=== PATIENT | male | born 1985 | race Caucasian/White ===

== ENCOUNTER → 2022-12-11 08:03 | Outpatient (BNVA) | payer OTHER, SELFPAY | PROVIDERS: PCP Nurse Practitioner Primary Care; Visit Provider Nurse Practitioner Family | DX: Z13.89 Encounter for screening for other disorder (principal) ==

== ENCOUNTER → 2023-01-08 09:21 | Outpatient (BNVA) | payer OTHER, SELFPAY | PROVIDERS: PCP Nurse Practitioner Primary Care; Visit Provider Nurse Practitioner Family | DX: Z13.89 Encounter for screening for other disorder (principal) ==

== ENCOUNTER → 2023-01-15 12:58 | Outpatient (BNVA) | payer OTHER, SELFPAY | PROVIDERS: PCP Nurse Practitioner Primary Care; Visit Provider Psychiatry & Neurology Neurology | DX: Z13.89 Encounter for screening for other disorder (principal) ==

== ENCOUNTER → 2023-02-20 07:23 | Outpatient (BNVA) | payer OTHER, SELFPAY | PROVIDERS: PCP Nurse Practitioner Primary Care; Visit Provider Psychiatry & Neurology Neurology | DX: G47.31 Primary central sleep apnea (principal); G47.9 Sleep disorder, unspecified ==

== ENCOUNTER → 2023-04-02 15:25 | Outpatient (BNVA) | payer OTHER, SELFPAY | PROVIDERS: PCP Nurse Practitioner Primary Care; Visit Provider Psychiatry & Neurology Neurology | DX: G47.31 Primary central sleep apnea (principal); G47.9 Sleep disorder, unspecified; G47.11 Idiopathic hypersomnia with long sleep time; F10.11 Alcohol abuse, in remission; G47.411 Narcolepsy with cataplexy; G47.33 Obstructive sleep apnea (adult) (pediatric); Z99.89 Dependence on other enabling machines and devices ==

== ENCOUNTER → 2023-04-20 14:01 | Outpatient (BNVA) | payer OTHER, SELFPAY | PROVIDERS: PCP Nurse Practitioner Primary Care; Visit Provider Psychiatry & Neurology Neurology ==

== ENCOUNTER 2023-05-07 11:24 | Outpatient (AMB) | payer OTHER, SELFPAY ==
--- NOTE | 2023-05-07 11:26 | MHC.OFFVIS ---
Intake Intake Visit Reasons: 6 wk f/u for Narcolepsy-confirmed Intake Note: F/U Narcolepsy Rn Patient Care Required: No Allergies pitolisant [From [employer]] Allergy (Intermediate, Verified 05/07/23 11:26) Rash and facial swelling HPI HPI Comments History of Present Illness Details 38 y/o male patient calls for follow up of sleep apnea and hypersomnia. He was started on Xywav 3 gm 2 doses per night 10 days ago. He noticed improvement in his sleep and Excessive daytime sleepiness. He thinks this is his optimal dose . Venancio Horn - pillowcase cutter He is currently at the [facility] living environment with house admin- Venancio Horn Previous history-Pt reported he was diagnosed with narcolepsy with cataplexy. Reviewed PSG/MSLT (05/2015): showed short sleep latency but no abnormal REM latency. Pt also had a series of genetic tests for narcolepsy/MS via company called [employer]: HLA -DQB1 marker was not on this test. 1. cataplexy usually triggered by physical pain , frustration or when he is happy ( rare) Pt's describes these cataplexy symptoms as body weakness and dropping items when he is frustrated. 2.He reports disrupted sleep, hypersomnia and frequent sleep attack, 2-3 times a day around 10 am, 12 pm and 4 pm.He has reasonable accommodation at work and is able to take 2 breaks 3.Pt reports that he can fall asleep but wakes 2 times a night and has vivid dreams . .He reports sleep paralysis and hypnogogic hallucinations Pt previously was on Xyrem 9 mg qHS for idiopathic hypersomnia. Pt reported hx of alcohol dependence along with Xyrem which resulted in ICU stay 09/05/22-09/10/22. Per [facility] discharge, pt has been drinking heavily for several months and Xyrem discontinued due to potential abuse. He was discharged and returned 09/11/22-09/13- for AMS. Pt reported he used to drink 6-8 drinks/week. He is now working with an outpatient recovery program. [facility] - he has weekly visits with assistant golf coach and Q 2weeks random urine screen Last drink Sep 05 2022 Loyd Farah is his senior resident care director Per previous sleep medicine note, there were reports by his that he was taking xyrem during the day and using more than prescribed. Pt states that that is false statement by his who is going through a divorce. Pt tried [facility] to replace Xyrem but had allergy reaction with facial swelling and rashes. Pt was on armodafilnil 250 mg daily with adderall 30 mg ER daily to treat hypersomnia. Adderall 30 mg ER was discontinued by his previous doctor due to hx of excessive ETOH use. ? He is currently on armodafinil 250 mg q daily. adderal 10 mg ESS today. Pt asking to resume Xyrem or Xywav He drink 2 pots of coffee to stay awake.? He reports 2-3 sleep attacks /day - 20-30 minutes around 11am and 1-2 pm , 5pm Pt also has hx of mild degree of sleep apnea. PSG 06/25/18-AHI 5 with oxyen mikhail 87%, REM AHI 17. He has a new CPAP and he is doing better. [facility] Medical History Cataplexy Neuroblastoma Status post placement of bone anchored hearing aid (BAHA) Tibia/fibula fracture Surgical History History of thoracic surgery Family History Mother Alcoholism Cancer Father Diabetes Agent orange exposure Family/Other Ovarian cancer Family/Other Prostate cancer Social History Alcohol intake: former Patient Tobacco Use Status: Former Tobacco user Use of substances other than those prescribed or required for medical reasons: No Physical Exam Const General: cooperative Orientation/consciousness: patient oriented x3 Neuro General: patient oriented x3 Assessment & Plan Assessment & Plan (1) Sleep disorder: Code(s): G47.9 - Sleep disorder, unspecified (2) Idiopathic hypersomnia: Code(s): G47.11 - Idiopathic hypersomnia with long sleep time (3) History of ETOH abuse: Code(s): F10.11 - Alcohol abuse, in remission (4) Cataplexy: Code(s): G47.411 - Narcolepsy with cataplexy (5) CONG on CPAP: Code(s): G47.33 - Obstructive sleep apnea (adult) (pediatric); Z99.89 - Dependence on other enabling machines and devices (6) Central sleep apnea: Code(s): G47.31 - Primary central sleep apnea Plan Continue xywav 3g 2 doses a night under supervision His house admin Venancio Marley [phone] will medicine in safe and dispense to him everyday He is on sunosi 150mg qam and it has helped. . Discussed side effects again home sleep study to assess sleep apnea- insurance denied Continue to use current CPAP nightly- will send a prescription for replacement unit. Is able to sleep better now . He uses WHOOP band which is helping with insomnia. Continue regular physical exercise. Encouraged patient to read Say Good Night to Insomnia and practice the 6 weeks sleep hygiene program. Continue to take armodafinil 250 mg daily. D/C baclofen and gabapentin Discussed about potential for abuse with stimulant medications. The patient is aware. 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 Telehealth Telehealth Location of provider rendering services: practice address Location of patient: address on file Patient Identification confirmed using: Name, : Yes Telehealth method: voice only Patient verbally consented to treatment: Yes Patient informed of any privacy concerns related to visit: Yes Minutes spent on Phone/Video with Pt.: 16 Coding Level of Care Code Tele Est Pt Level 3 (30186) Diagnoses Sleep disorder G47.9 Idiopathic hypersomnia G47.11 History of ETOH abuse F10.11 Cataplexy G47.411 CONG on CPAP G47.33; Z99.89 Central sleep apnea G47.31
== END 2023-05-13 08:34 | disposition home or self-care (01) ==
PROVIDERS: PCP Nurse Practitioner Primary Care; Visit Provider Psychiatry & Neurology Neurology
DX: G47.9 Sleep disorder, unspecified (principal); G47.11 Idiopathic hypersomnia with long sleep time; F10.11 Alcohol abuse, in remission; G47.411 Narcolepsy with cataplexy; G47.33 Obstructive sleep apnea (adult) (pediatric); Z99.89 Dependence on other enabling machines and devices; G47.31 Primary central sleep apnea
CPT/HCPCS: 99442

== ENCOUNTER → 2023-05-07 11:24 | Outpatient (BNVA) | payer OTHER, SELFPAY | PROVIDERS: PCP Nurse Practitioner Primary Care; Visit Provider Psychiatry & Neurology Neurology ==

== ENCOUNTER 2023-06-04 14:26 | Outpatient (AMB) | payer OTHER, SELFPAY ==
--- NOTE | 2023-06-04 14:26 | MHC.OFFVIS ---
Intake Intake Visit Reasons: Per MD-confirmed Intake Note: P:atient presents for follow up Allergies pitolisant [From [facility]] Allergy (Intermediate, Verified 06/04/23 14:26) Rash and facial swelling Medication List - Last Reconciled 06/04/23 by Chantell Rodarte MD armodafinil 250 mg PO QAM emtricitabine-tenofovir alafen 200-25 mg (Descovy) tabs PO levocetirizine (Xyzal) 5 mg PO DAILY naltrexone microspheres ER (Vivitrol) mg IM ondansetron 8 mg PO Q12H rimegepant (Nurtec ODT) 75 mg PO Q OTHER DAY solriamfetol 1 tab qam HPI HPI Comments History of Present Illness Details 38 y/o male patient calls for follow up of sleep apnea and hypersomnia. He was started on Xywav 3 gm 2 doses per night 45 days ago. He noticed improvement in his sleep and Excessive daytime sleepiness. He has a mild cataplexy 1 episode - usually drops his keys when he is searching for his keys He has 1 sleep attack a day Venancio Horn - special education case manager He is currently at the [facility] living environment with oil house attendant- Venancio Horn Previous history-Pt reported he was diagnosed with narcolepsy with cataplexy. Reviewed PSG/MSLT (05/2015): showed short sleep latency but no abnormal REM latency. Pt also had a series of genetic tests for narcolepsy/MS via company called [employer]: HLA -DQB1 marker was not on this test. 1. cataplexy usually triggered by physical pain , frustration or when he is happy ( rare) Pt's describes these cataplexy symptoms as body weakness and dropping items when he is frustrated. 2.He reports disrupted sleep, hypersomnia and frequent sleep attack, 2-3 times a day around 10 am, 12 pm and 4 pm.He has reasonable accommodation at work and is able to take 2 breaks 3.Pt reports that he can fall asleep but wakes 2 times a night and has vivid dreams . .He reports sleep paralysis and hypnogogic hallucinations Pt previously was on Xyrem 9 mg qHS for idiopathic hypersomnia. Pt reported hx of alcohol dependence along with Xyrem which resulted in ICU stay 09/05/22-09/10/22. Per [facility] discharge, pt has been drinking heavily for several months and Xyrem discontinued due to potential abuse. He was discharged and returned 09/11/22-09/13- for AMS. Pt reported he used to drink 6-8 drinks/week. He is now working with an outpatient recovery program. [facility] - he has weekly visits with pipe recovery specialist and Q 2weeks random urine screen Last drink Sep 05 2022 Loyd Farah is his technical healthcare consultant Per previous sleep medicine note, there were reports by his that he was taking xyrem during the day and using more than prescribed. Pt states that that is false statement by his who is going through a divorce. Pt tried [facility] to replace Xyrem but had allergy reaction with facial swelling and rashes. Pt was on armodafilnil 250 mg daily with adderall 30 mg ER daily to treat hypersomnia. Adderall 30 mg ER was discontinued by his previous doctor due to hx of excessive ETOH use. ? He is currently on armodafinil 250 mg q daily. sunosi 150mg qam ESS today. He drink 2 pots of coffee to stay awake.? He reports 2- sleep attacks /day - 20-30 minutes around 11am and 1-2 pm , 5pm Pt also has hx of mild degree of sleep apnea. PSG 06/25/18-AHI 5 with oxyen mikhail 87%, REM AHI 17. He has a new CPAP and he is doing better. [facility] Medical History Cataplexy Neuroblastoma Status post placement of bone anchored hearing aid (BAHA) Tibia/fibula fracture Surgical History History of thoracic surgery Family History Mother Alcoholism Cancer Father Diabetes Agent orange exposure Family/Other Ovarian cancer Family/Other Prostate cancer Social History Alcohol intake: former Patient Tobacco Use Status: Former Tobacco user Questionnaire [place] Sleepiness Scale Questions Sitting and reading: high chance of dozing Watching TV: moderate chance of dozing Sitting inactive in a theater, movie etc.: moderate chance of dozing As a passenger in a car for an hour without break: high chance of dozing Lying down in the afternoon when circumstances permit: high chance of dozing Sitting and talking to someone: would never doze Sitting quietly after lunch without alcohol: moderate chance of dozing In a car, while stopped for a few minutes in the traffic: would never doze ESS < 10: normal, ESS > 12: pathologic: 15 Physical Exam Const General: cooperative Orientation/consciousness: patient oriented x3 Neuro General: patient oriented x3 Assessment & Plan Assessment & Plan (1) Sleep disorder: Code(s): G47.9 - Sleep disorder, unspecified (2) Idiopathic hypersomnia: Code(s): G47.11 - Idiopathic hypersomnia with long sleep time (3) History of ETOH abuse: Code(s): F10.11 - Alcohol abuse, in remission (4) Cataplexy: Code(s): G47.411 - Narcolepsy with cataplexy (5) CONG on CPAP: Code(s): G47.33 - Obstructive sleep apnea (adult) (pediatric); Z99.89 - Dependence on other enabling machines and devices (6) Central sleep apnea: Code(s): G47.31 - Primary central sleep apnea Plan Increase xywav 3.75g 2 doses a night under supervision His oil house attendant Venancio Marley [phone] will medicine in safe and dispense to him everyday He is on sunosi 150mg qam and it has helped. . Discussed side effects again home sleep study to assess sleep apnea- insurance denied Continue to use current CPAP nightly- will send a prescription for replacement unit. Is able to sleep better now . He uses WHOOP band which is helping with insomnia. Continue regular physical exercise. Encouraged patient to read Say Good Night to Insomnia and practice the 6 weeks sleep hygiene program. Continue to take armodafinil 250 mg daily. D/C baclofen and gabapentin Discussed about potential for abuse with stimulant medications. The patient is aware. 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 Medications: New sodium,calcium,mag,pot oxybate 0.5 gram/mL (Xywav) administer the first dose at bedtime and the second dose 2.5-4 hours later 3 grams PO BID Telehealth Telehealth Location of provider rendering services: practice address Location of patient: address on file Patient Identification confirmed using: Name, : Yes Telehealth method: voice only Patient verbally consented to treatment: Yes Patient verbally consented to billing insurance company: Yes Patient informed of any privacy concerns related to visit: Yes Coding Level of Care Code Tele Est Pt Level 4 (61468) Diagnoses Sleep disorder G47.9 Idiopathic hypersomnia G47.11 History of ETOH abuse F10.11 Cataplexy G47.411 CONG on CPAP G47.33; Z99.89 Central sleep apnea G47.31 Time Spent (min) 23
== END 2023-06-04 16:10 | disposition home or self-care (01) ==
LOC: HO.HSMS 14:26
PROVIDERS: PCP Nurse Practitioner Primary Care; Visit Provider Psychiatry & Neurology Neurology
DX: G47.9 Sleep disorder, unspecified (principal); G47.11 Idiopathic hypersomnia with long sleep time; F10.11 Alcohol abuse, in remission; G47.411 Narcolepsy with cataplexy; G47.33 Obstructive sleep apnea (adult) (pediatric); Z99.89 Dependence on other enabling machines and devices; G47.31 Primary central sleep apnea
CPT/HCPCS: 99442

== ENCOUNTER → 2023-06-04 14:26 | Outpatient (BNVA) | payer OTHER, SELFPAY | PROVIDERS: PCP Nurse Practitioner Primary Care; Visit Provider Psychiatry & Neurology Neurology ==

== ENCOUNTER 2023-07-14 10:27 | Outpatient (AMB) | payer OTHER, SELFPAY ==
--- NOTE | 2023-07-14 10:36 | MHC.OFFVIS ---
Intake Vital Signs 07/14/23 10:38 Height 6 ft Weight 187 lb 6 oz BMI 25.4 BP 132/70 Blood Pressure Location Rt brachial Position Sitting Pulse 101 H Pulse Source Pulse Oximeter Pulse Oximetry (%) 100 Oxygen Delivery Method Room Air Intake Visit Reasons: Monthly follow-up Intake Note: Pt is doing well. Allergies pitolisant [From [facility]] Allergy (Intermediate, Verified 07/14/23 10:41) Rash and facial swelling HPI HPI Comments History of Present Illness Details 38 y/o male patient calls for follow up of sleep apnea and hypersomnia. He is on Xywav 3.75 gm 2 doses per night is doing good.He noticed improvement in his sleep and Excessive daytime sleepiness. He denies cataplexy , he has occasional brief sleep paralysis. CPAP compliance 04/02/23-06/30/23 100% 5-15 cm AHI 7.3 He is currently in a short term rental at [place] and is moving to an apartment in [place] in 2 weeks- [facility] does 2 home visits a week. Previous history-Pt reported he was diagnosed with narcolepsy with cataplexy. Reviewed PSG/MSLT (05/2015): showed short sleep latency but no abnormal REM latency. Pt also had a series of genetic tests for narcolepsy/MS via company called [employer]: HLA -DQB1 marker was not on this test. 1. cataplexy usually triggered by physical pain , frustration or when he is happy ( rare) Pt's describes these cataplexy symptoms as body weakness and dropping items when he is frustrated. 2.He reports disrupted sleep, hypersomnia and frequent sleep attack, 2-3 times a day around 10 am, 12 pm and 4 pm.He has reasonable accommodation at work and is able to take 2 breaks 3.Pt reports that he can fall asleep but wakes 2 times a night and has vivid dreams . .He reports sleep paralysis and hypnogogic hallucinations Pt previously was on Xyrem 9 mg qHS for idiopathic hypersomnia. Pt reported hx of alcohol dependence along with Xyrem which resulted in ICU stay 09/05/22-09/10/22. Per [facility] discharge, pt has been drinking heavily for several months and Xyrem discontinued due to potential abuse. He was discharged and returned 09/11/22-11/19-22 for AMS. Pt reported he used to drink 6-8 drinks/week. He is now working with an outpatient recovery program. [facility] - he has weekly visits with trolley coach driver and Q 2weeks random urine screen Last drink Sep 05 2022 Loyd Farah is his director of health care marketing Per previous sleep medicine note, there were reports by his that he was taking xyrem during the day and using more than prescribed. Pt states that that is false statement by his who is going through a divorce. Pt tried [facility] to replace Xyrem but had allergy reaction with facial swelling and rashes. Pt was on armodafilnil 250 mg daily with adderall 30 mg ER daily to treat hypersomnia. Adderall 30 mg ER was discontinued by his previous doctor due to hx of excessive ETOH use. ? He is currently on armodafinil 250 mg q daily. sunosi 150mg qam ESS today. He drink 2 pots of coffee to stay awake.? He reports 2- sleep attacks /day - 20-30 minutes around 11am and 1-2 pm , 5pm Pt also has hx of mild degree of sleep apnea. PSG 06/25/18-AHI 5 with oxyen mikhail 87%, REM AHI 17. He has a new CPAP and he is doing better. [facility] Medical History Cataplexy Status post placement of bone anchored hearing aid (BAHA) Neuroblastoma Tibia/fibula fracture Surgical History History of thoracic surgery Family History Mother Alcoholism Cancer Father Diabetes Agent orange exposure Family/Other Ovarian cancer Family/Other Prostate cancer Social History Alcohol intake: former Patient Tobacco Use Status: Former Tobacco user Physical Exam Vital Signs: Last Vital Signs Pulse 101 H 07/14/23 10:38 BP 132/70 07/14/23 10:38 Pulse Ox 100 07/14/23 10:38 Oxygen Delivery Method Room Air 07/14/23 10:38 BMI result Body Mass Index 25.4 Const General: cooperative Orientation/consciousness: patient oriented x3 Neuro General: patient oriented x3 Assessment & Plan Assessment & Plan (1) Sleep disorder: Code(s): G47.9 - Sleep disorder, unspecified (2) Idiopathic hypersomnia: Code(s): G47.11 - Idiopathic hypersomnia with long sleep time (3) History of ETOH abuse: Code(s): F10.11 - Alcohol abuse, in remission (4) Cataplexy: Code(s): G47.411 - Narcolepsy with cataplexy (5) CONG on CPAP: Code(s): G47.33 - Obstructive sleep apnea (adult) (pediatric); Z99.89 - Dependence on other enabling machines and devices (6) Central sleep apnea: Code(s): G47.31 - Primary central sleep apnea Plan Continue xywav 3.75g 2 doses a night ( 9/30 -10pm and 12.30-1 am ) He is on sunosi 150mg qam and it has helped. . Discussed side effects again Continue to take armodafinil 250 mg daily. D/C baclofen and gabapentin Discussed about potential for abuse with stimulant medications. The patient is aware. 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 Coding Level of Care Code Est Pt Level 4 (48227) Diagnoses Sleep disorder G47.9 Idiopathic hypersomnia G47.11 History of ETOH abuse F10.11 Cataplexy G47.411 CONG on CPAP G47.33; Z99.89 Central sleep apnea G47.31
[2023-07-14 10:38] VITALS: BP 132/70; PULSE 101; O2SAT 100; BMI 25.4
== END 2023-07-14 10:57 | disposition home or self-care (01) ==
PROVIDERS: PCP Nurse Practitioner Primary Care; Visit Provider Psychiatry & Neurology Neurology
DX: G47.9 Sleep disorder, unspecified (principal); G47.11 Idiopathic hypersomnia with long sleep time; F10.11 Alcohol abuse, in remission; G47.411 Narcolepsy with cataplexy; G47.33 Obstructive sleep apnea (adult) (pediatric); Z99.89 Dependence on other enabling machines and devices; G47.31 Primary central sleep apnea
CPT/HCPCS: 99214

== ENCOUNTER → 2023-07-14 10:27 | Outpatient (BNVA) | payer OTHER, SELFPAY | PROVIDERS: PCP Nurse Practitioner Primary Care; Visit Provider Psychiatry & Neurology Neurology ==

== ENCOUNTER 2023-08-24 09:36 | Outpatient (AMB) | payer OTHER, SELFPAY ==
--- NOTE | 2023-08-24 09:37 | MHC.OFFVIS ---
Intake Intake Visit Reasons: 1 mnth f/u Video [id number] Intake Note: Pt on telehealth visit for 1 month follow up for Cataplexy. Allergies pitolisant [From [facility]] Allergy (Intermediate, Verified 08/24/23 09:43) Rash and facial swelling HPI HPI Comments History of Present Illness Details 38 y/o male patient calls for follow up of sleep apnea and hypersomnia. He is on Xywav 3.75 gm 2 doses per night is doing good.He noticed improvement in his sleep and Excessive daytime sleepiness. He denies cataplexy , he has occasional brief sleep paralysis.He has mild hallucinations He is in [place] in a rental apartment , still 2 visits per week with random testing from [facility]. He has 2 recovery caches and a respite care provider. [employer] is also helping and he is on naltrexone now.He goes to AA meeting once a day. He is now working with an outpatient recovery program. [facility] - he has weekly visits with employment coach and Q 2weeks random urine screen Last drink Sep 05 2022 Taylor Walters is his respite care provider Previous history-Pt reported he was diagnosed with narcolepsy with cataplexy. Reviewed PSG/MSLT (05/2015): showed short sleep latency but no abnormal REM latency. Pt also had a series of genetic tests for narcolepsy/MS via company called [employer]: HLA -DQB1 marker was not on this test. Pt previously was on Xyrem 9 mg qHS for idiopathic hypersomnia. Pt reported hx of alcohol dependence along with Xyrem which resulted in ICU stay 09/05/22-09/10/22. Per [facility] discharge, pt has been drinking heavily for several months and Xyrem discontinued due to potential abuse. He was discharged and returned 09/11/22- for AMS. Per previous sleep medicine note, there were reports by his that he was taking xyrem during the day and using more than prescribed. Pt states that that is false statement by his who is going through a divorce. Pt tried [facility] to replace Xyrem but had allergy reaction with facial swelling and rashes. Pt was on armodafilnil 250 mg daily with adderall 30 mg ER daily to treat hypersomnia. Adderall 30 mg ER was discontinued by his previous doctor due to hx of excessive ETOH use. ? He is currently on armodafinil 250 mg q daily. sunosi 150mg qam ESS 09/18 today. Pt also has hx of mild degree of sleep apnea. PSG 06/25/18-AHI 5 with oxyen mikhail 87%, REM AHI 17. He has a new CPAP and he is doing better. [facility] Medical History Cataplexy Status post placement of bone anchored hearing aid (BAHA) Neuroblastoma Tibia/fibula fracture Surgical History History of thoracic surgery Family History Mother Alcoholism Cancer Father Diabetes Agent orange exposure Family/Other Ovarian cancer Family/Other Prostate cancer Social History Alcohol intake: former Patient Tobacco Use Status: Former Tobacco user Physical Exam Const Other: Normal mood Speech normal General: cooperative Orientation/consciousness: patient oriented x3 Neuro General: patient oriented x3 Assessment & Plan Assessment & Plan (1) Idiopathic hypersomnia: Code(s): G47.11 - Idiopathic hypersomnia with long sleep time (2) History of ETOH abuse: Code(s): F10.11 - Alcohol abuse, in remission (3) Cataplexy: Code(s): G47.411 - Narcolepsy with cataplexy (4) CONG on CPAP: Code(s): G47.33 - Obstructive sleep apnea (adult) (pediatric); Z99.89 - Dependence on other enabling machines and devices (5) Central sleep apnea: Code(s): G47.31 - Primary central sleep apnea Plan Continue xywav 3.75g 2 doses a night ( 9/30 -10pm and 12.30-1 am ) He is on sunosi 150mg qam and it has helped. . Discussed side effects again Continue to take armodafinil 250 mg daily. D/C baclofen and gabapentin Discussed about potential for abuse with stimulant medications. The patient is aware. 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 This was a counseling predominated session Telehealth Telehealth Location of provider rendering services: practice address Location of patient: address on file Patient Identification confirmed using: Name, : Yes Patient verbally consented to treatment: Yes Patient verbally consented to billing insurance company: Yes Patient informed of any privacy concerns related to visit: Yes Minutes spent on Phone/Video with Pt.: 23 Coding Level of Care Code Tele Est Pt Level 4 (15719) Diagnoses Idiopathic hypersomnia G47.11 History of ETOH abuse F10.11 Cataplexy G47.411 CONG on CPAP G47.33; Z99.89 Central sleep apnea G47.31 Time Spent (min) 23 Comment reviewing medications, side effects, his recovery program etc
== END 2023-08-24 11:50 | disposition home or self-care (01) ==
LOC: HO.HSMS 09:37
PROVIDERS: PCP Nurse Practitioner Primary Care; Visit Provider Psychiatry & Neurology Neurology
DX: G47.11 Idiopathic hypersomnia with long sleep time (principal); F10.11 Alcohol abuse, in remission; G47.411 Narcolepsy with cataplexy; G47.33 Obstructive sleep apnea (adult) (pediatric); Z99.89 Dependence on other enabling machines and devices; G47.31 Primary central sleep apnea
CPT/HCPCS: 99214

== ENCOUNTER → 2023-08-24 09:36 | Outpatient (BNVA) | payer OTHER, SELFPAY | PROVIDERS: PCP Nurse Practitioner Primary Care; Visit Provider Psychiatry & Neurology Neurology ==

== ENCOUNTER 2023-11-23 14:51 | Outpatient (AMB) | payer OTHER, SELFPAY ==
--- NOTE | 2023-11-23 14:46 | MHC.OFFVIS ---
Intake Intake Visit Reasons: Follow up-LVM Allergies pitolisant [From [employer]] Allergy (Intermediate, Verified 08/24/23 09:43) Rash and facial swelling HPI HPI Comments History of Present Illness Details 38 y/o male patient calls for follow up of sleep apnea and hypersomnia. He tested positive for COVID 6 days ago and was unable to come to appointment. He is on Xywav 3.75 gm 2 doses per night is doing good.He noticed improvement in his sleep and Excessive daytime sleepiness. He denies cataplexy , he has occasional brief sleep paralysis.He has mild hallucinations He is in [place] in a rental apartment. He graduated from [employer] recovery program. He has 1 refinery operator light ends recovery and sees DRILL PRESS TENDER via [employer] and gets tested twice a week. He goes to AA meeting once a day. 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 Reviewed PSG/MSLT (05/2015): showed short sleep latency but no abnormal REM latency. Pt also had a series of genetic tests for narcolepsy/MS via company called [employer]: HLA -DQB1 marker was not on this test. Pt previously was on Xyrem 9 mg qHS for idiopathic hypersomnia. Pt reported hx of alcohol dependence along with Xyrem which resulted in ICU stay 09/05/22-09/10/22. Per [facility] discharge, pt has been drinking heavily for several months and Xyrem discontinued due to potential abuse. He was discharged and returned 09/11/22-09/13- for AMS. Per previous sleep medicine note, there were reports by his that he was taking xyrem during the day and using more than prescribed. Pt states that that is false statement by his who is going through a divorce. Pt tried [facility]akix to replace Xyrem but had allergy reaction with facial swelling and rashes. Pt was on armodafilnil 250 mg daily with adderall 30 mg ER daily to treat hypersomnia. Adderall 30 mg ER was discontinued by his previous doctor due to hx of excessive ETOH use. ? He is currently on armodafinil 250 mg q daily. sunosi 150mg qam ESS 09/18 today. Pt also has hx of mild degree of sleep apnea. PSG 06/25/18-AHI 5 with oxyen mikhail 87%, REM AHI 17. He has a new CPAP and he is doing better. [facility] Medical History Cataplexy Status post placement of bone anchored hearing aid (BAHA) Neuroblastoma Tibia/fibula fracture Surgical History History of thoracic surgery Family History Mother Alcoholism Cancer Father Diabetes Agent orange exposure Family/Other Ovarian cancer Family/Other Prostate cancer Social History Alcohol intake: former Patient Tobacco Use Status: Former Tobacco user Assessment & Plan Assessment & Plan (1) Idiopathic hypersomnia: Code(s): G47.11 - Idiopathic hypersomnia with long sleep time (2) History of ETOH abuse: Code(s): F10.11 - Alcohol abuse, in remission (3) Cataplexy: Code(s): G47.411 - Narcolepsy with cataplexy (4) CONG on CPAP: Code(s): G47.33 - Obstructive sleep apnea (adult) (pediatric); Z99.89 - Dependence on other enabling machines and devices (5) Central sleep apnea: Code(s): G47.31 - Primary central sleep apnea Plan Continue xywav 3.75g 2 doses a night ( 9/30 -10pm and 12.30-1 am ) He is on sunosi 150mg qam and it has helped. . Discussed side effects again Continue to take armodafinil 250 mg daily. Discussed about potential for abuse with stimulant medications. The patient is aware. 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 This was a counseling predominated session Telehealth Telehealth Location of provider rendering services: practice address Location of patient: address on file Patient Identification confirmed using: Name, : Yes Telehealth method: voice only Patient verbally consented to treatment: Yes Patient verbally consented to billing insurance company: Yes Patient informed of any privacy concerns related to visit: Yes Minutes spent on Phone/Video with Pt.: 16 Coding Level of Care Code Tele Est Pt Level 4 (96167) Diagnoses Idiopathic hypersomnia G47.11 History of ETOH abuse F10.11 Cataplexy G47.411 CONG on CPAP G47.33; Z99.89 Central sleep apnea G47.31
== END 2023-11-23 15:09 | disposition home or self-care (01) ==
LOC: HO.HSMS 14:51
PROVIDERS: PCP Nurse Practitioner Primary Care; Visit Provider Psychiatry & Neurology Neurology
DX: G47.11 Idiopathic hypersomnia with long sleep time (principal); G47.411 Narcolepsy with cataplexy; G47.33 Obstructive sleep apnea (adult) (pediatric); Z99.89 Dependence on other enabling machines and devices; F10.11 Alcohol abuse, in remission; G47.31 Primary central sleep apnea
CPT/HCPCS: 99442

== ENCOUNTER → 2023-11-23 14:51 | Outpatient (BNVA) | payer OTHER, SELFPAY | PROVIDERS: PCP Nurse Practitioner Primary Care; Visit Provider Psychiatry & Neurology Neurology ==

== ENCOUNTER 2024-02-18 07:30 | Outpatient (AMB) | payer OTHER, SELFPAY ==
--- NOTE | 2024-02-18 07:31 | MHC.OFFVIS ---
Vital Signs 02/18/24 07:33 Height 6 ft Weight 185 lb BMI 25.1 BP 126/68 Blood Pressure Location Rt brachial Position Sitting Respiration 16 Pulse 69 Pulse Source Pulse Oximeter Pulse Oximetry (%) 98 Oxygen Delivery Method Room Air Intake Visit Reasons: Follow up-CONF Intake Note: Pt presents for a 3 month follow up for cataplexy. Drainage Design Coordinator Required: No Allergies pitolisant [From [employer]] Allergy (Intermediate, Verified 02/18/24 07:32) Rash and facial swelling HPI Comments Details: 38 y/o male patient comes for follow up. He has been having GI symptoms since his COVID 3 months ago and 1 month ago he started having GI bleed- bright red stools, nausea, abdominal cramps. He stopped Xywav after talking to a pharmacist at [facility]. He is currently on baclofen 20mg qhs qhich is mildly his symptoms but he will be a good candidate for Lumryz. He has cataplexy- renata hand weakness, EDS and difficulty sleeping at night. He is in [place] in a rental apartment. He graduated from [employer] recovery program. 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 Reviewed PSG/MSLT (05/2015): showed short sleep latency but no abnormal REM latency. Pt also had a series of genetic tests for narcolepsy/MS via company called [employer]: HLA -DQB1 marker was not on this test. Pt previously was on Xyrem 9 mg qHS for idiopathic hypersomnia. Pt reported hx of alcohol dependence along with Xyrem which resulted in ICU stay 09/05/22-09/10/22. Per [facility] discharge, pt has been drinking heavily for several months and Xyrem discontinued due to potential abuse. He was discharged and returned 09/11/22-09/13- for AMS. Per previous sleep medicine note, there were reports by his that he was taking xyrem during the day and using more than prescribed. Pt states that that is false statement by his who is going through a divorce. Pt tried Wakix to replace Xyrem but had allergy reaction with facial swelling and rashes. Pt was on armodafilnil 250 mg daily with adderall 30 mg ER daily to treat hypersomnia. Adderall 30 mg ER was discontinued by his previous doctor due to hx of excessive ETOH use. ? He is currently on armodafinil 250 mg q daily. sunosi 150mg qam ESS 09/18 today. Pt also has hx of mild degree of sleep apnea. PSG 06/25/18-AHI 5 with oxyen mikhail 87%, REM AHI 17. He has a new CPAP and he is doing better. [facility] Medical History Cataplexy Status post placement of bone anchored hearing aid (BAHA) Neuroblastoma Tibia/fibula fracture Surgical History History of thoracic surgery Family History Mother Alcoholism Cancer Father Diabetes Agent orange exposure Family/Other Ovarian cancer Family/Other Prostate cancer Social History Alcohol intake: former Patient Tobacco Use Status: Former Tobacco user Physical Exam Vital Signs: Last Vital Signs Pulse 69 02/18/24 07:33 Resp 16 02/18/24 07:33 BP 126/68 02/18/24 07:33 Pulse Ox 98 02/18/24 07:33 Oxygen Delivery Method Room Air 02/18/24 07:33 BMI result Body Mass Index 25.1 Const Other: Normal mood Speech normal General: cooperative, healthy appearing, comfortable and no acute distress Orientation/consciousness: patient oriented x3 Eyes Pupils: Equal, round and reactive pupils present Neuro General: patient oriented x3, gait normal, tone normal, moves all extremities and no focal motor deficits Cranial nerves: Yes Facial sensation intact/muscles of mastication intact, Yes Equal, round and reactive pupils present, Yes Bilaterally intact EOM present, Yes Nystagmus not present, Yes Normal facial strength present, Yes Midline tongue present, Yes Symmetric palate elevation present and Yes Ability to bilaterally elevate shoulders present Cognition (Neuro): normal cognition Assessment & Plan Assessment & Plan (1) Narcolepsy and cataplexy: Comment: last MSLT in 2018 showed shortened sleep latency 10 min but no SOREM . patient will send genetic test results Code(s): G47.411 - Narcolepsy with cataplexy Category: Medical (2) Idiopathic hypersomnia: Code(s): G47.11 - Idiopathic hypersomnia with long sleep time Category: Medical (3) History of ETOH abuse: Code(s): F10.11 - Alcohol abuse, in remission Category: Medical (4) CONG on CPAP: Code(s): G47.33 - Obstructive sleep apnea (adult) (pediatric); Z99.89 - Dependence on other enabling machines and devices Category: Medical (5) Central sleep apnea: Code(s): G47.31 - Primary central sleep apnea Category: Medical Plan Lumryz - side effects discussed CONTRAINDICATED WITH ANY CONCOMITANT ALCOHOL USE< SEDATIVE HYPNOTCS OR ANY +THING THAT CAUSES VULNERABILITY RESEARCHER OR RESPIRATORY DEPRESSION He is closely monitored for his h/o alcohol abuse by [facility] health and strength and conditioning coach. I will trial him on 4.5 gm qhs - avoid nay activity that requires mental alertness for 8 hrs after the dose. He is on sunosi 150mg qam and it has helped. .baclofen 20mg qhs Discussed side effects again Continue to take armodafinil 250 mg daily. Discussed about potential for abuse with stimulant medications. The patient is aware. 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 FMLA form filled This was a counseling predominated session Coding Level of Care Code Est Pt Level 5 (05633) Diagnoses Narcolepsy and cataplexy G47.411 Idiopathic hypersomnia G47.11 History of ETOH abuse F10.11 CONG on CPAP G47.33; Z99.89 Central sleep apnea G47.31
[2024-02-18 07:33] VITALS: BP 126/68; PULSE 69; RESP 16; O2SAT 98; BMI 25.1
== END 2024-02-18 08:04 | disposition home or self-care (01) ==
PROVIDERS: PCP Nurse Practitioner Primary Care; Visit Provider Psychiatry & Neurology Neurology
DX: G47.411 Narcolepsy with cataplexy (principal); G47.11 Idiopathic hypersomnia with long sleep time; F10.11 Alcohol abuse, in remission; G47.33 Obstructive sleep apnea (adult) (pediatric); Z99.89 Dependence on other enabling machines and devices; G47.31 Primary central sleep apnea
CPT/HCPCS: 99215

== ENCOUNTER → 2024-02-18 07:30 | Outpatient (BNVA) | payer OTHER, SELFPAY | PROVIDERS: PCP Nurse Practitioner Primary Care; Visit Provider Psychiatry & Neurology Neurology ==

== ENCOUNTER 2024-03-30 09:26 | Day surgery (SDC) | payer OTHER, SELFPAY ==
--- NOTE | ~2024-03-30 | FL_ITS ---
Fluoroscopic lumbar puncture Indication: Narcolepsy with cataplexy. FL/FL guided lumbar puncture LP FINDINGS/IMPRESSION: Risks and benefits and possible complications were discussed with the patient and the consent form was signed. Patient was placed prone on the fluoroscopy table. The back was prepped and draped in routine sterile fashion. Betadine was used as a skin antiseptic. Utilizing fluoroscopic guidance, the L3-4 interlaminar space was accessed with a 22 gauge Jon spinal needle and clear CSF fluid was obtained. 6 cc of fluid was sent for analysis. The needle was removed without immediate complications. Total fluoroscopy time: 0.3 min Single spot image obtained. Dose: 19.39 mGy DAP: 300.2 uGy IMPRESSION: Successful diagnostic fluoroscopic lumbar puncture as described. This procedure was performed by Kevin Garvin PA-C and supervised by Dr. Cox.
[2024-03-30 10:57] VITALS: BMI 26.2
[2024-03-30 11:59] VITALS: BP 127/78; PULSE 60; RESP 14; TEMP 36.7; O2SAT 95
[2024-03-30 12:14] VITALS: BP 118/67; PULSE 75; RESP 15; O2SAT 98
[2024-03-30 12:29] VITALS: BP 166/64; PULSE 60; RESP 15; O2SAT 98
[2024-03-30 12:44] VITALS: BP 116/66; PULSE 66; RESP 15; O2SAT 97
[2024-03-30 12:59] VITALS: BP 128/73; PULSE 58; RESP 14; O2SAT 96
--- OUTSIDE RECORDS SUMMARY | 2024-04-01 10:17 | XMS_ITS | Continuity of Care Document ---
Author Organization [facility] Address [address] [place] [id number]- Care Team Providers Care Machine Repairer Maintenance Name Role Phone Galina HOSKINS, Ryanne Donovan Primary Care Physician Encounter [facility] Date(s): 08/26/22 - 08/26/[address] [address]- Discharge Disposition: A-D/C Home Attending Physician: Elizabeth Cheema MD Admitting Physician: Elizabeth Cheema MD Referring Physician: Elizabeth Cheema MD Allergies, Adverse Reactions, Alerts No Known Allergies Immunizations Given and Recorded Vaccine Date Status Refusal Reason Influenza Virus Vaccine (oldterm) 07/28/19 Recorde d influenza virus vaccine, inactivated 08/09/16 Robson rded tetanus/diphtheria/pertussis, acel(Tdap) 06/13/15 Given tetanus/diphtheria/pertussis, acel(Tdap) 1 07/05/10 Given hepatitis B adult vaccine 2 04/13/13 Given tetanus-diphtheria toxoids (Td) 11/26/02 Recorded tetanus-diphtheria toxoids (Td) 05/04/90 Recorded tetanus-diphtheria toxoids (Td) 04/25/90 Recorded Measles/Mumps/Rubella Virus Vaccine 05/26/97 Recor ded Measles/Mumps/Rubella Virus Vaccine 05/19/94 Recor ded Measles/Mumps/Rubella Virus Vaccine 08/12/86 Recor ded hepatitis B pediatric vaccine 02/23/97 Recorded hepatitis B pediatric vaccine 01/24/97 Recorded Haemophilus B conjugate (HbOC) vaccine 05/04/87 Re corded Diphth/Pertussis, Whl Cell/Tet(oldterm) 05/04/87 R ecorded Diphth/Pertussis, Whl Cell/Tet(oldterm) 11/26/86 R ecorded Diphth/Pertussis, Whl Cell/Tet(oldterm) 02/23/86 R ecorded Diphth/Pertussis, Whl Cell/Tet(oldterm) 85 R ecorded Poliovirus Vaccine, Inactivated 11/26/86 Recorded Poliovirus Vaccine, Inactivated 02/23/86 Recorded Poliovirus Vaccine, Inactivated 85 Recorded 1Admin Note: Vim given 2Admin Note: vis given Medications baclofen 10 mg oral tablet 10 mg, 1, tablet, By Mouth, Daily, Refills 0, Maintenance, 01/08/21 16:09:00 EDT, Partial fill uponpatient request if the prescription is for a schedule II opioid drug. Start Date: 01/08/21 Status: Ordered Golytely - oral powder for reconstitution 240 mL, By Mouth, Every 15 minutes, Start at 5pm the night before the procedure drink half Drink the other half 6 hours before procedure, # 1 each, 0 Refills, Maintenance, 08/19/22 12:04:00 EDT, REC Powder, [facility]/pharmacy #[id number], Partial fill upon juan carlos... Start Date: 08/19/22 Status: Ordered hydrocortisone-pramoxine 2.5%-1% topical cream 1 application, Topically, 2 times a day, for 7 days, # 30 Gm, 0 Refills, Acute 09/02/22 13:15:00 EST, 08/26/22 13:15:00 EDT, Cream, [facility]/pharmacy #[id number], Partial fill upon patient request if the prescription is for a schedule II opioid drug., 1 applicat... Start Date: 08/26/22 Stop Date: 09/02/22 Status: Ordered hydrOXYzine hydrochloride 10 mg oral tablet 1 tablet = 10 mg, By Mouth, 4 times a day, 0 Refills, Maintenance, 01/08/21 16:10:00 EDT, Partial fill upon patient request if the prescription is for a schedule II opioid drug. Start Date: 01/08/21 Status: Ordered Nuvigil 250 mg oral tablet 1 tablet = 250 mg, By Mouth, Daily, 0 Refills, Maintenance, 01/08/21 16:11:00 EDT, Tablet, Partial fill upon patient request if the prescription is for a schedule II opioid drug. Start Date: 01/08/21 Status: Ordered omeprazole 20 mg oral enteric coated capsule 1 capsule, By Mouth, Daily, # 90 capsule, 3 Refills, Maintenance, 12/06/21 8:53:00 EST, [facility], 91.4, kg, 01/28/21 7:04:00 EDT, Dry Weight Start Date: 12/06/21 Status: Ordered prazosin 2 mg oral capsule 1 capsule = 2 mg, By Mouth, Daily at bedtime, 0 Refills, Maintenance, 01/08/21 16:09:00 EDT, Partial fill upon patient request if the prescription is for a schedule II opioid drug. Start Date: 01/08/21 Status: Ordered Xyrem = 4.5 Gm, By Mouth, Daily at bedtime, take twice nightly: 1999 and 2229, 0 Refills, Maintenance, 09/24/16 12:44:44 Start Date: 09/24/16 Status: Ordered Problem List Condition Confirmation Course Effective Dates Status Health St atus Informant Abdominal pain, JOSÉ MIGUEL Confirmed Active Gait difficullty Confirmed Active Asthma Confirmed Active Hypersomnia Confirmed Active Idiopathic hypersomnia with long sleep time Confirmed Active Fever, unknown origin, elev temp 99-100 in afternoon Confirmed Active Rectal bleeding Confirmed Active Thoracic Neuroblastoma, s/p resection at 8 wks of age Confirmed Active Weight loss, non-intentional Confirmed Active Vital Signs Most recent to oldest [Reference Range]: 1 2 3 Height 182 cm (08/26/22 11:12 AM) Oxygen Saturation [94-100 %] 99 % (08/26/22 1:30 PM) 99 % (08/26/22 1:10 PM) 99 % (08/26/22 1:05 PM) Pulse Rate [55-90 bpm] 98 bpm *H* (08/26/22 11:12 AM) Blood Pressure [90-138/55-84 mm Hg] 139/93mm Hg *H* (08/26/22 1:30 PM) 133/98mm Hg (08/26/22 1:10 PM) 125/83mm Hg (08/26/22 1:05 PM) Respiratory Rate [16-30 br/min] 17 br/min (08/26/22 1:30 PM) 18 br/min (08/26/22 1:10 PM) 22 br/min (08/26/22 1:05 PM) Temperature [96.8-100.4 DegF] 98.4 DegF (08/26/22 11:12 AM) Mode of Delivery (Oxygen) Room air (08/26/22 1:30 PM) Room air (08/26/22 1:10 PM) Room air (08/26/22 1:05 PM) Blood pressure sites Arm, left (08/26/22 11:12 AM) Temperature Route Temporal (08/26/22 11:12 AM) Dry Weight 83.9 kg (08/26/22 11:12 AM) Dry Weight Obtained Via Standing scale (08/26/22 11:12 AM) Social History Social History Type Response Smoking Status Never smoker entered on: 12/22/13 Sex Patient Care team information Personnel Name: Ryanne Mojica NP Address: Address: [address] [place] [address]
--- OUTSIDE RECORDS SUMMARY | 2024-04-01 10:17 | XMS_ITS | Continuity of Care Document ---
Author Organization [facility] Address [address] [place] [address]- Care Team Providers Care Chef Teacher Name Role Phone Galina HOSKINS, Ryanne Donovan Primary Care Physician Encounter [facility] Date(s): 06/26/22 - 07/26/22 [facility] [address] [place] [address]- Referring Physician: Fadia Alcazar Allergies, Adverse Reactions, Alerts No Known Allergies [...] opioid drug. Start Date: 01/08/21 Status: Ordered hydrOXYzine hydrochloride 10 mg oral [...] Confirmed Active Weight loss, non-intentional Confirmed Active Social History Social History Type Response Smoking Status Never smoker entered on: 12/22/13 Sex Patient Care team information Personnel Name: Ryanne Mojica NP Address: Address: [address] [place] [address]
--- OUTSIDE RECORDS SUMMARY | 2024-04-01 10:17 | XMS_ITS | Continuity of Care Document ---
Author Organization [facility] Address [address] [place] [address]- Care Team Providers Care Habitat Biologist Name Role Phone Galina HOSKINS, Ryanne Donovan Primary Care Physician [place] [facility] [place] 12/[place]/22 [facility] [address] [place] [address]- Allergies, Adverse Reactions, Alerts No Known Allergies Immunizations Given and Recorded Vaccine Date Status Refusal Reason influenza virus vaccine, inactivated 07/17/22 Robson rded influenza virus vaccine, inactivated 08/22/21 Robson rded influenza virus vaccine, inactivated 07/21/20 Robson rded influenza virus vaccine, inactivated 06/26/17 Robson rded influenza virus vaccine, inactivated 08/09/16 Robson rded [id number] 12y+ bivalent booster vax 07/17/22 Recorded SARS-CoV-2 (COVID-19) mRNA BNT-162b2 vac 08/22/21 Recorded SARS-CoV-2 (COVID-19) mRNA BNT-162b2 vac 02/20/21 Recorded SARS-CoV-2 (COVID-19) mRNA BNT-162b2 vac 01/29/21 Recorded pneumococcal 23-valent vaccine 07/21/20 Recorded Influenza Virus Vaccine (oldterm) 07/28/19 Recorde d tetanus/diphtheria/pertussis, acel(Tdap) 06/13/15 Given tetanus/diphtheria/pertussis, acel(Tdap) 1 [...] Vim given 2Admin Note: vis given Medications Albuterol (Eqv-ProAir HFA) 90 mcg/inh inhalation aerosol 2 puffs, Inhalation, Every 6 hours, PRN Wheezing/Shortness of Breath, 0 Refills, Maintenance, 09/11/22 22:10:00 EST, Partial fill upon patient request if the prescription is for a schedule II opioid drug. Start Date: 09/11/22 Status: Ordered armodafinil 250 mg oral tablet 1 tablet = 250 mg, By Mouth, Daily, PRN Other, 0 Refills, Maintenance, 09/11/22 22:13:00 EST, Partial fill upon patient request if the prescription is for a schedule II opioid drug. Start Date: 09/11/22 Status: Ordered baclofen 10 mg oral tablet 10 mg, 1, tablet, By Mouth, Daily, PRN, Refills 0, Maintenance, Other, 01/08/21 16:09:00 EDT, Partial fill upon patient request if the prescription is for a schedule II opioid drug. Start Date: 01/08/21 Status: Ordered Emgality Prefilled Pen 120 mg/mL subcutaneous solution = 120 mg, Subcutaneous Infusion, Every 28 days, 0 Refills, Maintenance, 09/11/22 22:17:00 EST, Partial fill upon patient request if the prescription is for a schedule II opioid drug. Start Date: 09/11/22 Status: Ordered escitalopram 20 mg oral tablet 1 tablet = 20 mg, By Mouth, Daily, # 30 tablet, 0 Refills, Maintenance, 09/11/22 22:14:00 EST, Tablet, Partial fill upon patient request if the prescription is for a schedule II opioid drug. Start Date: 09/11/22 Status: Ordered Lamotrigine 50 mg, By Mouth, Daily, Refills 0, Maintenance, 09/11/22 22:15:00 EST, Partial fill upon patient request if the prescription is for a schedule II opioid drug. Start Date: 09/11/22 Status: Ordered Multi Vitamin+ 1 tab, Daily, 0 Refills, Maintenance, 09/11/22 22:10:00 EST, Partial fill upon patient request if the prescription is for a schedule II opioid drug. Start Date: 09/11/22 Status: Ordered Nurtec ODT 75 mg oral tablet, disintegrating 1 tablet = 75 mg, By Mouth, Every 24 hours, PRN as needed for migraine headache, not to exceed 75 mg in 24 hours, # 8 tablet, 5 Refills, Maintenance, 09/11/22 22:06:00 EST, DIS Tablet, Partial fill upon patient request if the prescription is for a jack... Start Date: 09/11/22 Status: Ordered omeprazole 20 mg oral enteric coated capsule 1 capsule, By Mouth, Daily, # 90 capsule, 3 Refills, Maintenance, 11/11/22 11:31:00 EST, [facility]/pharmacy #[id number], 183, cm, 09/19/22 14:01:00 EST, Height, 86.6, kg, 09/11/22 22:19:00 EST, Dry Weight Start Date: 11/11/22 Status: Ordered Slippery Elm 4 capsules, 3 times a day, 0 Refills, Maintenance, 09/11/22 22:11:00 EST, Partial fill upon patientrequest if the prescription is for a schedule II opioid drug. Start Date: 09/11/22 Status: Ordered tretinoin 0.025% topical cream Topically, Daily at bedtime, 0 Refills, Maintenance, 09/11/22 22:18:00 EST, Partial fill upon patient request if the prescription is for a schedule II opioid drug. Start Date: 09/11/22 Status: Ordered Xyrem 500 mg/mL oral liquid 4.5 mL = 2,250 mg, By Mouth, 2 times a day, 0 Refills, Maintenance, 09/11/22 22:12:00 EST, Liquid, Partial fill upon patient request if the prescription is for a schedule II opioid drug. Start Date: 09/11/22 Status: Ordered Zofran ODT 4 mg oral tablet, disintegrating = 8 mg, By Mouth, Every 8 hours, PRN as needed for nausea/vomiting, 0 Refills, Maintenance, 09/11/22 22:08:00 EST, DIS Tablet, Partial fill upon patient request if the prescription is for a schedule II opioid drug. Start Date: 09/11/22 Status: Ordered Problem List Condition Confirmation Course [...] on: 12/22/13 Sex Patient Care team information Care Team Personnel Name: Galina HOSKINS, Ryanne Donovan Position: Reference Physician Member Role: PCP Address: Address: [address] [place] [id number]- Care Team Related Persons Name: NATALIA CONTRERAS Address: home [address] [place] [address] Name: KATIE KITCHEN Address: home [address] [place] [address] Name: CLARITA MCCORMACK Address: home [address] [place] [address]
--- OUTSIDE RECORDS SUMMARY | 2024-04-01 10:17 | XMS_ITS | Continuity of Care Document ---
Author Organization [facility] Address [address] [place] [address]- Care Team Providers Care Director Maternal Child Name Role Phone Galina HOSKINS, Ryanne Donovan Primary Care Physician Encounter [facility] [place] Date(s): 03/14/21 - 04/13/21 [facility] [address] [place] [phone]- Attending Physician: Jesus Nicole Admitting Physician: Jesus Nicole Referring Physician: AdmtrJesus Allergies, Adverse Reactions, Alerts Substance Reaction Severity Status NKA Active Immunizations Given and Recorded Vaccine Date Status [...] 20 mg oral enteric coated capsule 1 capsule = 20 mg, By Mouth, 2 times a day, for 30 days, # 60 capsule, 5 Refills, Hard Stop 07/27/21 8:44:00 EDT, 01/28/21 8:44:00 EDT, EC Capsule, [id number], Partial fill upon patient request if the prescription is for a schedule II opioid d... Start Date: 01/28/21 Stop Date: 07/27/21 Status: Ordered omeprazole 20 mg oral enteric coated capsule 1 capsule = 20 mg, By Mouth, 2 times a day, # 60 capsule, 3 Refills, Maintenance, 07/27/21 8:44:00 EDT, EC Capsule, [id number], Partial fill upon patient request if the prescription is for a schedule II opioid drug., 91.4, kg, 01/28/21 7:04:00... Start Date: 07/27/21 Stop Date: 11/24/21 Status: Ordered prazosin 2 mg oral capsule [...] Date: 09/24/16 Status: Ordered Problem List Condition Effective Dates Status Health Status Inform ant Abdominal pain, JOSÉ MIGUEL(Confirmed) Active Gait difficullty(Confirmed) Active Asthma(Confirmed) Active Hypersomnia(Confirmed) Active Idiopathic hypersomnia with long sleep time(Confirmed) Active Fever, unknown origin, elev temp 99-100 in afternoon(Confirmed) Active Rectal bleeding(Confirmed) Active Thoracic Neuroblastoma, s/p resection at 8 wks of age(Confirmed) Active Weight loss, non-intentional(Confirmed) Active Social History Social History Type Response Smoking Status Never smoker entered on: 12/22/13 Sex
--- OUTSIDE RECORDS SUMMARY | 2024-04-01 10:17 | XMS_ITS | Continuity of Care Document ---
Author Organization [facility] Address [address] [place] [address]- Care Team Providers Care Athletic Team Physician Name Role Phone Ryanne Mojica NP Primary Care Physician Encounter [facility] [place] Date(s): 06/23/22 - 08/07/22 [facility] [address] [place] [phone]- Attending Physician: Not on Staff, Attending MD Referring Physician: Ryanne Mojica NP Allergies, Adverse Reactions, Alerts No Known Allergies [...] Sex Patient Care team information Personnel Name: Galina HOSKINS, Ryanne Donovan Address: Address: [address] [place] [address]
--- OUTSIDE RECORDS SUMMARY | 2024-04-01 10:17 | XMS_ITS | Continuity of Care Document ---
Author Organization [facility] Address [address] [place] [id number]- Care Team Providers Care Results Technician Name Role Phone Galina HOSKINS, Ryanne Donovan Primary Care Physician Encounter [facility] [place](s): 09/11/22 - 09/13/[address] [address]- Encounter Diagnosis Near syncope(Final) - 09/11/22 Discharge Disposition: A-D/C Home Attending Physician: Karrie Barker MD Admitting Physician: Juan C Gonzales MD Referring Physician: Not on Staff, Referring MD Allergies, Adverse Reactions, Alerts No Known Allergies Immunizations Given and Recorded Vaccine Date Status Refusal Reason influenza virus vaccine, inactivated 07/17/22 Robson rded influenza virus vaccine, inactivated 08/22/21 Robson rded influenza virus vaccine, inactivated 07/21/20 Robson rded influenza virus vaccine, inactivated 06/26/17 Robson rded influenza virus vaccine, inactivated 08/09/16 Robson rded [id number] 12y+ bivalent booster vax 07/17/22 Recorded SARS-CoV-2 [...] Dry Weight Start Date: 12/06/21 Status: Ordered Slippery Elm 4 capsules, 3 [...] Confirmed Active Weight loss, non-intentional Confirmed Active Results Orders for Microbiology Reports Name Date Sputum Culture w/ Gram Smear 09/12/22 Microbiology Reports TEST:Sputum Culture STATUS:Unauthenticated BODY SITE: SOURCE:EXPECT COLLECTED DATE/TIME:09/12/22 12:12 AM Sputum Culture SPECIMEN DESCRIPTION : EXPECTORATED SPUTUM SPECIAL REQUESTS : NONE Test performed at [facility], [address] [place] [address], [place], [place], Kaylyn Mims MD, Med Director, [facility] [id number] GRAM STAIN : 3+ POLYMORPHONUCLEAR LEUKOCYTES 2+ SQ.EPITHELIAL CELLS 4+ GRAM POSITIVE COCCI 3+ GRAM NEGATIVE RODS 2+ GRAM POSITIVE RODS CULTURE : 2+ HAEMOPHILUS PARAINFLUENZAE . THIS HAEMOPHILUS PARAINFLUENZAE DOES NOT PRODUCE BETA-LACTAMASE AND SHOULD BE CONSIDERED SENSITIVE TO AMPICILLIN 4+ NORMAL SO REPORT STATUS : PRELIMINARY REPORT Radiology Reports * Exam Date Time Procedure Performing Provider Status 09/11/22 5:[address] Angio Chest Adri Heredia; Au th (Verified) Notes: (CT Angio Chest) Reason For Exam: PE suspected, Intermediate prob, positive D-dimer,;Other: RESULT: CT Angio Chest EXAMINATION: CT Angio Chest INDICATION: Hx of Present Illness: Recent d c from ICU since then having episodes of AMS, BARON, vomiting, states has eipsidoes of being altered . Productive cough w blood.; Reason: Other:; PE suspected, Intermediate prob, positive D-dimer,; Clinical Question(s): Pulmonary Embolism TECHNIQUE: Spiral CTA of the chest was performed after rapid IV contrast administration without cardiac gating, triggered by an ROSALINO on the main pulmonary artery. Images are formatted in multiple planes using 2-D multiplanar and 3-D maximum intensity projection. 100 cc of Omnipaque 300 was administered intravenously. Weight-based protocol using automatic tube modulation was used to optimize exposure parameters. CTDIvol Body: 6.06 mGy, DLP Body: 276 mGy*cm. COMPARISONS: Chest x-ray 09/08/2022. ANGIOGRAPHIC FINDINGS: No pulmonary embolism to the subsegmental level. Normal caliber pulmonary arteries. No acute aortic abnormality seen on this study performed without cardiac gating. NON-ANGIOGRAPHIC FINDINGS: Fabric Lay Out Worker View Findings, Lines and Tubes: None. Trachea and Airways: Patent without evidence of tracheal or endobronchial lesion. Lungs and Pleura: The right lung is clear. There is a patchy dependent groundglass and airspace opacity in the left upper and lower lobes which is improved compared to the previous chest x-ray. This may represent resolving pneumonia. No effusion or pneumothorax. Mediastinum and salina: No mass or hematoma. No mediastinal or hilar lymphadenopathy. No esophageal abnormality. Heart: Heart is normal in size. No pericardial effusion. Chest Wall Soft Tissues: Normal. Diaphragm and upper abdomen: No significant abnormality. Bones: No acute abnormality. IMPRESSION: No evidence of pulmonary embolism. Minimal dependent airspace and groundglass opacity in left upper and lower lobe which may representresolving pneumonia. WSN: [id number] Ordering Physician: Nancy Ho Dictated By: Leonel Suazo MD Dictated Date/Time: 09/11/22 5:35 pm Reviewed By: Leonel Suazo MD Signed By: Leonel Suazo MD Signed Date/Time: 09/11/22 5:35 pm Transcribed By: MJ Transcribed Date/Time: 09/11/22 5:26 pm * Exam Date Time Procedure Performing Provider Status 09/11/22 3:57 PM Chest 2 Views Frontal and Lat Lexii Manzanares; Auth (Verified) Notes: (Chest 2 Views Frontal and Lat) Reason For Exam: Shortness of Breath RESULT: Chest 2 Views Frontal and Lat Chest 2 Views Frontal and Lat Hx of Present Illness: Recent d c from ICU since then having episodes of AMS, BARON, vomiting, stateshas eipsidoes of being altered . Productive cough w blood.; Reason: Shortness of Breath; Clinical Question(s): Pneumonia COMPARISON: Chest radiograph from 05/08/2022. FINDINGS: LINES AND TUBES: None. LUNGS AND PLEURA: Clear lungs. Normal pulmonary vascularity. No pleural effusion. No pneumothorax. HEART, MEDIASTINUM AND SALINA: Heart is normal in size. Normal mediastinal and hilar contour. BONES AND SOFT TISSUES.: No acute abnormality. Unchanged fusion of the posterolateral aspects of the right sixth and seventhribs. IMPRESSION: No acute abnormality. I have personally reviewed the images and I agree with this report. WSN: [id number] Ordering Physician: Ronald Solomon Dictated By: Abrahan Chinchilla MD Dictated Date/Time: 09/11/22 4:12 pm Reviewed By: Nancy Tavares MD Signed By: Nancy Tavares MD Signed Date/Time: 09/11/22 4:17 pm Transcribed By: MJ Transcribed Date/Time: 09/11/22 4:06 pm Vital Signs Most recent to oldest [Reference Range]: 1 2 3 Height 183 cm (09/13/22 8:27 AM) 183 cm (09/13/22 4:02 AM) 183 cm (09/13/22 12:35 AM) Weight 89.5 kg (09/12/22 4:46 AM) 86.6 kg (09/11/22 9:32 PM) 86.6 kg (09/11/22 8:14 PM) Oxygen Saturation [94-100 %] 100 % (09/13/22 8:27 AM) 98 % (09/13/22 4:02 AM) 98 % (09/13/22 12:35 AM) Pulse Rate [55-90 bpm] 78 bpm (09/13/22 8:27 AM) 74 bpm (09/13/22 4:02 AM) 84 bpm (09/13/22 12:35 AM) Body Mass Index [18.5-24.99 kg/m2] 26.73 kg/m2 *H* (09/12/22 4:46 AM) 25.86 kg/m2 *H* (09/11/22 9:32 PM) 25.86 kg/m2 *H* (09/11/22 8:14 PM) Blood Pressure [90-138/55-84 mm Hg] 143/89mm Hg *H* (09/13/22 8:27 AM) 146/72mm Hg *H* (09/13/22 4:02 AM) 160/74mm Hg *H* (09/13/22 12:35 AM) Respiratory Rate [16-30 br/min] 16 br/min (09/13/22 8:27 AM) 24 br/min (09/13/22 4:02 AM) 20 br/min (09/13/22 12:35 AM) Temperature [96.8-100.4 DegF] 97.7 DegF (09/13/22 8:27 AM) 97.7 DegF (09/13/22 4:02 AM) 99.1 DegF (09/13/22 12:35 AM) Liters per Minute 0 L/min (09/13/22 4:02 AM) 0 L/min (09/13/22 12:35 AM) Mode of Delivery (Oxygen) Room air (09/13/22 8:27 AM) Room air (09/13/22 4:02 AM) Room air (09/13/22 12:35 AM) Blood pressure sites Arm, right (09/13/22 8:27 AM) Arm, left (09/13/22 4:02 AM) Arm, left (09/13/22 12:35 AM) Temperature Route Oral (09/13/22 8:27 AM) Oral (09/13/22 4:02 AM) Oral (09/13/22 12:35 AM) Dry Weight 86.6 kg (09/11/22 9:32 PM) 84.2 kg (09/11/22 1:01 PM) Weight Obtained Via Bed scale (09/12/22 4:46 AM) Bed scale (09/11/22 8:14 PM) Standing scale (09/11/22 1:01 PM) Dry Weight Obtained Via Standing scale (09/11/22 1:01 PM) Social History Social History Type Response Smoking Status Never smoker entered on: 12/22/13 Sex Admission evaluation note * Hank Lorenzo: PERFORM Event Display: Admission Note Authored Date: [id number] Patient: ??MARY CONTRERAS ? Age:??37 Years?Sex:??Male?:??1985?? Chief Complaint/Reason for Consultation Near syncope History of Present Illness Date of service 09/11/2022. 37-year-old male with past medical history of narcolepsy, CONG on CPAP, major depression disorder, alcohol dependence comes to the emergency department for evaluation of altered mental status and syncopal episodes. He was recently discharged from the hospital after being treated for alcohol intoxication, withdrawal and sodium oxybate overdose.?? During this hospitalization continued to be intubated and monitored in the ICU.?? Patient stated that after discharge he has been having progressively worsening abdominal pain, shortness of breath nausea and vomiting.?? He states that yesterday he was at his boyfriend's house who saw him having a short period of unresponsiveness.?? He recovered quickly from that and went back home.?? Today he received his custom feed mill operator who is helping him with his divorce and who alsowitness 1 of these episodes happening.?? The adjusto writer operator was concerned and called patient's father who brought him to the ED. in the emergency department patient vital signs were significant for heart rate of 111.?? Viral panel was negative.?? Blood work showed no leukocytosis.?? Potassium of 3.4 and D-dimer of 1.05.?? proBNP was 1296.?? High sensitive troponin was 52.?? Chest x-ray showed no acute abnormalities and CTA of the chest showed no evidence of pulmonary embolism unresolving pneumonia.?? EKG showed prolonged QT.?? Admission was requested for further evaluation and management. Review of Systems ?? All other systems were reviewed and are negative. Objective Measurements?? Height: 183 cm (09/12/22) Weight: 86.6 kg (09/11/22) Dry Weight: 86.6 kg (09/11/22) Body Mass Index:??25.86 kg/m2??High (09/11/22) ? Vital Signs?? Temperature: 99.2 DegF (09/12/22 00:21:00) Temperature Route: Oral (09/12/22 00:21:00) Pulse Rate: 90 bpm (09/12/22 00:21:00) Respiratory Rate: 16 br/min (09/12/22 02:17:00) Systolic Blood Pressure: 106 mm Hg (09/12/22 02:16:00) Diastolic Blood Pressure: 59 mm Hg (09/12/22 02:16:00) Blood pressure sites: Arm, left (09/12/22 02:16:00) Mean Arterial Pressure: 75 mm Hg (09/12/22 02:16:00) Pulse Pressure: 47 mm Hg (09/12/22 02:16:00) Oxygen Saturation: 98 % (09/12/22 00:21:00) Mode of Delivery (Oxygen): Room air (09/12/22 00:21:00) FiO2: 21 % (09/11/22 22:36:00) Early Warning Score: 0 (09/12/22 02:17:43) ? Perfusion Assessment Capillary Refill: < 3 seconds (09/11/22 22:19:00) Cardiac Rhythm: Normal sinus rhythm, Sinus tachycardia (09/11/22 22:19:00) Cardiovascular: WNL except (09/11/22 22:19:00) Cardiovascular Assessment Status: Unchanged from recorder's assessment (09/11/22 18:45:00) Cardiovascular Comment: right-sided CP (09/11/22 13:01:00) Cardiovascular Symptoms: None (09/11/22 22:19:00) Heart Rhythm: Regular (09/11/22 22:19:00) Heart Sounds: S1, S2 (09/11/22 22:19:00) Nail Bed Color, Fingers: [place] (09/11/22 22:19:00) Nail Bed Color, Toes: [place] (09/11/22 22:19:00) Pacemaker: No (11/17/22 22:19:00) Skin Temperature Lower Extremities: Warm (09/11/22 22:19:00) Skin Temperature Upper Extremities: Warm (09/11/22 13:01:00) ? Pain Scores 1 - 10 Pain Scale Score: 4 (13:01) ? Ventilator Settings?? FiO2: 21 % (22:36) ? Intake/Output? 09/11 12:54 09/12 07:00 09/11 07:00 09/10 07:00 09/09 07:00 ?? 09/12 04:41 09/12 04:41 09/12 06:59 09/11 06:59 09/10 06:59 Intake ?390 ?0 ?390 ?0 ?0 Output ?0 ?0 ?0 ?0 ?0 Net Total ?390 ?0 ?390 ?0 ?0 ? Urine Count ?1 ?0 ?1 ?0 ?0 ? Precautions No Precautions documented.? Basic ADLs Ambulatory devices needed: None (09/11/22) ? Mobility & Ambulation Level Mobility & Ambulation Level Ambulatory devices needed: None (09/11/22) ?? Therapeutic Activity Therapeutic Activities/Mobility/Balance?? No qualifying data available. ? Physical Exam Constitutional: Alert, in no acute distress. Head: Normocephalic. Eyes: Pupils are equal, round and reactive to light. Extraocular muscles intact. No pallor or scleral icterus Ear, Nose and Throat: mucous membranes moist. Ears and nose - no obvious deformities Trachea midline. Neck: Supple, Full range of motion.No JVD or bruits. Respiratory:??Clear to auscultation. No wheezing or rhonchi.??No use of accessory muscles. No tactile fremitus.?? Cardiovascular:??PMI not visible. S1 S2 regular. No murmurs, rubs or gallops. Gastrointestinal:??Abdomen soft, non-tender, non-distended. Normal bowel sounds. No pulsatile mass.No hepatosplenomegaly. Genitourinary:??No costovertebral angle tenderness. Extremities: No lower extremity pitting edema. No cyanosis or clubbing. Neurologic:??AAOx3, Cranial nerves II-XII grossly intact. Speech normal, no facial droop. No focal neurological deficits. Moves all extremities spontaneously. Psychiatric: Normal mood and affect. Assessment/Plan Diagnoses Alcohol use disorder, mild, abuse ??(F10.10) Near syncope ??(R55) QT prolongation ??(R94.31) ?? QT prolongation (R94.31):??. Near syncope (R55):?? Unclear etiology, possibly due to dehydration secondary to nausea and vomiting.??EKG showed prolonged QT could also??be the cause of??her near syncopal episodes.?? Patient currently have many issues in his life??and he looks distressed.??Etiology??can??also??be an??exacerbation of narcolepsy. Patient was admitted to telemetry for observation. Will order magnesium supplementation. Avoid medications that prolong QT. Orthostatic vital signs. Will obtain serial EKGs. Neurochecks every 4 hours. Continue with IV fluids Follow-up with U tox. wicker worker and case management consult. ?? Alcohol use disorder, mild, abuse (F10.10):?? CIWA protocol. ?? Depression (F32.A): Resume home management. Currently??denies suicidal ideations. ? Narcolepsy (G47.419): Previously on armodafinil and sodium oxybate for sleep regulation Patient was continue with this medications. ?? VTE Prophylaxis:??Heparin subcutaneous. ?VTE Prophylaxis Assessment:??VTE Prophylaxis Ordered ?? Code Status:??Full code. ?Order Code Status:??Code Status Ordered ?? Discharge Planning:? Histories Allergies Allergies ?(Active and Proposed Allergies Only) NKA? (Severity: Unknown severity, Onset: Unknown) ? Past Medical History/Problem List Active Problems??(9) Abdominal pain, JOSÉ MIGUEL Asthma Fever, unknown origin, elev temp 99-100 in afternoon Gait difficullty Hypersomnia Idiopathic hypersomnia with long sleep time Rectal bleeding Thoracic Neuroblastoma, s/p resection at 8 wks of age Weight loss, non-intentional ? Past Surgical History thoracic neuroblastoma excision: 85 Hearing aid bone anchor ? Social History Alcohol Details:??Use: Occasionally . 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 Nutrition/Health Details:??Diet: Gluten free. Tobacco Details:??Use: Never smoker. ? Psychosocial History ? Family History Mother (): Alcoholism; Cancer of stomach; Depression Pat. Grandfather (): CAD - Coronary artery disease; FH: premature coronary heart disease Mat. Grandfather: Cancer of prostate ? Travel History Travel Outside [facility]: No ? Medications Home Medications Albuterol (Albuterol (Eqv-ProAir HFA) 90 mcg/inh inhalation aerosol)?2?puff(s)?Inhalation?Every 6 hours?as needed?Wheezing/Shortness of Breath Armodafinil (armodafinil 250 mg oral tablet)?1?tab(s)?250?Milligram?By Mouth?Daily?as needed?Other Baclofen (baclofen 10 mg oral tablet)?10?Milligram?1?tablet?By Mouth?Daily?as needed?Other Escitalopram (escitalopram 20 mg oral tablet)?1?tab(s)?20?Milligram?By Mouth?Daily galcanezumab (Emgality Prefilled Pen 120 mg/mL subcutaneous solution)?120?Milligram?Subcutaneous Infusion?Every 28 days Lamotrigine?50?Milligram?By Mouth?Daily Multivitamin (Multi Vitamin+)?1 tab?Daily Omeprazole (omeprazole 20 mg oral enteric coated capsule)?1?capsule?By Mouth?Daily Ondansetron (Zofran ODT 4 mg oral tablet, disintegrating)?8?Milligram?By Mouth?Every 8 hours?as needed?as needed for nausea/vomiting rimegepant (Nurtec ODT 75 mg oral tablet, disintegrating)?1?tab(s)?75?Milligram?By Mouth?Every 24 hours?as needed?as needed for migraine headache?not to exceed 75 mg in 24 hours Slippery Elm?4 capsules?3 times a day Sodium Oxybate (Xyrem 500 mg/mL oral liquid)?4.5?Milliliter?2,250?Milligram?By Mouth?2 times a day Tretinoin Topical (tretinoin 0.025% topical cream)?Topically?Daily at bedtime ? Inpatient Medications Medications (24) Active SCHEDULED: (10) Folic Acid 1 mg Tablet (Folic Acid Tablet) ??1 mg, By Mouth, Daily Heparin 5000 units/mL Inj (1 mL) (Heparin Inj) ??5,000 units 1 mL, Subcutaneous Injection, 3 times a day LamoTRIGINE 25 mg Tablet (Lamictal Tablet) ??50 mg, By Mouth, Daily Multivitamin Tablet ??1 tablet, By Mouth, Daily NaCl 0.9% Flush 3ml (NaCL 0.9% Flush) ??3 mL, IV Push, Every 8 hours Pantoprazole 40 mg EC Tablet (pantoprazole 40 mg oral delayed release tablet) ??40 mg, By Mouth, Daily Pt.'s Own Meds (Xyrem (sodium oxybate)) ??4.5g, By Mouth, Daily at bedtime Pt.'s Own Meds (Xyrem (sodium oxybate)) ??4.5g, By Mouth, Every 24 hours Pyridoxine 50 mg Tablet (Pyridoxine Tablet) ??50 mg, By Mouth, Daily Thiamine 100 mg Tablet (Thiamine Tablet) ??100 mg, By Mouth, 2 times a day CONTINUOUS: (1) Lactated Ringers (1000 mL) Cont IV 1,000 mL (Lactated Ringers 1,000 mL) ??1,000 mL, IV Infusion, 150 mL/hr PRN: (13) Acetaminophen 325 mg Tablet (Acetaminophen Tablet) ??650 mg, By Mouth, Every 4 hours Albuterol 90mcg/Inhalation Inhaler HFA (Ventolin 90 mcg Inhaler) ??180 mcg 2 puffs, Inhalation, Every 4 hours Baclofen 10 mg Tablet (baclofen 10 mg oral tablet) ??10 mg, By Mouth, Daily Dextromethorphan-Guaifenesin 20 mg-200 mg/10 mL Liqu UD (Robitussin DM Liquid) ??10 mL, By Mouth, Every 4 hours Lorazepam 1 mg Tablet (Ativan Tablet) ??1 mg, By Mouth, Every 2 hours Lorazepam 2 mg Inj Syringe (Ativan Inj) ??1 mg, IV Push Slowly, Once Lorazepam 2 mg Tablet (Ativan Tablet) ??2 mg, By Mouth, Every 2 hours Melatonin 3 mg Tablet (Melatonin Tablet) ??3 mg, By Mouth, Daily at bedtime MorPHINE 2 mg Inj Syringe (MorPHINE Inj) ??2 mg, IV Push Slowly, Every 4 hours NaCl 0.9% Flush 3ml (NaCL 0.9% Flush) ??3 mL, IV Push, Every 8 hours Polyethylene Glycol 17 Gm Powder (MiraLax Powder) ??17 Gm 1 pack/packet, By Mouth, Daily Senna 8.6 mg / Docusate 50 mg tablet (Docusate/Senna Tablet) ??1 tablet, By Mouth, 2 times a day Simethicone 80 mg Chewable Tablet (Simethicone Tablet) ??80 mg, Chew, 3 times a day ? Vaccinations and Immunoprophylaxis Haemophilus B conjugate (HbOC) vaccine: 0 Unknown (05/04/87 00:00:00) hepatitis B adult vaccine: 0.5 mL (04/13/13 08:46:00) hepatitis B pediatric vaccine: 0 Unknown (02/23/97 00:00:00) hepatitis B pediatric vaccine: 0 Unknown (01/24/97 00:00:00) influenza virus vaccine, inactivated: 0.5 Unknown (07/17/22 08:00:00) influenza virus vaccine, inactivated: 0.5 Unknown (08/22/21 08:00:00) influenza virus vaccine, inactivated: 0.5 Unknown (07/21/20 08:00:00) influenza virus vaccine, inactivated: 0.5 Unknown (06/26/17 08:00:00) influenza virus vaccine, inactivated: 0 Unknown (08/09/16 12:00:00) Measles/Mumps/Rubella Virus Vaccine: 0 Unknown (05/26/97 00:00:00) Measles/Mumps/Rubella Virus Vaccine: 0 Unknown (05/19/94 00:00:00) Measles/Mumps/Rubella Virus Vaccine: 0 Unknown (08/12/86 00:00:00) pneumococcal 23-valent vaccine: 0.5 Unknown (07/21/20 08:00:00) Poliovirus Vaccine, Inactivated: 0 Unknown (11/26/86 00:00:00) Poliovirus Vaccine, Inactivated: 0 Unknown (02/23/86 00:00:00) Poliovirus Vaccine, Inactivated: 0 Unknown (85 00:00:00) SARS-CoV-2 (COVID-19) mRNA BNT-162b2 vac: 0.3 Unknown (08/22/21 08:00:00) SARS-CoV-2 (COVID-19) mRNA BNT-162b2 vac: 0.3 Unknown (02/20/21 08:00:00) SARS-CoV-2 (COVID-19) mRNA BNT-162b2 vac: 0.3 Unknown (01/29/21 08:00:00) [id number] 12y+ bivalent booster vax: 0.3 Unknown (07/17/22 08:00:00) tetanus/diphtheria/pertussis, acel(Tdap): 0.5 mL (06/13/15 08:59:00) tetanus/diphtheria/pertussis, acel(Tdap): 0.5 mL (07/05/10 15:38:00) tetanus-diphtheria toxoids (Td): 0 Unknown (11/26/02 12:00:00) tetanus-diphtheria toxoids (Td): 0 Unknown (05/04/90 00:00:00) tetanus-diphtheria toxoids (Td): 0 Unknown (04/25/90 00:00:00) Diphth/Pertussis, Whl Cell/Tet(oldterm): 0 Unknown (05/04/87 00:00:00) Diphth/Pertussis, Whl Cell/Tet(oldterm): 0 Unknown (11/26/86 00:00:00) Diphth/Pertussis, Whl Cell/Tet(oldterm): 0 Unknown (02/23/86 00:00:00) Diphth/Pertussis, Whl Cell/Tet(oldterm): 0 Unknown (85 00:00:00) Influenza Virus Vaccine (oldterm): 0 Unknown (07/28/19 12:00:00) ? Results Recent Labs BLOOD COUNT & DIFF WBC 10.1 k/mm3 ()?? 09/11/2022 14:29 RBC 3.87 m/mm3 (Low)?? 09/11/2022 14:29 Hgb 12.5 Gm/dL (Low)?? 09/11/2022 14:29 Hct 36.9 % (Low)?? 09/11/2022 14:29 MCV 95.3 femtoliters (High)?? 09/11/2022 14:29 MCH 32.3 pg ()?? 09/11/2022 14:29 MCHC 33.9 g/dL ()?? 09/11/2022 14:29 Platelet Count 210 k/mm3 ()?? 09/11/2022 14:29 RDW-SD 43.0 femtoliters ()?? 09/11/2022 14:29 MPV 8.7 femtoliters (Low)?? 09/11/2022 14:29 Nucleated RBC (Automated) 0.0 #/100 WBC'S ()?? 09/11/2022 14:29 Abs. NRBC 0.0 k/mm3 ()?? 09/11/2022 14:29 Abs. Neut 6.9 k/mm3 ()?? 09/11/2022 14:29 Abs. Lymph 1.5 k/mm3 ()?? 09/11/2022 14:29 Abs. [place] 1.6 k/mm3 (High)?? 09/11/2022 14:29 Abs. Eo 0.0 k/mm3 ()?? 09/11/2022 14:29 Abs. Baso 0.0 k/mm3 ()?? 09/11/2022 14:29 Neut % 68.6 % ()?? 09/11/2022 14:29 Lymph % 14.8 % (Low)?? 09/11/2022 14:29 [place] % 15.9 % (High)?? 09/11/2022 14:29 Eos % 0.1 % ()?? 09/11/2022 14:29 Baso % 0.3 % ()?? 09/11/2022 14:29 Imm Gran 0.3 % ()?? 09/11/2022 14:29 Abs. Imm Gran 0.0 k/mm3 ()?? 09/11/2022 14:29 ?? CARDIAC Nt-Probnp 1296 pg/mL (High)?? 09/11/2022 14:29 High Sensitivity Troponin (HSTnT) 55 ng/L (Critical)?? 09/11/2022 18:54 ?? CHEM GENERAL Sodium 142 mmol/L ()?? 09/11/2022 14:29 Potassium 3.4 mmol/L (Low)?? 09/11/2022 14:29 Chloride 102 mmol/L ()?? 09/11/2022 14:29 Bicarbonate Level 27 mmol/L ()?? 09/11/2022 14:29 Anion Gap 13 ()?? 09/11/2022 14:29 Glucose Level 129 mg/dL (High)?? 09/11/2022 14:29 BUN 11 mg/dL ()?? 09/11/2022 14:29 Creatinine-Blood 1.0 mg/dL ()?? 09/11/2022 14:29 Estimated GFR Creatinine 96 ML/MIN/1.73 M2 ()?? 09/11/2022 14:29 Calcium 9.3 mg/dL ()?? 09/11/2022 14:29 Magnesium 1.7 mg/dL ()?? 09/11/2022 16:51 ?? COAG D-Dimer 1.05 mg/L FEU (High)?? 09/11/2022 14:29 ?? FLUID STUDIES Hold Other SPECIMEN DISCARDED AFTER 1 WEEK ()?? 09/11/2022 14:29 ?? HEME OTHER Hold Blue Top SPECIMEN DISCARDED AFTER 4 HOURS. ()?? 09/11/2022 14:29 ?? MISC. CHEMISTRY Hold Gel Top SPECIMEN DISCARDED AFTER 1 WEEK ()?? 09/11/2022 14:29 ?? UA/URINALYSIS Appear/Color, Urine YELLOW ()?? 09/11/2022 22:17 Clarity CLEAR (N)?? 09/11/2022 22:17 Specific [place], Urine <1.005 ()?? 09/11/2022 22:17 pH, Urine 7.0 ()?? 09/11/2022 22:17 Albumin, Urine 1+ (Abnormal)?? 09/11/2022 22:17 Glucose, Urine NEGATIVE (N)?? 09/11/2022 22:17 Ketones, Urine 1+ (Abnormal)?? 09/11/2022 22:17 Bilirubin, Urine 1+ (Abnormal)?? 09/11/2022 22:17 Hemoglobin, Urine TRACE (Abnormal)?? 09/11/2022 22:17 Nitrite, Urine NEGATIVE (N)?? 09/11/2022 22:17 Leukocyte, Urine NEGATIVE (N)?? 09/11/2022 22:17 Urobilinogen 4 mg/dL (Abnormal)?? 09/11/2022 22:17 WBC's, Urine NONE SEEN /HPF ()?? 09/11/2022 22:17 RBC's, Urine 3 /HPF ()?? 09/11/2022 22:17 Bacteria SLIGHT HPF (Abnormal)?? 09/11/2022 22:17 Mucus SLIGHT /LPF ()?? 09/11/2022 22:17 Hold Urine Culture Testing available 48 hours from time of collection. ()?? 09/11/2022 22:17 ?? VIROLOGY Influenza A PCR NEGATIVE ()?? 09/11/2022 14:47 Influenza B PCR NEGATIVE ()?? 09/11/2022 14:47 RSV PCR NEGATIVE ()?? 09/11/2022 14:47 COVID-19 PCR Specimen Source NASAL ()?? 09/11/2022 14:47 COVID-19 PCR Result NEGATIVE ()?? 09/11/2022 14:47 ? Abnormal Labs ?? BLOOD COUNT & DIFF ??Abs. Imm Gran ??0.0 k/mm3 () ??09/11/2022 14:29 ??Abs. [place] ??1.6 k/mm3 (High) ??09/11/2022 14:29 ??Abs. NRBC ??0.0 k/mm3 () ??09/11/2022 14:29 ??Hct ??36.9 % (Low) ??09/11/2022 14:29 ??Hgb ??12.5 Gm/dL (Low) ??09/11/2022 14:29 ??Imm Gran ??0.3 % () ??09/11/2022 14:29 ??Lymph % ??14.8 % (Low) ??09/11/2022 14:29 ??MCV ??95.3 femtoliters (High) ??09/11/2022 14:29 ??MPV ??8.7 femtoliters (Low) ??09/11/2022 14:29 ??[place] % ??15.9 % (High) ??09/11/2022 14:29 ??Nucleated RBC (Automated) ??0.0 #/100 WBC'S () ??09/11/2022 14:29 ??RBC ??3.87 m/mm3 (Low) ??09/11/2022 14:29 ??RDW-SD ??43.0 femtoliters () ??09/11/2022 14:29 ? CARDIAC ??High Sensitivity Troponin (HSTnT) ??55 ng/L (Critical) ??09/11/2022 18:54 ??Nt-Probnp ??1296 pg/mL (High) ??09/11/2022 14:29 ? CHEM GENERAL ??Estimated GFR Creatinine ??96 ML/MIN/1.73 M2 () ??09/11/2022 14:29 ??Glucose Level ??129 mg/dL (High) ??09/11/2022 14:29 ??Potassium ??3.4 mmol/L (Low) ??09/11/2022 14:29 ? COAG ??D-Dimer ??1.05 mg/L FEU (High) ??09/11/2022 14:29 ? FLUID STUDIES ??Hold Other ??SPECIMEN DISCARDED AFTER 1 WEEK () ??09/11/2022 14:29 ? HEME OTHER ??Hold Blue Top ??SPECIMEN DISCARDED AFTER 4 HOURS. () ??09/11/2022 14:29 ? MISC. CHEMISTRY ??Hold Gel Top ??SPECIMEN DISCARDED AFTER 1 WEEK () ??09/11/2022 14:29 ? UA/URINALYSIS ??Albumin, Urine ??1+ (Abnormal) ??09/11/2022 22:17 ??Appear/Color, Urine ??YELLOW () ??09/11/2022 22:17 ??Bacteria ??SLIGHT HPF (Abnormal) ??09/11/2022 22:17 ??Bilirubin, Urine ??1+ (Abnormal) ??09/11/2022 22:17 ??Clarity ??CLEAR (N) ??09/11/2022 22:17 ??Glucose, Urine ??NEGATIVE (N) ??09/11/2022 22:17 ??Hemoglobin, Urine ??TRACE (Abnormal) ??09/11/2022 22:17 ??Hold Urine Culture ??Testing available 48 hours from time of collection. () ??09/11/2022 22:17 ??Ketones, Urine ??1+ (Abnormal) ??09/11/2022 22:17 ??Leukocyte, Urine ??NEGATIVE (N) ??09/11/2022 22:17 ??Mucus ??SLIGHT /LPF () ??09/11/2022 22:17 ??Nitrite, Urine ??NEGATIVE (N) ??09/11/2022 22:17 ??Specific Hassell, Urine ??<1.005 () ??09/11/2022 22:17 ??Urobilinogen ??4 mg/dL (Abnormal) ??09/11/2022 22:17 ? VIROLOGY ??COVID-19 PCR Specimen Source ??NASAL () ??09/11/2022 14:47 ??COVID-19 PCR Result ??NEGATIVE () ??09/11/2022 14:47 ??Influenza A PCR ??NEGATIVE () ??09/11/2022 14:47 ??Influenza B PCR ??NEGATIVE () ??09/11/2022 14:47 ??RSV PCR ??NEGATIVE () ??09/11/2022 14:47 ? Note: Critical results are displayed in red. ? Blood Glucose Trend Glucose Level:??129 mg/dL??High (09/11/22 14:29:00) ? Coagulation Profile D-Dimer:??1.05 mg/L FEU??High (14:29) ?? LFT?? No qualifying data available. ?? Urinalysis Albumin, Urine: 1+ Abnormal (22:17) Appear/Color, Urine: YELLOW (22:17) Bacteria: SLIGHT Abnormal (22:17) Bilirubin, Urine: 1+ Abnormal (22:17) Clarity: CLEAR (22:17) Glucose, Urine: NEGATIVE (22:17) Hemoglobin, Urine: TRACE Abnormal (22:17) Hold Urine Culture: Testing available 48 hours from time of collection. (22:17) Ketones, Urine: 1+ Abnormal (22:17) Leukocyte, Urine: NEGATIVE (22:17) Mucus: SLIGHT (22:17) Nitrite, Urine: NEGATIVE (22:17) pH, Urine: 7 (22:17) RBC's, Urine: 3 /HPF (22:17) Specific Hassell, Urine: <1.005 (22:17) Urobilinogen: 4 mg/dL Abnormal (22:17) WBC's, Urine: NONE SEEN (22:17) ?? Microbiology ?? COVID-19, RSV, and Flu A/B, Rapid PCR?? Completed?? Source: Nasal Body Site: Nose Collected Dt/Tm: 09/11/2022 14:41 Last Updated Dt/Tm: 09/11/2022 15:36 ? Cardiology Labs Nt-Probnp:??1296 pg/mL??High (09/11/22 14:29:00) High Sensitivity Troponin (HSTnT):??55 ng/L??Critical (09/11/22 18:54:00) High Sensitivity Troponin (HSTnT):??52 ng/L??High (09/11/22 16:51:00) High Sensitivity Troponin (HSTnT):??52 ng/L??High (09/11/22 14:29:00) ?? Blood Gases?? No qualifying data available. ?? EKG study * Event Display: ECG 12-Lead Authored Date: Please click on pdf link to open report * Event Display: ECG 12-Lead Authored Date: Ventricular Rate: 107 BPM Atrial Rate: 107 BPM P-R Interval: 126 ms QRS Duration: 74 ms Q-T Interval: 422 ms QTC Calculation(Bazett): 563 ms P Mchenry: 62 degrees R Mchenry: 3 degrees T Mchenry: 36 degrees Sinus tachycardia Prolonged QT Abnormal ECG When compared with ECG of 09-SEP-2022 08:59, Premature supraventricular complexes are no longer Present Confirmed by SAMIRA TORRES ([id number]) on 09/11/2022 5:32:54 PM [place] * Batool Baron RN: PERFORM, SIGN, VERIFY, MODIFY, SIGN Event Display: Progress Note [facility] Authored Date: [id number] Patient: MARY CONTRERAS Age: 37 years Sex: Male : 1985 Associated Diagnoses: None Author: Batool Baron RN Findings Problem Related to Alteration in Respiratory Function (new) : Alteration in Respiratory Function/new 09/12/2022 16:00 EST Alteration in Resp Status Related to Pneumonia Goals & Outcomes, Respiratory Pt will maintain/resume baseline physical assessment, Pt will notdevelop complications r/t mechanical ventilation, Pt will maintain adequate nutritional intake, Pt will maintain/resume normal fluid/electrolyte balance, Pt will not develop complications r/t immobility, Pt will demonstrate proper technique w/self care procedures Interventions, Respiratory Assess for and report S&S of respiratory distress, Monitor sputum color & consistency. Report changes to MD MAIER Goals/Interventions, Respiratory Yes Respiratory, Problem Start 09/11/2022 23:37 Reviewed Plan with, Respiratory Patient Patient Progression, Respiratory Patient progressing according to plan . Nursing Data IV Lines. : IV Lines. 09/12/2022 22:37 EST Left Antecubital 20 gauge Peripheral IV Activity: Assess Peripheral IV Assess Compare Touch: A/C/T Done, no complications Peripheral IV Site Assessment: Clean, dry and intact, Flushes Well Peripheral IV Dressing: Clean, dry and intact, Semi-permeable membrane . Vital Signs : VITAL SIGNS SECTION 09/13/2022 4:02 EST Temperature 97.7 DegF Temperature Route Oral Pulse Rate 74 bpm Respiratory Rate 24 br/min Systolic Blood Pressure 146 mm Hg H Diastolic Blood Pressure 72 mm Hg Blood pressure sites Arm, left Mean Arterial Pressure 97 mm Hg Pulse Pressure 74 mm Hg Oxygen Saturation 98 % Liters per Minute 0 L/min Mode of Delivery (Oxygen) Room air 09/13/2022 0:35 EST Temperature 99.1 DegF Temperature Route Oral Pulse Rate 84 bpm Respiratory Rate 20 br/min Systolic Blood Pressure 160 mm Hg H Diastolic Blood Pressure 74 mm Hg Blood pressure sites Arm, left Mean Arterial Pressure 103 mm Hg Pulse Pressure 86 mm Hg Oxygen Saturation 98 % Liters per Minute 0 L/min Mode of Delivery (Oxygen) Room air 09/12/2022 19:39 EST Temperature 98.5 DegF Temperature Route Oral Pulse Rate 86 bpm Respiratory Rate 18 br/min Systolic Blood Pressure 152 mm Hg H Diastolic Blood Pressure 94 mm Hg H Blood pressure sites Arm, right Mean Arterial Pressure 113 mm Hg Pulse Pressure 58 mm Hg Oxygen Saturation 100 % Mode of Delivery (Oxygen) Room air . Narrative/Incidental Handoff report received from previous RN Ana. care assumed at 1930. pt A&O x 4. denies pain. sinus rhythm on tele with HR in 70's to 80's. Lungs cta bilaterally on room air. denies any dyspnea at rest or on exertion. RT applied CPAP which pt tolerated and left in place over night. abdomen soft and non tender, + BS. CIWAS 2 and 1 this shift. no intervention for alcohol withdrawal required this shift. falls prevention protocol in place. bed in low/locked position. call rome within reach. plan: continue with current plan of care. . * Froy VERGARA, Ana Burton: PERFORM, SIGN, VERIFY Event Display: Progress Note Hospital Authored Date: Patient: MARY CONTRERAS Age: 37 years Sex: Male : 1985 Associated Diagnoses: None Author: Froy VERGARA, Ana Burton Findings Narrative/Incidental Patient vss, low temp 99.6, resolved on own, lungs clear, sats 98% RA, no sob. tele: nsr, no chest pain, no edema, independent to brm, gait steady, IV luids dc'd, denied pain, voiding in brm, tolerated diet well. abd soft, non-tender, no right upper quadrant today. A+O, ciwa #2, no coverage needed.Patient stable at this time. patient stated that he had 'signed up for an at home rehab program. Discussed support systems. stated that he was confident that he had alot of suppport at home and would be ready to dc home when time came. Paatient stable at this time. continue to monitor.. Discharge Information Case Management Discharge Plan : Case Management Discharge Plan Data 09/10/2022 12:49 EST Discharge Level of Care at Discharge Home/Snf/Foster Care * Mj ROSARIO, Karrie Atwood: PERFORM Event Display: Progress Note Hospital Authored Date: [id number] Patient: ??MARY CONTRERAS ? Age:??37 Years?Sex:??Male?:??1985?? Subjective Patient was seen and examined at bedside. Was admitted overnight with near syncopal episode. Denied any recurrence of his symptoms Denied active complaints of??dizziness, palpitation, lightheadedness,??chest pain or??shortness of breath. Review of Systems As above otherwise negative Objective Measurements?? Height: 183 cm (09/12/22) Weight: 89.5 kg (09/12/22) Dry Weight: 86.6 kg (09/11/22) Body Mass Index:??26.73 kg/m2??High (09/12/22) ? Vital Signs?? Temperature: 99.6 DegF (09/12/22 07:41:00) Temperature Route: Oral (09/12/22 07:41:00) Pulse Rate: 84 bpm (09/12/22 07:41:00) Respiratory Rate: 18 br/min (09/12/22 07:41:00) Systolic Blood Pressure:??152 mm Hg??High (09/12/22 07:41:00) Diastolic Blood Pressure:??99 mm Hg??High (09/12/22 07:41:00) Blood pressure sites: Arm, right (09/12/22 04:46:00) Mean Arterial Pressure: 117 mm Hg (09/12/22 07:41:00) Pulse Pressure: 53 mm Hg (09/12/22 07:41:00) Oxygen Saturation: 98 % (09/12/22 07:41:00) Mode of Delivery (Oxygen): Room air (09/12/22 04:46:00) FiO2: 21 % (09/12/22 08:46:00) Early Warning Score: 0 (09/12/22 10:47:59) ? Intake/Output? 09/11 12:54 09/12 07:00 09/11 07:00 09/10 07:00 09/09 07:00 ?? 09/12 14:32 09/12 14:32 09/12 06:59 09/11 06:59 09/10 06:59 Intake ?790 ?400 ?390 ?0 ?0 Output ?0 ?0 ?0 ?0 ?0 Net Total ?790 ?400 ?390 ?0 ?0 ? Urine Count ?1 ?0 ?1 ?0 ?0 ? Physical Exam Constitutional: Alert, in no acute distress. Head: Normocephalic. Eyes: Pupils are equal, round and reactive to light. Extraocular muscles intact. No pallor or scleral icterus Ear, Nose and Throat: mucous membranes moist. Ears and nose - no obvious deformities Trachea midline. Neck: Supple, Full range of motion.No JVD or bruits. Respiratory:??Clear to auscultation. No wheezing or rhonchi.??No use of accessory muscles. No tactile fremitus.?? Cardiovascular:??PMI not visible. S1 S2 regular. No murmurs, rubs or gallops. Gastrointestinal:??Abdomen soft, non-tender, non-distended. Normal bowel sounds. No pulsatile mass.No hepatosplenomegaly. Genitourinary:??No costovertebral angle tenderness. Extremities: No lower extremity pitting edema. No cyanosis or clubbing. Neurologic:??AAOx3, Cranial nerves II-XII grossly intact. Speech normal, no facial droop. No focal neurological deficits. Moves all extremities spontaneously. Psychiatric: Normal mood and affect. _ Inpatient Medications Medications (24) Active SCHEDULED: (10) Folic Acid 1 mg Tablet (Folic Acid Tablet) ??1 mg, By Mouth, Daily Heparin 5000 units/mL Inj (1 mL) (Heparin Inj) ??5,000 units 1 mL, Subcutaneous Injection, 3 times a day LamoTRIGINE 25 mg Tablet (Lamictal Tablet) ??50 mg, By Mouth, Daily Multivitamin Tablet ??1 tablet, By Mouth, Daily NaCl 0.9% Flush 3ml (NaCL 0.9% Flush) ??3 mL, IV Push, Every 8 hours Pantoprazole 40 mg EC Tablet (pantoprazole 40 mg oral delayed release tablet) ??40 mg, By Mouth, Daily Pt.'s Own Meds (Xyrem (sodium oxybate)) ??4.5g, By Mouth, Daily at bedtime Pt.'s Own Meds (Xyrem (sodium oxybate)) ??4.5g, By Mouth, Every 24 hours Pyridoxine 50 mg Tablet (Pyridoxine Tablet) ??50 mg, By Mouth, Daily Thiamine 100 mg Tablet (Thiamine Tablet) ??100 mg, By Mouth, 2 times a day CONTINUOUS: (1) Lactated Ringers (1000 mL) Cont IV 1,000 mL (Lactated Ringers 1,000 mL) ??1,000 mL, IV Infusion, 150 mL/hr PRN: (13) Acetaminophen 325 mg Tablet (Acetaminophen Tablet) ??650 mg, By Mouth, Every 4 hours Albuterol 90mcg/Inhalation Inhaler HFA (Ventolin 90 mcg Inhaler) ??180 mcg 2 puffs, Inhalation, Every 4 hours Baclofen 10 mg Tablet (baclofen 10 mg oral tablet) ??10 mg, By Mouth, Daily Dextromethorphan-Guaifenesin 20 mg-200 mg/10 mL Liqu UD (Robitussin DM Liquid) ??10 mL, By Mouth, Every 4 hours Lorazepam 1 mg Tablet (Ativan Tablet) ??1 mg, By Mouth, Every 2 hours Lorazepam 2 mg Inj Syringe (Ativan Inj) ??1 mg, IV Push Slowly, Once Lorazepam 2 mg Tablet (Ativan Tablet) ??2 mg, By Mouth, Every 2 hours Melatonin 3 mg Tablet (Melatonin Tablet) ??3 mg, By Mouth, Daily at bedtime MorPHINE 2 mg Inj Syringe (MorPHINE Inj) ??2 mg, IV Push Slowly, Every 4 hours NaCl 0.9% Flush 3ml (NaCL 0.9% Flush) ??3 mL, IV Push, Every 8 hours Polyethylene Glycol 17 Gm Powder (MiraLax Powder) ??17 Gm 1 pack/packet, By Mouth, Daily Senna 8.6 mg / Docusate 50 mg tablet (Docusate/Senna Tablet) ??1 tablet, By Mouth, 2 times a day Simethicone 80 mg Chewable Tablet (Simethicone Tablet) ??80 mg, Chew, 3 times a day ? Results Recent Labs BLOOD COUNT & DIFF WBC 6.1 k/mm3 ()?? 09/12/2022 05:34 RBC 3.71 m/mm3 (Low)?? 09/12/2022 05:34 Hgb 11.8 Gm/dL (Low)?? 09/12/2022 05:34 Hct 36.5 % (Low)?? 09/12/2022 05:34 MCV 98.4 femtoliters (High)?? 09/12/2022 05:34 MCH 31.8 pg ()?? 09/12/2022 05:34 MCHC 32.3 g/dL (Low)?? 09/12/2022 05:34 Platelet Count 198 k/mm3 ()?? 09/12/2022 05:34 RDW-SD 46.9 femtoliters ()?? 09/12/2022 05:34 MPV 8.8 femtoliters (Low)?? 09/12/2022 05:34 Nucleated RBC (Automated) 0.0 #/100 WBC'S ()?? 09/12/2022 05:34 Abs. NRBC 0.0 k/mm3 ()?? 09/12/2022 05:34 Abs. Neut 3.4 k/mm3 ()?? 09/12/2022 05:34 Abs. Lymph 1.8 k/mm3 ()?? 09/12/2022 05:34 Abs. [place] 0.8 k/mm3 ()?? 09/12/2022 05:34 Abs. Eo 0.1 k/mm3 ()?? 09/12/2022 05:34 Abs. Baso 0.0 k/mm3 ()?? 09/12/2022 05:34 Neut % 55.3 % ()?? 09/12/2022 05:34 Lymph % 29.2 % ()?? 09/12/2022 05:34 [place] % 13.7 % (High)?? 09/12/2022 05:34 Eos % 0.8 % ()?? 09/12/2022 05:34 Baso % 0.5 % ()?? 09/12/2022 05:34 Imm Gran 0.5 % ()?? 09/12/2022 05:34 Abs. Imm Gran 0.0 k/mm3 ()?? 09/12/2022 05:34 ?? CARDIAC Nt-Probnp 1296 pg/mL (High)?? 09/11/2022 14:29 High Sensitivity Troponin (HSTnT) 55 ng/L (Critical)?? 09/11/2022 18:54 ?? CHEM GENERAL Sodium 139 mmol/L ()?? 09/12/2022 05:34 Potassium 3.4 mmol/L (Low)?? 09/12/2022 05:34 Chloride 100 mmol/L ()?? 09/12/2022 05:34 Bicarbonate Level 30 mmol/L (High)?? 09/12/2022 05:34 Anion Gap 9 ()?? 09/12/2022 05:34 Glucose Level 179 mg/dL (High)?? 09/12/2022 05:34 BUN 8 mg/dL ()?? 09/12/2022 05:34 Creatinine-Blood 0.9 mg/dL ()?? 09/12/2022 05:34 Estimated GFR Creatinine 109 ML/MIN/1.73 M2 ()?? 09/12/2022 05:34 Calcium 8.5 mg/dL (Low)?? 09/12/2022 05:34 Phosphorus 1.8 mg/dL (Low)?? 09/12/2022 05:34 Magnesium 2.5 mg/dL (High)?? 09/12/2022 05:34 Protein, Total 5.9 Gm/dL (Low)?? 09/12/2022 05:34 Albumin 3.5 Gm/dL ()?? 09/12/2022 05:34 ?? COAG D-Dimer 1.05 mg/L FEU (High)?? 09/11/2022 14:29 ?? FLUID STUDIES Hold Other SPECIMEN DISCARDED AFTER 1 WEEK ()?? 09/11/2022 14:29 ?? HEME OTHER Hold Blue Top SPECIMEN DISCARDED AFTER 4 HOURS. ()?? 09/11/2022 14:29 ?? MISC. CHEMISTRY Hold Gel Top SPECIMEN DISCARDED AFTER 1 WEEK ()?? 09/11/2022 14:29 ?? UA/URINALYSIS Appear/Color, Urine YELLOW ()?? 09/11/2022 22:17 Clarity CLEAR (N)?? 09/11/2022 22:17 Specific Hassell, Urine <1.005 ()?? 09/11/2022 22:17 pH, Urine 7.0 ()?? 09/11/2022 22:17 Albumin, Urine 1+ (Abnormal)?? 09/11/2022 22:17 Glucose, Urine NEGATIVE (N)?? 09/11/2022 22:17 Ketones, Urine 1+ (Abnormal)?? 09/11/2022 22:17 Bilirubin, Urine 1+ (Abnormal)?? 09/11/2022 22:17 Hemoglobin, Urine TRACE (Abnormal)?? 09/11/2022 22:17 Nitrite, Urine NEGATIVE (N)?? 09/11/2022 22:17 Leukocyte, Urine NEGATIVE (N)?? 09/11/2022 22:17 Urobilinogen 4 mg/dL (Abnormal)?? 09/11/2022 22:17 WBC's, Urine NONE SEEN /HPF ()?? 09/11/2022 22:17 RBC's, Urine 3 /HPF ()?? 09/11/2022 22:17 Bacteria SLIGHT HPF (Abnormal)?? 09/11/2022 22:17 Mucus SLIGHT /LPF ()?? 09/11/2022 22:17 Hold Urine Culture Testing available 48 hours from time of collection. ()?? 09/11/2022 22:17 ?? VIROLOGY Influenza A PCR NEGATIVE ()?? 09/11/2022 14:47 Influenza B PCR NEGATIVE ()?? 09/11/2022 14:47 RSV PCR NEGATIVE ()?? 09/11/2022 14:47 COVID-19 PCR Specimen Source NASAL ()?? 09/11/2022 14:47 COVID-19 PCR Result NEGATIVE ()?? 09/11/2022 14:47 ? Assessment/Plan Diagnoses Alcohol use disorder, mild, abuse ??(F10.10) Near syncope ??(R55) QT prolongation ??(R94.31) ?? QT prolongation (R94.31):??. Near syncope (R55):?? Unclear etiology, possibly due to dehydration secondary to nausea and vomiting.?? EKG showed prolonged QT could also??be the cause of??her near syncopal episodes.?? Patient currently have many??social issues,??he is in the middle of??harsh divorce??and 6-year-old custody. Could be just exacerbation of??narcolepsy. Patient was admitted to telemetry for observation. Magnesium supplementations Avoid QT prolonging meds Keep monitoring of??electrolytes, keep magnesium more than 2??and potassium more than 4. Follow-up with U tox. Serial EKG wicker worker and case management consult. ?? Alcohol use disorder, mild, abuse (F10.10):?? CIWA protocol. ?? Depression (F32.A): Resume home management. Currently??denies suicidal ideations. ? Narcolepsy (G47.419): Previously on armodafinil and sodium oxybate for sleep regulation Patient was continue with this medications. ?? VTE Prophylaxis:??Heparin subcutaneous. ?VTE Prophylaxis Assessment:??VTE Prophylaxis Ordered ?? Code Status:??Full code. ?Order Code Status:??Code Status Ordered ?? Discharge Planning:? Note * Padmini Krishna RN: PERFORM Event Display: Discharge/Transfer Note Hospital Authored Date: [id number] Nursing Discharge Note Entered On: 09/13/2022 13:24 EST Performed On: 09/13/2022 13:23 EST by Padmini Krishna RN Nursing Discharge Note 2 Discharge Time : 09/13/2022 13:20 EST Discharge Level of Care at Discharge : Home/Snf/Foster Care Patient Left Unit Via : Wheelchair Patient Accompanied Off Unit with : Responsible adult DC Instructions Provided & Signed by Pt : Yes Patient Understands D/C Instructions : Yes Patient Instructions Discharge Signed : Yes Did Pt have Specialty Bed or Wound Vac : No Padmini Krishna RN - 09/13/2022 13:23 EST * Karrie Barker MD: PERFORM Event Display: Discharge/Transfer Note Hospital Authored Date: [id number] Patient: ??CONTRERAS, MARY ? Age:??37 Years?Sex:??Male?:??1985?? Patient Information [place] [facility] [place] Care Physician: Ryanne Mojica NP Admit Date/Time: 09/11/22 12:54 Discharge Disposition Discharge Disposition: ?? Discharge Diagnosis Alcohol use disorder, mild, abuse (F10.10) Near syncope (R55) QT prolongation (R94.31) ?? _ Discharge Medications Albuterol (Albuterol (Eqv-ProAir HFA) 90 mcg/inh inhalation aerosol)?2?puff(s)?Inhalation?Every 6 hours?as needed?Wheezing/Shortness of Breath Armodafinil (armodafinil 250 mg oral tablet)?1?tab(s)?250?Milligram?By Mouth?Daily?as needed?Other Baclofen (baclofen 10 mg oral tablet)?10?Milligram?1?tablet?By Mouth?Daily?as needed?Other Escitalopram (escitalopram 20 mg oral tablet)?1?tab(s)?20?Milligram?By Mouth?Daily galcanezumab (Emgality Prefilled Pen 120 mg/mL subcutaneous solution)?120?Milligram?Subcutaneous Infusion?Every 28 days Lamotrigine?50?Milligram?By Mouth?Daily Multivitamin (Multi Vitamin+)?1 tab?Daily Omeprazole (omeprazole 20 mg oral enteric coated capsule)?1?capsule?By Mouth?Daily Ondansetron (Zofran ODT 4 mg oral tablet, disintegrating)?8?Milligram?By Mouth?Every 8 hours?as needed?as needed for nausea/vomiting rimegepant (Nurtec ODT 75 mg oral tablet, disintegrating)?1?tab(s)?75?Milligram?By Mouth?Every 24 hours?as needed?as needed for migraine headache?not to exceed 75 mg in 24 hours [place]?4 capsules?3 times a day Sodium Oxybate (Xyrem 500 mg/mL oral liquid)?4.5?Milliliter?2,250?Milligram?By Mouth?2 times a day Tretinoin Topical (tretinoin 0.025% topical cream)?Topically?Daily at bedtime ? Allergies Allergies ?(Active and Proposed Allergies Only) NKA? (Severity: Unknown severity, Onset: Unknown) ? Future Appointments Thursday 2:00 PM EST ?? With: Drew HOSKINS, Kaylyn Ansari Where: [facility] [address] [place] [address] Drive [address] [place] [address]- Hospital Course 37-year-old male with past medical history of narcolepsy, CONG on CPAP, major depression disorder, alcohol dependence comes to the emergency department for evaluation of altered mental status and syncopal episodes. in the emergency department patient vital signs were significant for heart rate of 111.?? Viral panel was negative.?? Blood work showed no leukocytosis.?? Potassium of 3.4 and D-dimer of 1.05.?? proBNP was 1296.?? High sensitive troponin was 52.?? Chest x- ray showed no acute abnormalities and CTA of the chest showed no evidence of pulmonary embolism nonresolving pneumonia.?? EKG showed prolonged QT. ??Patient was then admitted to the medical floor for further management. ??He was placed on telemetry.?? I did start on CIWA protocol??given recent alcohol use.?? He remained hemodynamically stable throughout the hospital stay without??any??abnormal??telemetry rhythm??abnormalities.?? Patient underwent a repeat??EKG which showed??improving??QTC??which was calculated at 493??down from 563 previous admission.?? No recurrence of her symptoms??throughout the hospital stay,??reported that he is feeling better and back to baseline.?? He also reported that he??is got all the resources including in-house rehab. ??Therefore, the patient will be discharged in stable condition??with close follow-up with her primary care physician. Objective Assessment and Plan Diagnoses Alcohol use disorder, mild, abuse ??(F10.10) Near syncope ??(R55) QT prolongation ??(R94.31) ?? QT prolongation (R94.31):??. Near syncope (R55):?? Unclear etiology, possibly due to dehydration secondary to nausea and vomiting.??EKG showed prolonged QT could also??be the cause of??her near syncopal episodes.?? Patient currently have many issues in his life??and he looks distressed.??Etiology??can??also??be an??exacerbation of narcolepsy. Patient was admitted to telemetry for observation. Will order magnesium supplementation. Avoid medications that prolong QT. Orthostatic vital signs. Will obtain serial EKGs. Neurochecks every 4 hours. Continue with IV fluids Follow-up with U tox. wicker worker and case management consult. ?? Alcohol use disorder, mild, abuse (F10.10):?? CIWA protocol. ?? Depression (F32.A): Resume home management. Currently??denies suicidal ideations. ? Narcolepsy (G47.419): Previously on armodafinil and sodium oxybate for sleep regulation Patient was continue with this medications. ?? VTE Prophylaxis:??Heparin subcutaneous. ?VTE Prophylaxis Assessment:??VTE Prophylaxis Ordered ?? Code Status:??Full code. ?Order Code Status:??Code Status Ordered ? Measurements?? Height: 183 cm (09/13/22) Weight: 89.5 kg (09/12/22) Dry Weight: 86.6 kg (09/11/22) Body Mass Index:??26.73 kg/m2??High (09/12/22) ? Vital Signs?? Temperature: 97.7 DegF (09/13/22 08:27:00) Temperature Route: Oral (09/13/22 08:27:00) Pulse Rate: 78 bpm (09/13/22 08:27:00) Respiratory Rate: 16 br/min (09/13/22 08:27:00) Systolic Blood Pressure:??143 mm Hg??High (09/13/22 08:27:00) Diastolic Blood Pressure:??89 mm Hg??High (09/13/22 08:27:00) Blood pressure sites: Arm, right (09/13/22::00) Mean Arterial Pressure: 107 mm Hg (09/13/22 08:27:00) Pulse Pressure: 54 mm Hg (09/13/22 08:27:00) Oxygen Saturation: 100 % (09/13/22 08:27:00) Liters per Minute: 0 L/min (09/13/22 04:02:00) Mode of Delivery (Oxygen): Room air (09/13/22 08:27:00) FiO2: 21 % (09/13/22 02:05:00) Early Warning Score: 2 (09/13/22 08:27:38) ? . Physical Exam Constitutional: Alert, in no acute distress. Head: Normocephalic. Eyes: Pupils are equal, round and reactive to light. Extraocular muscles intact. No pallor or scleral icterus Ear, Nose and Throat: mucous membranes moist. Ears and nose - no obvious deformities Trachea midline. Neck: Supple, Full range of motion.No JVD or bruits. Respiratory:??Clear to auscultation. No wheezing or rhonchi.??No use of accessory muscles. No tactile fremitus.?? Cardiovascular:??PMI not visible. S1 S2 regular. No murmurs, rubs or gallops. Gastrointestinal:??Abdomen soft, non-tender, non-distended. Normal bowel sounds. No pulsatile mass.No hepatosplenomegaly. Genitourinary:??No costovertebral angle tenderness. Extremities: No lower extremity pitting edema. No cyanosis or clubbing. Neurologic:??AAOx3, Cranial nerves II-XII grossly intact. Speech normal, no facial droop. No focal neurological deficits. Moves all extremities spontaneously. Psychiatric: Normal mood and affect. Pending Results Add On Lab Order ordered on 09/11/2022 Add On Lab Order ordered on 09/11/2022 Add On Lab Order ordered on 09/12/2022 Amphetamine Urine Screen ordered on 09/12/2022 Cannabinoid Urine Screen ordered on 09/12/2022 Cocaine Urine Screen ordered on 09/12/2022 Opiate Screen Urine ordered on 09/12/2022 Sputum Culture w/ Gram Smear ordered on 09/12/2022 Follow-Up Appointments Added Follow Up ?Time Frame ?Comments Galina HOSKINS, Ryanne Donovan Patient Instructions you were admitted with near syncopal attack. all the work up has been negative. you should follow up with your primary care physician within the next 1-2 weeks ?? Post Discharge Care Discharge ?09/13/22 11:36:00 EST Home Health Face to Face ^HomeHealthFTF Results Discharge Labs BLOOD COUNT & DIFF WBC 6.1 k/mm3 ()?? 09/12/2022 05:34 RBC 3.71 m/mm3 (Low)?? 09/12/2022 05:34 Hgb 11.8 Gm/dL (Low)?? 09/12/2022 05:34 Hct 36.5 % (Low)?? 09/12/2022 05:34 MCV 98.4 femtoliters (High)?? 09/12/2022 05:34 MCH 31.8 pg ()?? 09/12/2022 05:34 MCHC 32.3 g/dL (Low)?? 09/12/2022 05:34 Platelet Count 198 k/mm3 ()?? 09/12/2022 05:34 RDW-SD 46.9 femtoliters ()?? 09/12/2022 05:34 MPV 8.8 femtoliters (Low)?? 09/12/2022 05:34 Nucleated RBC (Automated) 0.0 #/100 WBC'S ()?? 09/12/2022 05:34 Abs. NRBC 0.0 k/mm3 ()?? 09/12/2022 05:34 Abs. Neut 3.4 k/mm3 ()?? 09/12/2022 05:34 Abs. Lymph 1.8 k/mm3 ()?? 09/12/2022 05:34 Abs. [place] 0.8 k/mm3 ()?? 09/12/2022 05:34 Abs. Eo 0.1 k/mm3 ()?? 09/12/2022 05:34 Abs. Baso 0.0 k/mm3 ()?? 09/12/2022 05:34 Neut % 55.3 % ()?? 09/12/2022 05:34 Lymph % 29.2 % ()?? 09/12/2022 05:34 [place] % 13.7 % (High)?? 09/12/2022 05:34 Eos % 0.8 % ()?? 09/12/2022 05:34 Baso % 0.5 % ()?? 09/12/2022 05:34 Imm Gran 0.5 % ()?? 09/12/2022 05:34 Abs. Imm Gran 0.0 k/mm3 ()?? 09/12/2022 05:34 ?? CARDIAC Nt-Probnp 1296 pg/mL (High)?? 09/11/2022 14:29 High Sensitivity Troponin (HSTnT) 55 ng/L (Critical)?? 09/11/2022 18:54 ?? CHEM GENERAL Sodium 139 mmol/L ()?? 09/12/2022 05:34 Potassium 3.4 mmol/L (Low)?? 09/12/2022 05:34 Chloride 100 mmol/L ()?? 09/12/2022 05:34 Bicarbonate Level 30 mmol/L (High)?? 09/12/2022 05:34 Anion Gap 9 ()?? 09/12/2022 05:34 Glucose Level 179 mg/dL (High)?? 09/12/2022 05:34 BUN 8 mg/dL ()?? 09/12/2022 05:34 Creatinine-Blood 0.9 mg/dL ()?? 09/12/2022 05:34 Estimated GFR Creatinine 109 ML/MIN/1.73 M2 ()?? 09/12/2022 05:34 Calcium 8.5 mg/dL (Low)?? 09/12/2022 05:34 Phosphorus 1.8 mg/dL (Low)?? 09/12/2022 05:34 Magnesium 2.5 mg/dL (High)?? 09/12/2022 05:34 Protein, Total 5.9 Gm/dL (Low)?? 09/12/2022 05:34 Albumin 3.5 Gm/dL ()?? 09/12/2022 05:34 ?? COAG D-Dimer 1.05 mg/L FEU (High)?? 09/11/2022 14:29 ? FLUID STUDIES Hold Other SPECIMEN DISCARDED AFTER 1 WEEK ()?? 09/11/2022 14:29 ? HEME OTHER Hold Blue Top SPECIMEN DISCARDED AFTER 4 HOURS. ()?? 09/11/2022 14:29 ? MISC. CHEMISTRY Hold Gel Top SPECIMEN DISCARDED AFTER 1 WEEK ()?? 09/11/2022 14:29 ? UA/URINALYSIS Appear/Color, Urine YELLOW ()?? 09/11/2022 22:17 Clarity CLEAR (N)?? 09/11/2022 22:17 Specific Hassell, Urine <1.005 ()?? 09/11/2022 22:17 pH, Urine 7.0 ()?? 09/11/2022 22:17 Albumin, Urine 1+ (Abnormal)?? 09/11/2022 22:17 Glucose, Urine NEGATIVE (N)?? 09/11/2022 22:17 Ketones, Urine 1+ (Abnormal)?? 09/11/2022 22:17 Bilirubin, Urine 1+ (Abnormal)?? 09/11/2022 22:17 Hemoglobin, Urine TRACE (Abnormal)?? 09/11/2022 22:17 Nitrite, Urine NEGATIVE (N)?? 09/11/2022 22:17 Leukocyte, Urine NEGATIVE (N)?? 09/11/2022 22:17 Urobilinogen 4 mg/dL (Abnormal)?? 09/11/2022 22:17 WBC's, Urine NONE SEEN /HPF ()?? 09/11/2022 22:17 RBC's, Urine 3 /HPF ()?? 09/11/2022 22:17 Bacteria SLIGHT HPF (Abnormal)?? 09/11/2022 22:17 Mucus SLIGHT /LPF ()?? 09/11/2022 22:17 Hold Urine Culture Testing available 48 hours from time of collection. ()?? 09/11/2022 22:17 ? VIROLOGY Influenza A PCR NEGATIVE ()?? 09/11/2022 14:47 Influenza B PCR NEGATIVE ()?? 09/11/2022 14:47 RSV PCR NEGATIVE ()?? 09/11/2022 14:47 COVID-19 PCR Specimen Source NASAL ()?? 09/11/2022 14:47 COVID-19 PCR Result NEGATIVE ()?? 09/11/2022 14:47 ? 35 ??minutes spent on discharge * Padmini Krishna RN: PERFORM Event Display: Patient Education/Instruction Authored Date: [id number] Inpatient Adult Discharge Instructions [place] [id number] Name: MARY CONTRERAS : 1985 Visit: 09/11/2022 12:54:00 Current Date: 09/13/2022 12:08 Account: [id number] Inpatient Adult Discharge Instructions We would like to thank you for allowing us to assist you with your healthcare needs. The following includes patient education materials and information regarding your injury/illness. Our entire staffstrives to provide an excellent experience for our patients and their families. PLEASE ENSURE YOU FOLLOW-UP PER THE INSTRUCTIONS BELOW! ?? YOUR OPINION IS IMPORTANT TO US! Please complete the survey you may receive by mail or email. Your feedback will be used to make improvements to the healthcare experiences of our patients and their families. Surveys are administered by [employer] ?? If further treatment with your primary care physician or another doctor is recommended, it is important for you to keep the appointment. Call your primary care physician or return to the Emergency Department immediately if your condition worsens, fails to improve, or new symptoms develop. If you need to find a doctor, you can call [facility] [employer] for a referral at [phone] or toll free at [phone] or log in to [email or web address].. ?? You can view and manage your care through the patient portal or by using a health care gasper of your choosing. [employer] is a website that allows you to securely view your medical information including your hospital discharge summary, office visit summaries, medications and follow-up visits. You can also request appointments, renew medications, and request access to your medical information using a health care gasper of your choosing, or just ask a question. You can enroll at [email or web address] or register during your next office visit. You have been discharged from [facility], Patient Care Unit: [id number]. If you have any questions regarding these instructions after you leave, please call us and we will be happy to assist you. [facility] Your Care Team Attending Physician Mj ROSARIO, Karrie Atwood Consulting Providers Meng Joseph MD Discharging Providers Mj ROSARIO, Karrie Atwood Reason for Admission Shortness of breath Your Diagnosis Near syncope QT prolongation Alcohol use disorder, mild, abuse Tests Performed Below is a partial list of the tests performed during your hospitalization. You may have had other tests and procedures not included in this list. Please discuss all test results with your provider. Albumin Level Basic Metabolic Panel BUN Calcium Level CBC w/ Differential COVID-19, RSV, and Flu A/B, Rapid PCR Creatinine D-DIMER Electrolytes Glucose Level High??Sensitivity??Troponin T HOLD BLUE TUBE HOLD GEL TUBE HOLD OTHER TUBE Magnesium Level Phosphorus Level PROBNP Total Protein Troponin T, High Sensitivity Urinalysis w/hold for Urine Culture Urine Amphetamine Screen?-- Results Pending -- Urine Cannabinoid Screen?-- Results Pending -- Urine Cocaine Screen?-- Results Pending -- URINE MICROSCOPIC Urine Opiate Screen?-- Results Pending -- CT Angio Chest XR Chest 2 Views Frontal and Lat ? You will be contacted within 72 hours with your results. Primary Care Provider Ryanne Mojica NP Advance Directive Health Care Proxy on File Yes - Health Care Proxy No qualifying data available. Discharge Vitals Temperature: 97.7 DegF Height: 183 cm Pulse Rate: 78 bpm Weight: 89.5 kg Respiratory Rate: 16 br/min Body Mass Index:??26.73 kg/m2??High Systolic Blood Pressure:??143 mm Hg??High Body surface area: 2.13 Diastolic Blood Pressure:??89 mm Hg??High ?? Oxygen Saturation: 100 % ?? Studies Pending All tests and labs ordered during this hospital stay have been completed unless listed below. Please discuss all pending results with your provider listed above in these instructions. ?? Add On Lab Order (Lab Add On Order) Amphetamine Urine Screen (Urine Amphetamine Screen) Cannabinoid Urine Screen (Urine Cannabinoid Screen) Cocaine Urine Screen (Urine Cocaine Screen) Opiate Screen Urine (Urine Opiate Screen) Sputum Culture w/ Gram Smear What to do next Instructions From Your Doctor you were admitted with near syncopal attack. all the work up has been negative. you should follow up with your primary care physician within the next 1-2 weeks ?? Discharge Orders Scheduled Follow-Up Appointments Thursday 2:00 PM EST ?? With: Drew HOSKINS, Kaylyn Ansari Where: [address] [place] [address]- You Need to Schedule the Following Appointments Follow Up with??Galina HOSKINS, Ryanne Donovan When?? Where: [address] [place] [address]- Discharge Medications MARY CONTRERAS :1985 Visit Date:09/11/2022 Medications: Please continue your medications until treatment is completed or stopped by your provider. Medications not listed below should be discontinued. Discuss any questions related to medications with your provider. What How Much When Instructions Next Dose Changed Armodafinil (armodafinil 250 mg oral tablet) 1 tab(s) Oral Daily as needed for Other resume home schedule Unchanged Albuterol (Albuterol (Eqv-ProAir HFA) 90 mcg/ inh inhalation aerosol) 2 puff(s) Inhalation Every 6 hours as needed for Wheezing/Shortness of Breath resume home schedule Unchanged Baclofen (baclofen 10 mg oral tablet) 1 tab(s) Oral Daily as needed for Other resume home schedule Unchanged Escitalopram (escitalopram 20 mg oral tablet) 1 tab(s) Oral Daily resume home schedule Unchanged galcanezumab (Emgality Prefilled Pen 120 mg/ mL subcutaneous solution) 120 Milligram Subcutaneous Infusion Every 28 days resume home schedule Unchanged Lamotrigine 50 Milligram Oral Daily 9:00 AM tomorrow Unchanged Multivitamin (Multi Vitamin+) 1 tab Daily 9:00 AM tomorrow Unchanged Omeprazole (omeprazole 20 mg oral enteric coated capsule) 1 capsule Oral Daily 9:00 AM tomorrow Unchanged Ondansetron (Zofran ODT 4 mg oral tablet, disintegrating) 8 Milligram Oral Every 8 hours as needed for as needed for nausea/vomiting as needed, not given today Unchanged rimegepant (Nurtec ODT 75 mg oral tablet, disintegrating) 1 tab(s) Oral Every 24 hours as needed for as needed for migraine headache not to exceed 75 mg in 24 hours ?? as needed, not given today Unchanged [place] 4 capsules 3 times a day resume home schedule Unchanged Sodium Oxybate (Xyrem 500 mg/ mL oral liquid) 4.5 Milliliter Oral Twice a day tonight at bedtime Unchanged Tretinoin Topical (tretinoin 0.025% topical cream) Topically Daily at Bedtime resume schedule ?? What How Much When Comments Stop Taking HydrOXYzine (hydrOXYzine hydrochloride 10 mg oral tablet) 1 tab(s) Oral 4 times a day Stop Taking Prazosin (prazosin 2 mg oral capsule) 1 capsule Oral Daily at Bedtime Test Results Below is a partial list of the most recent Laboratory test results done prior to this discharge. You may have had other tests and procedures not included in this list. Please discuss all test resultswith your provider. Albumin Level (09/12/2022) ???Albumin - 3.5 Gm/dL Basic Metabolic Panel (09/11/2022) ???Sodium - 142 mmol/L???Potassium - 3.4 mmol/L???Chloride - 102 mmol/L???Bicarbonate Level - 27 mmol/L???Anion Gap - 13???Glucose Level - 129 mg/dL???BUN - 11 mg/dL???Creatinine-Blood - 1.0 mg/dL???Estimated GFR Creatinine - 96 ML/MIN/1.73 M2???Calcium - 9.3 mg/dL BUN (09/12/2022) ???BUN - 8 mg/dL Calcium Level (09/12/2022) ???Calcium - 8.5 mg/dL CBC w/ Differential (09/12/2022) ???WBC - 6.1 k/mm3???RBC - 3.71 m/mm3???Hgb - 11.8 Gm/dL???Hct - 36.5 %???MCV - 98.4 femtoliters???MCH - 31.8 pg???MCHC - 32.3 g/dL???Platelet Count - 198 k/mm3???RDW-SD - 46.9 femtoliters???MPV - 8.8 femtoliters???Nucleated RBC (Automated) - 0.0 #/100 WBC'S???Abs. NRBC - 0.0 k/mm3???Abs. Neut - 3.4 k/mm3???Abs. Lymph - 1.8 k/mm3???Abs. [place] - 0.8 k/mm3???Abs. Eo - 0.1 k/mm3???Abs. Baso - 0.0 k/mm3???Neut % - 55.3 %???Lymph % - 29.2 %???[place] % - 13.7 %???Eos % - 0.8 %???Baso % - 0.5 %???Imm Gran - 0.5 %???Abs. Imm Gran - 0.0 k/mm3 COVID-19, RSV, and Flu A/B, Rapid PCR (09/11/2022) ???Influenza A PCR - NEGATIVE???Influenza B PCR - NEGATIVE???RSV PCR - NEGATIVE???COVID-19 PCR Specimen Source - NASAL???COVID-19 PCR Result - NEGATIVE Creatinine (09/12/2022) ???Creatinine-Blood - 0.9 mg/dL???Estimated GFR Creatinine - 109 ML/MIN/1.73 M2 D-DIMER (09/11/2022) ???D-Dimer - 1.05 mg/L FEU Electrolytes (09/12/2022) ???Sodium - 139 mmol/L???Potassium - 3.4 mmol/L???Chloride - 100 mmol/L???Bicarbonate Level - 30 mmol/L???Anion Gap - 9 Glucose Level (09/12/2022) ???Glucose Level - 179 mg/dL High??Sensitivity??Troponin T (09/11/2022) ???High Sensitivity Troponin (HSTnT) - 55 ng/L HOLD BLUE TUBE (09/11/2022) ???Hold Blue Top - SPECIMEN DISCARDED AFTER 4 HOURS. HOLD GEL TUBE (09/11/2022) ???Hold Gel Top - SPECIMEN DISCARDED AFTER 1 WEEK HOLD OTHER TUBE (09/11/2022) ???Hold Other - SPECIMEN DISCARDED AFTER 1 WEEK Magnesium Level (09/12/2022) ???Magnesium - 2.5 mg/dL Phosphorus Level (09/12/2022) ???Phosphorus - 1.8 mg/dL PROBNP (09/11/2022) ???Nt-Probnp - 1296 pg/mL Total Protein (09/12/2022) ???Protein, Total - 5.9 Gm/dL Troponin T, High Sensitivity (09/11/2022) ???High Sensitivity Troponin (HSTnT) - 52 ng/L Urinalysis w/hold for Urine Culture (09/11/2022) ? ?Appear/Color, Urine - YELLOW? ?Clarity - CLEAR? ?Specific Hassell, Urine - <1.005? ?pH, Urine- 7.0???Albumin, Urine - 1+???Glucose, Urine - NEGATIVE???Ketones, Urine - 1+???Bilirubin, Urine - 1+???Hemoglobin, Urine - TRACE???Nitrite, Urine - NEGATIVE???Leukocyte, Urine - NEGATIVE???Urobilinogen - 4 mg/dL???Hold Urine Culture - Testing available 48 hours from time of collection. URINE MICROSCOPIC (09/11/2022) ???WBC's, Urine - NONE SEEN???RBC's, Urine - 3 /HPF???Bacteria - SLIGHT???Mucus - SLIGHT Allergies (NKA means No Known Allergies) NKA Problems Active Problems??(9) Abdominal pain, JOSÉ MIGUEL?? Asthma?? Fever, unknown origin, elev temp 99-100 in afternoon?? Gait difficullty?? Hypersomnia?? Idiopathic hypersomnia with long sleep time?? Rectal bleeding?? Thoracic Neuroblastoma, s/p resection at 8 wks of age?? Weight loss, non-intentional?? Education Materials Below is the list of Educational Leaflet Providered with your Discharge Instructions. Valuables and Belongings I fully understand and agree that [facility] accepts no responsibility for all my personal property including clothing, toilet articles, radios, jewelry, dentures, hearing aids, rings, money, or any other property that is in my possession or is brought to me after admission. I understand certain valuables may be placed in a hospital safe for a short period of time. I understand that the hospital is not liable for loss or damage due to accident, fire, or other natural occurrence while said property is in the safe. I accept full responsibility for any personal property that I keep with me, and will not hold the hospital responsible in case of loss or disappearance. I acknowledge that i have been encouraged to send valuables and belongings home. ?? Review of Valuable and Belonging List: With patient Date for Pt to Sign Valuables/Belongings: 09/11/22 20:15:00 ?? Other Discharge Information ? Pulmonary Rehab Status?? Pulmonary Rehab Discharge Status?? CPAP/BiPAP Mask Type: Full CPAP/BiPAP Mask Size: Medium Respiratory Rate: 16 br/min ? Common Emergency Awareness Tips IS IT A STROKE? Act FAST and Check for these signs: FACE Does the face look uneven? ARM Does one arm drift down? SPEECH Does their speech sound strange? TIME Call at any sign of stroke ?? Heart Attack Signs Chest discomfort: Most heart attacks involve discomfort in the center of the chest and lasts more than a few minutes, or goes away and comes back. It can feel like uncomfortable pressure, squeezing, fullness or pain. Discomfort in upper body: Symptoms can include pain or discomfort in one or both arms, back, neck, jaw or stomach. Shortness of breath: With or without discomfort. Other signs: Breaking out in a cold sweat, nausea, or lightheaded. Remember, MINUTES DO MATTER. If you experience any of these heart attack warning signs, call to get immediate medical attention! ?? Smoking can increase your chances of developing chronic health problems and can cause harmful effects to other family members in your house. If you smoke, you are strongly encouraged to quit. Please call [facility] at [phone] or [phone] ([phone]) or log in to [email or web address] for referrals to smoking cessation programs. ?? The National Suicide Prevention Hotline is available 18/05 if you or someone you know needs to find a reason to keep living. By calling 7-[employer] (0930) you'll be connected to a skilled, trained counselor at a crisis center in your area. INPATIENT DISCHARGE INSTRUCTIONS SIGNATURE PAGE MARY CONTRERAS Location:[facility] Registration Date and Time:09/11/2022 12:54 EST Primary Care Physician: Galina HOSKINS, Ryanne Donovan, I CONTRERASMARY, have received the above patient education materials/instructions and have verbalized understanding. If ambulance or transport services are being used I further acknowledge being given a choice of service. ?? If you need to contact me, please call me at this number: . Patient/Market Risk Specialist Name: Patient/Market Risk Specialist Signature: Relationship to Patient: Witness Name/Signature: Date: * ALFRED Abel S: TRANSCNancy Joe MD: VERIFY Abrahan Chinchilla MD: SIGN Event Display: Result: Authored Date: Chest 2 Views Frontal and Lat Hx of Present Illness: Recent d c from ICU since then having episodes of AMS, BARON, vomiting, stateshas eipsidoes of being altered . Productive cough w blood.; Reason: Shortness of Breath; Clinical Question(s): Pneumonia COMPARISON: Chest radiograph from 05/08/2022. FINDINGS: LINES AND TUBES: None. LUNGS AND PLEURA: Clear lungs. Normal pulmonary vascularity. No pleural effusion. No pneumothorax. HEART, MEDIASTINUM AND SALINA: Heart is normal in size. Normal mediastinal and hilar contour. BONES AND SOFT TISSUES.: No acute abnormality. Unchanged fusion of the posterolateral aspects of the right sixth and seventhribs. IMPRESSION: No acute abnormality. I have personally reviewed the images and I agree with this report. WSN: [id number] Ordering Physician: Ronald Solomon Dictated By: Abrahan Chinchilla MD Dictated Date/Time: 09/11/22 4:12 pm Reviewed By: Nancy Tavares MD Signed By: Nancy Tavares MD Signed Date/Time: 09/11/22 4:17 pm Transcribed By: MJ Transcribed Date/Time: 09/11/22 4:06 pm CTA Chest vessels W contrast IV * ALFRED Abel S: TRANSCLeonel Hung MD: VERIFY Event Display: Result: Authored Date: [id number] EXAMINATION: CT Angio Chest INDICATION: Hx of Present Illness: Recent d c from ICU since then having episodes of AMS, BARON, vomiting, states has eipsidoes of being altered . Productive cough w blood.; Reason: Other:; PE suspected, Intermediate prob, positive D-dimer,; Clinical Question(s): Pulmonary Embolism TECHNIQUE: Spiral CTA of the chest was performed after rapid IV contrast administration without cardiac gating, triggered by an ROSALINO on the main pulmonary artery. Images are formatted in multiple planes using 2-D multiplanar and 3-D maximum intensity projection. 100 cc of Omnipaque 300 was administered intravenously. Weight-based protocol using automatic tube modulation was used to optimize exposure parameters. CTDIvol Body: 6.06 mGy, DLP Body: 276 mGy*cm. COMPARISONS: Chest x-ray 09/08/2022. ANGIOGRAPHIC FINDINGS: No pulmonary embolism to the subsegmental level. Normal caliber pulmonary arteries. No acute aortic abnormality seen on this study performed without cardiac gating. NON-ANGIOGRAPHIC FINDINGS: Fabric Lay Out Worker View Findings, Lines and Tubes: None. Trachea and Airways: Patent without evidence of tracheal or endobronchial lesion. Lungs and Pleura: The right lung is clear. There is a patchy dependent groundglass and airspace opacity in the left upper and lower lobes which is improved compared to the previous chest x-ray. This may represent resolving pneumonia. No effusion or pneumothorax. Mediastinum and salina: No mass or hematoma. No mediastinal or hilar lymphadenopathy. No esophageal abnormality. Heart: Heart is normal in size. No pericardial effusion. Chest Wall Soft Tissues: Normal. Diaphragm and upper abdomen: No significant abnormality. Bones: No acute abnormality. IMPRESSION: No evidence of pulmonary embolism. Minimal dependent airspace and groundglass opacity in left upper and lower lobe which may representresolving pneumonia. WSN: [id number] Ordering Physician: Nancy Ho Dictated By: Leonel Suazo MD Dictated Date/Time: 09/11/22 5:35 pm Reviewed By: Leonel Suazo MD Signed By: Leonel Suazo MD Signed Date/Time: 09/11/22 5:35 pm Transcribed By: MJ Transcribed Date/Time: 09/11/22 5:26 pm Patient Care team information Care Team Personnel Name: Ryanne Mojica NP Position: Reference Physician Member Role: PCP Address: Address: [address] [place] [address]- [place] Name: Nancy Ho MD Position: [facility] ED Medicine MD Member Role: ED Attending Physician Address: Address: [address] [place] [address] [place] [address]- Name: Krysta Michaud RN Position: [facility] ED RN W/OE and Tasks Member Role: Patient Care Provider Name: Tom Ross Position: [facility] ED OA Charge Member Role: ED Associate Care Team Related Persons Name: BEN NATALIA Address: home [address] [place] [address] Name: KATIE KITCHEN Address: home [address] [place] [address] Name: CLARITA MCCORMACK Address: home [address] [place] [address]
--- OUTSIDE RECORDS SUMMARY | 2024-04-01 10:17 | XMS_ITS | Continuity of Care Document ---
Author Organization [facility] Address [address] [place] [address]- Care Team Providers Care Manager Cardiac Cath Name Role Phone Galina HOSKINS, Ryanne Donovan Primary Care Physician [place] [facility] [place] - 05/06/[address] [address]- Discharge Disposition: A-D/C Home Attending Physician: Srinath Raymond MD Admitting Physician: Srinath Raymond MD Referring Physician: Not on Staff, Referring [...] at bedtime, take twice nightly: 1999 and 0, 0 Refills, Maintenance, 09/24/16 12:44:44 Start Date: [...] of age(Confirmed) Active Weight loss, non-intentional(Confirmed) Active Vital Signs Most recent to oldest [Reference Range]: 1 2 3 Height 184 cm (05/06/22 12:49 PM) 184 cm (05/06/22 12:48 PM) Weight 95.8 kg (05/06/22 12:49 PM) 95.8 kg (05/06/22 12:48 PM) Oxygen Saturation [94-100 %] 98 % (05/06/22 5:35 PM) 98 % (05/06/22 3:58 PM) 96 % (05/06/22 12:48 PM) Pulse Rate [55-90 bpm] 94 bpm *H* (05/06/22 5:35 PM) 118 bpm *H* (05/06/22 3:58 PM) 105 bpm *H* (05/06/22 12:48 PM) Body Mass Index [18.5-24.99] 28.3 *H* (05/06/22 12:48 PM) Blood Pressure [90-138/55-84 mm Hg] 142/87mm Hg *H* (05/06/22 5:35 PM) 164/96mm Hg *H* (05/06/22 3:58 PM) 152/99mm Hg *H* (05/06/22 12:48 PM) Respiratory Rate [16-30 br/min] 16 br/min (05/06/22 5:35 PM) 16 br/min (05/06/22 3:58 PM) 16 br/min (05/06/22 12:48 PM) Temperature [96.8-100.4 DegF] 99.2 DegF (05/06/22 5:35 PM) 98.8 DegF (05/06/22 3:58 PM) 98.1 DegF (05/06/22 12:48 PM) Mode of Delivery (Oxygen) Room air (05/06/22 5:35 PM) Room air (05/06/22 12:48 PM) Blood pressure sites Arm, right (05/06/22 12:48 PM) Temperature Route Oral (05/06/22 5:35 PM) Temporal (05/06/22 3:58 PM) Temporal (05/06/22 12:48 PM) Dry Weight 95.8 kg (05/06/22 12:49 PM) 95.8 kg (05/06/22 12:48 PM) Social History Social History Type Response Smoking Status Never smoker entered on: 12/22/13 Sex
--- OUTSIDE RECORDS SUMMARY | 2024-04-01 10:17 | XMS_ITS | Continuity of Care Document ---
Author Organization [facility] oenterology Address [address] [place] [address]- Care Team Providers Care Ecg Technician Name Role Phone Galina HOSKINS, Ryanne Donovan Primary Care Physician ( [phone] Encounter [facility] [place] Date(s): 06/23/22 - 07/23/22 [facility] Gastroenter[facility] [address] [place] [address]- Allergies, Adverse Reactions, Alerts No Known Allergies [...] Personnel Name: Ryanne Mojica NP Address: Address: [address] [place] [address]
--- OUTSIDE RECORDS SUMMARY | 2024-04-01 10:17 | XMS_ITS | Continuity of Care Document ---
Author Organization [facility] Address [address] [place] [address]- Care Team Providers Care Yardage Control Operator Forming Name Role Phone Galina HOSKINS, Ryanne Donovan Primary Care Physician [place] [facility] [place] 11[place]03[place]21 [facility] [address] [place] [address]- [place] Allergies, Adverse Reactions, Alerts Substance Reaction Severity [...] capsule, By Mouth, Daily, # 90 capsule, 0 Refills, Maintenance, 04/22/21 9:55:00 EDT, [id number], 91.4, kg, 01/28/21 7:04:00 EDT, Dry Weight Start Date: 04/22/21 Status: Ordered prazosin 2 mg oral capsule [...]
--- OUTSIDE RECORDS SUMMARY | 2024-04-01 10:17 | XMS_ITS | Continuity of Care Document ---
Author Organization [facility] Address [address] [place] [address] [address] [place] [address]- Care Team Providers Care Steam Hoist Operator Name Role Phone Galina HOSKINS, Ryanne Donovan Primary Care Physician Encounter [facility] Date(s): 09/19/22 - 10/19/[address] [place], [place] [address] Attending Physician: Jesus Nicole Admitting Physician: Jesus Nicole Referring Physician: Jesus Nicole Referring Physician: Fadia Alcazar Allergies, Adverse Reactions, Alerts No Known Allergies Immunizations Given and Recorded Vaccine Date Status Refusal Reason influenza virus vaccine, inactivated 07/17/22 Robson rded influenza virus vaccine, inactivated 08/22/21 Robson rded influenza virus vaccine, inactivated 07/21/20 Robson rded influenza virus vaccine, inactivated 06/26/17 Robson rded influenza virus vaccine, inactivated 08/09/16 Robson rded [id number] 12y+ bivalent booster vax 07/17/22 Recorded SARS-CoV-2 [...] Reference Physician Member Role: PCP Address: Address: [address] [place] [address]- Care Team Related Persons Name: NATALIA CONTRERAS Address: home [address] [place] [id number] Name: KATIE KITCHEN Address: home [address] [place] [address] Name: CLARITA MCCORMACK Address: home [address] [place] [address]
--- OUTSIDE RECORDS SUMMARY | 2024-04-01 10:17 | XMS_ITS | Continuity of Care Document ---
Author Organization [facility] Address [address] [place] [address]- Care Team Providers Care Bakery Technician Name Role Phone Galina HOSKINS, Ryanne Donovan Primary Care Physician [place] [facility] [place] - 01/28/[address] [address]- [phone] Discharge Disposition: A-D/C Home Attending Physician: Elizabeth Cheema MD Admitting Physician: Elizabeth Cheema MD Referring Physician: Elizabeth Cheema MD Allergies, Adverse Reactions, Alerts Substance Reaction Severity [...] Diphth/Pertussis, Whl Cell/Tet(oldterm) 02/23/86 R ecorded Diphth/Pertussis, l Cell/Tet(oldterm) 85 R ecorded Poliovirus Vaccine, Inactivated [...] 2 times a day, # 60 capsule, 5 Refills, Maintenance, 01/28/21 8:44:00 EDT, EC Capsule, [id number], Partial fill upon patient request if the prescription is for a schedule II opioid drug., 91.4, kg, 01/28/21 7:04:00... Start Date: 01/28/21 Stop Date: 07/27/21 Status: Ordered omeprazole 20 mg oral enteric coated capsule 1 capsule = 20 mg, By Mouth, Daily, # 90 capsule, 0 Refills, Maintenance, 01/08/21 16:22:00 EDT, ECCapsule, [id number], Partial fill upon patient request if the prescription is for a schedule II opioid drug. Start Date: 01/08/21 Status: Ordered prazosin 2 mg oral capsule [...] to oldest [Reference Range]: 1 2 3 Oxygen Saturation [94-100 %] 97 % (01/28/21 8:30 AM) 97 % (01/28/21 8:10 AM) 97 % (01/28/21 8:05 AM) Pulse Rate [55-90 bpm] 92 bpm *H* (01/28/21 7:04 AM) Blood Pressure [90-138/55-84 mm Hg] 139/91mm Hg *H* (01/28/21 8:10 AM) 127/75mm Hg (01/28/21 8:05 AM) 155/91mm Hg *H* (01/28/21 7:04 AM) Respiratory Rate [16-30 br/min] 15 br/min *L* (01/28/21 8:10 AM) 18 br/min (01/28/21 8:05 AM) 19 br/min (01/28/21 7:04 AM) Temperature [96.8-100.4 DegF] 98.2 DegF (01/28/21 7:04 AM) Mode of Delivery (Oxygen) Room air (01/28/21 8:30 AM) Room air (01/28/21 8:10 AM) Room air (01/28/21 8:05 AM) Blood pressure sites Arm, left (01/28/21 7:04 AM) Temperature Route Temporal (01/28/21 7:04 AM) Dry Weight 91.4 kg (01/28/21 7:04 AM) Dry Weight Obtained Via Standing scale (01/28/21 7:04 AM) Social History Social History Type Response Smoking Status Never smoker entered on: 12/22/13 Sex
--- OUTSIDE RECORDS SUMMARY | 2024-04-01 10:17 | XMS_ITS | Continuity of Care Document ---
Author Organization [facility] Address [address] [place] [address]- Care Team Providers Care Systems Development Consultant Name Role Phone Galina HOSKINS, Ryanne Donovan Primary Care Physician [place] [facility] [place]14[place]21 - 03/21/21 [facility] [address] [place] [address]- Attending Physician: Carlitos HOSKINS, Jena Dixon Admitting Physician: Carlitos HOSKINS, Jena Dixon Referring Physician: Galina HOSKINS, Ryanne Donovan Allergies, Adverse Reactions, Alerts Substance Reaction Severity [...]
--- OUTSIDE RECORDS SUMMARY | 2024-04-01 10:17 | XMS_ITS | Continuity of Care Document ---
Author Organization [facility] Address [address] [place] [address]- Care Team Providers Care Armament Installer Name Role Phone Galina HOSKINS, Ryanne Donovan Primary Care Physician Encounter [facility] [place] Date(s): 01/18/24 - 01/18/[address] [address]- Encounter Diagnosis Altered mental status(Final) - 01/18/24 Discharge Disposition: A-D/C Home Attending Physician: Regan Dougherty MD Admitting Physician: Regan Dougherty MD Referring Physician: Not on Staff, Referring MD Allergies, Adverse Reactions, Alerts No Known Allergies Immunizations Given and Recorded Vaccine Date Status Refusal Reason influenza virus vaccine, inactivated 07/17/22 Robson rded influenza virus vaccine, inactivated 08/22/21 Robson rded influenza virus vaccine, inactivated 07/21/20 Robson rded influenza virus vaccine, inactivated 06/26/17 Robson rded influenza virus vaccine, inactivated 08/09/16 Robson rded [id number] 12y+ bivalent booster vax 07/17/22 Recorded SARS-CoV-2 [...] a schedule II opioid drug. Start Date: 3/16/21 Status: Ordered Emgality Prefilled Pen 120 mg/mL [...] capsule, 3 Refills, Maintenance, 11/11/22 11:31:00 EST, [id number], 183, cm, 09/19/22 14:01:00 EST, Height, [...] Active Weight loss, non-intentional Confirmed Active Results Radiology Reports * Exam Date Time Procedure Performing Provider Status 01/18/24 6:[address] Abdomen and Pelvi s W/O Contrast Miryam Bailey; Jose Daniel (Verified) Notes: (CT Abdomen and Pelvis W/O Contrast) Reason For Exam: foreign bodies/drugs in intestine?;Other: RESULT: CT Abdomen and Pelvis W/O Contrast CT Abdomen and Pelvis W/O Contrast Hx of Present Illness: PD was called for disturbance, altered mental status, not aware of surroundings, Reason: Other:; foreign bodies drugs in intestine?; Clinical Question(s): Obstruction TECHNIQUE: Spiral CT through the abdomen and pelvis without IV contrast formatted in 3 planes. Thisstudy was performed without oral contrast. Weight- based protocol using automatic tube modulation was used to optimize exposure parameters. CTDIvol Body: 12.75 mGy, DLP Body: 773 mGy*cm. COMPARISON: CT abdomen pelvis 04/15/2016 FINDINGS: Restaurant Mgr View Findings, Lines and Tubes: None. Visualized Chest: Lung bases are clear. No pleural effusion. The heart is normal in size. No pericardial effusion. Diaphragm: Normal. Liver: Normal. Gallbladder: No CT evidence of gallbladder pathology. Bile ducts: No biliary ductal dilation. Spleen: Normal. Pancreas: Normal. Adrenal glands: Normal. Kidneys and ureters: No hydronephrosis, stones, or noncontrast evidence of suspicious masses. Bladder: Normal. Reproductive organs: Unremarkable. Stomach, small bowel, and large bowel: Stomach, small bowel and large bowel are normal in caliber. No evidence of bowel obstruction. No acute inflammatory process of the bowel. Nonspecific edema in the mesorectal fat. No associated rectal wall thickening. Appendix: Normal. Peritoneum and retroperitoneum: No ascites or pneumoperitoneum. No omental or mesenteric lesions. Lymph nodes: No enlarged lymph nodes. Blood vessels: Normal. No aneurysm. Abdominal and pelvic wall: Small fat-containing umbilical hernia. Bones: No acute abnormality. IMPRESSION: No acute process in the abdomen or pelvis. Nonspecific edema in the mesorectal fat. A similar preliminary report was provided by [facility]. WSN: [id number] Ordering Physician: Hari Daugherty Dictated By: Kevin Rodriguez MD Dictated Date/Time: 01/18/24 8:02 am Reviewed By: Kevin Rodriguez MD Signed By: Kevin Rodriguez MD Signed Date/Time: 01/18/24 8:02 am Transcribed By: MJ Transcribed Date/Time: 01/18/24 7:51 am * Exam Date Time Procedure Performing Provider Status 01/18/24 6:[address] Head/Brain W/O Contrast Nilda Bailey; Auth (Verified) Notes: (CT Head/Brain W/O Contrast) Reason For Exam: Other: RESULT: CT Head/Brain W/O Contrast CT Head/Brain W/O Contrast INDICATION: Hx of Present Illness: Altered mental status. Reason: Other:; Clinical Question(s): Hematoma TECHNIQUE: Noncontrast head CT using axial technique and reconstructed in axial and coronal planes.Iterative reconstruction techniques are used to optimize dose and image quality. CTDIvol Head: 45.20 mGy, DLP Head: 772 mGy*cm. COMPARISON: CT head and cervical spine 10/14/2022. FINDINGS: Restaurant Mgr view findings, lines and tubes: None. BRAIN AND EXTRA-AXIAL SPACES: No parenchymal hemorrhage, midline shift, or mass effect. Vick-white matter differentiation is wellpreserved. No acute infarct. Negative insular ribbon and hyperdense vessel signs. Ventricles, sulci, and basilar cisterns are normal. No white matter lesions. No subarachnoid hemorrhage. No subdural or epidural collection. CALVARIUM, SKULL BASE, AND SOFT TISSUES: No fractures or suspicious bony lesions. The paranasal sinuses and mastoid air cells are clear. Visualized orbits and globes are intact. The extracranial soft tissues are unremarkable. IMPRESSION: No acute intracranial pathology. A similar preliminary report was provided by [facility]. WSN: [id number] Ordering Physician: Hari Daugherty Dictated By: Kevin Rodriguez MD Dictated Date/Time: 01/18/24 7:50 am Reviewed By: Kevin Rodriguez MD Signed By: Kevin Rodriguez MD Signed Date/Time: 01/18/24 7:50 am Transcribed By: MJ Transcribed Date/Time: 01/18/24 7:45 am Vital Signs Most recent to oldest [Reference Range]: 1 2 3 Height 184 cm (01/18/24 1:39 PM) 184 cm (01/18/24 10:21 AM) 184 cm (01/18/24 5:23 AM) Weight 86.6 kg (01/18/24 1:39 PM) 86.6 kg (01/18/24 10:21 AM) 86.6 kg (01/18/24 5:23 AM) Oxygen Saturation [94-100 %] 96 % (01/18/24 1:39 PM) 98 % (01/18/24 12:52 PM) 97 % (01/18/24 10:21 AM) Pulse Rate [55-90 bpm] 87 bpm (01/18/24 1:39 PM) 79 bpm (01/18/24 12:52 PM) 50 bpm *L* (01/18/24 10:21 AM) Body Mass Index [18.5-24.99 kg/m2] 25.58 kg/m2 *H* (01/18/24 1:39 PM) 25.58 kg/m2 *H* (01/18/24 10:21 AM) Blood Pressure [90-138/55-84 mm Hg] 102/98mm Hg (01/18/24 1:39 PM) 121/71mm Hg (01/18/24 12:52 PM) 90/48mm Hg (01/18/24 10:21 AM) Respiratory Rate [16-30 br/min] 16 br/min (01/18/24 1:39 PM) 16 br/min (01/18/24 12:52 PM) 13 br/min *L* (01/18/24 10:21 AM) Temperature [96.8-100.4 DegF] 98.0 DegF (01/18/24 5:23 AM) Mode of Delivery (Oxygen) Room air (01/18/24 1:39 PM) Room air (01/18/24 12:52 PM) Room air (01/18/24 10:21 AM) Blood pressure sites Arm, right (01/18/24 1:39 PM) Arm, left (01/18/24 12:52 PM) Arm, right (01/18/24 6:37 AM) Temperature Route Temporal (01/18/24 5:23 AM) Dry Weight 86.6 kg (01/18/24 1:39 PM) 86.6 kg (01/18/24 10:21 AM) 86.6 kg (01/18/24 5:23 AM) Social History Social History Type Response Smoking Status Never smoker entered on: 12/22/13 Sex EKG study * Event Display: ECG 12-Lead Authored Date: Please click on pdf link to open report * Event Display: ECG 12-Lead Authored Date: Ventricular Rate: 62 BPM Atrial Rate: 62 BPM P-R Interval: 136 ms QRS Duration: 84 ms Q-T Interval: 428 ms QTC Calculation(Bazett): 434 ms P [place]: 50 degrees R [place]: 59 degrees T [place]: 55 degrees Normal sinus rhythm Nonspecific ST and T wave abnormality Abnormal ECG When compared with ECG of 18-JAN-2024 05:35, No significant change was found Confirmed by SAMIRA TORRES ([id number]) on 01/18/2024 4:11:54 PM [place]: SAMIRA TORRES * Event Display: ECG 12-Lead Authored Date: [id number] Please click on pdf link to open report * Event Display: ECG 12-Lead Authored Date: [id number] Ventricular Rate: 58 BPM Atrial Rate: 58 BPM P-R Interval: 136 ms QRS Duration: 84 ms Q-T Interval: 436 ms QTC Calculation(Bazett): 428 ms P [place]: 63 degrees R [place]: 62 degrees T [place]: 33 degrees Sinus bradycardia Otherwise normal ECG When compared with ECG of 21-OCT-2022 14:54, Nonspecific T wave abnormality has replaced inverted T waves in Inferior leads Confirmed by SAMIRA TORRES ([id number]) on 01/18/2024 9:57:27 AM [place]: SAMIRA TORRES Note * Farhat ROSARIO [facility]: PERFORM Event Display: Patient Education Leaflets Authored Date: [id number] Altered Level of Consciousness ?? [id number] Altered Level of Consciousness Level of consciousness (LOC) is a measure of a person???s ability to interact with other people andto react to what is around them. A person with an altered level of consciousness may not respond totouch or voices. They??may look vacant or blank. They may not make eye contact with others. The person??may be limp and may not move for a long time. Or they may??show little interest in moving. They may also be confused. There are many causes of altered LOC. They include low blood sugar, infection, medicines, head injuries, seizures,??stroke, and being intoxicated.. Altered LOC is a medical emergency. The healthcare provider will do tests to help find the cause. These may include blood tests and imaging tests. The person is treated so breathing and heart rate are stable. An IV (intravenous) line may be put into a vein in the arm or hand to give medicines. Oncethe cause of altered LOC is found, the goal is to treat the cause. In almost all cases, the person will be admitted to the hospital for diagnostic testing and??observation. Some less common conditions, such as locked-in syndrome and akinetic mutism, seem like a??coma.??But the person??is perfectly awake. Home care When your loved one is released from the hospital, you will be given guidelines for caring for them. In general: ??? Follow the healthcare provider's instructions for giving any prescribed medicines to your child. ??? Stay with your loved one or have another responsible adult look after them. Watchcarefully for any return of symptoms or changes in behavior. ??? If the person has diabetes, make sure that any approved medicines are given on time and as prescribed. ?? Follow-up care Follow up with your??healthcare provider, or our staff as advised. ?? When to seek medical advice Call your??healthcare provider right away if new symptoms appear. ?? Call 911 Call 911 or get medical care right away??if symptoms of altered LOC return. ?? Last Reviewed Date: 2021 ?? 0212-2604 [employer]. All rights reserved. This information is not intended as a substitute for professional medical care. Always follow your healthcare professional's instructions. ?? Patient Care team information Care Team Personnel Name: Galina HOSKINS, Ryanne Donovan Position: Reference Physician Member Role: PCP Address: Address: [address] [place] [address]- Care Team Related Persons Name: NATALIA CONTRERAS Address: home [address] [place] [address] Name: KATIE KITCHEN Address: home [address] [place] [address] Name: CLARITA MCCORMACK Address: home [address] [place] [address]
--- OUTSIDE RECORDS SUMMARY | 2024-04-01 10:17 | XMS_ITS | Continuity of Care Document ---
Author Organization [facility] Address [address] [place] [address]- Care Team Providers Care Packer Insulation Name Role Phone Ryanne Mojica NP Primary Care Physician Encounter [facility] [place] Date(s): 01/08/21 - 01/15/21 [facility] [address] [place] [address]- Attending Physician: Wanda Rivers MD Admitting Physician: Wanda Rivers MD Referring Physician: Ryanne Mojica NP Allergies, Adverse Reactions, Alerts Substance Reaction Severity [...] capsule, 0 Refills, Maintenance, 01/08/21 16:22:00 EDT, Jeremiah, [facility]/pharmacy #[id number], Partial fill upon patient request [...]
--- OUTSIDE RECORDS SUMMARY | 2024-04-01 10:17 | XMS_ITS | Continuity of Care Document ---
Author Organization [facility] Address [address] [place] [address] [address] [place] [address]- Care Team Providers Care Historical Site Guide Name Role Phone Galina HOSKINS, Ryanne Donovan Primary Care Physician [place] [facility] [place](s[place] 09/19/22 - 09/26/[address] [place] [address]- Encounter Diagnosis Rectal bleeding(Discharge Diagnosis) - 09/19/22 Attending Physician: Drew HOSKINS, Kaylyn Ansari Referring Physician: Elizabeth Cheema MD Allergies, Adverse Reactions, Alerts No Known Allergies Immunizations Given and Recorded Vaccine Date Status Refusal Reason influenza virus vaccine, inactivated 07/17/22 Robson rded influenza virus vaccine, inactivated 08/22/21 Robson rded influenza virus vaccine, inactivated 07/21/20 Robson rded influenza virus vaccine, inactivated 06/26/17 Robson rded influenza virus vaccine, inactivated 08/09/16 Robson rded [id number] 12y+ bivalent booster vax 07/17/22 Recorded SARS-CoV-2 [...] Confirmed Active Weight loss, non-intentional Confirmed Active Diagnosis Diagnosis Type Effective Dates Health Status Cl inical Service Informant Rectal bleeding Discharge Diagnosis 09/19/22 Vital Signs Most recent to oldest [Reference Range]: 1 Height 183 cm (09/19/22 2:01 PM) Pulse Rate [55-90 bpm] 89 bpm (09/19/22 2:01 PM) Blood Pressure [90-138/55-84 mm Hg] 143/ 75mm Hg *H* (09/19/22 2:01 PM) Respiratory Rate [16-30 br/min] 17 br/mi n (09/19/22 2:01 PM) Temperature [96.8-100.4 DegF] 97.2 DegF (09/19/22 2:01 PM) Temperature Route Temporal (09/19/22 2:01 PM) Social History Social History Type Response Smoking Status Never smoker entered on: 12/22/13 Sex Patient Care team information Care Team Personnel Name: Ryanne Mojica NP Position: Reference Physician Member Role: PCP Address: Address: [address] [place] [address] Care Team Related Persons Name: NATALIA CONTRERAS Address: [address] [place] [address] Name: KATIE KITCHEN Address: home [address] [place] [address] Name: CLARITA MCCORMACK Address: home [address] [place] [address]
--- OUTSIDE RECORDS SUMMARY | 2024-04-01 10:17 | XMS_ITS | Continuity of Care Document ---
Author Organization [facility] Address [address] [place] [id number]- Care Team Providers Care Yarn Skeins Examiner Name Role Phone Galina HOSKINS, Ryanne Donovan Primary Care Physician [place] [facility] [place]): [place] - 09/10/[address] [id number]- Discharge Disposition: A-D/C Home Attending Physician: Rickey Horton MD Admitting Physician: Juan C Gonzales MD [...] influenza virus vaccine, inactivated 08/09/16 Robson rded [id number] 12y+ bivalent booster vax 07/17/22 Recorded SARS-CoV-2 [...] opioid drug. Start Date: 01/08/21 Status: Ordered Problem List Condition Confirmation Course [...] Results Orders for Microbiology Reports Name Date Blood Culture 09/08/22 Blood Culture #2 09/08/22 Microbiology Reports TEST:Blood Culture STATUS:Unauthenticated BODY SITE: SOURCE:Blood COLLECTED DATE/TIME:09/08/22 1:54 PM Blood Culture SPECIMEN DESCRIPTION : BLOOD LAC SPECIAL REQUESTS : NONE Test performed at [facility], [address] [place] [address], Kaylyn Mims MD, Med Director, [place] [id number] CULTURE : NO GROWTH AFTER 48 HOURS REPORT STATUS : PRELIMINARY REPORT TEST:Blood Culture, Second Order STATUS:Unauthenticated BODY SITE: SOURCE:Blood COLLECTED DATE/TIME:09/08/22 1:54 PM Blood Culture, Second Order SPECIMEN DESCRIPTION : BLOOD LAC SPECIAL REQUESTS : NONE Test performed at [facility], [address] [place] [address], Kaylyn Mims MD, Med Director, [place] [id number] CULTURE : NO GROWTH AFTER 48 HOURS REPORT STATUS : PRELIMINARY REPORT Radiology Reports * Exam Date Time Procedure Performing Provider Status 09/08/22 4:30 AM Chest Portable Renee García; Auth (Verified) Notes: (Chest Portable) Reason For Exam: CHF RESULT: Chest Portable Chest Portable AP sitting at 4:31 AM Reason: CHF; Clinical Question(s): CHF COMPARISON: Multiple priors, the most recent 09/07/2022 FINDINGS: LINES AND TUBES: None. LUNGS AND PLEURA: There is no somewhat diffuse haziness in the lower half of the left hemithorax and moderate new haziness in the lower portion of the right hemithorax. The left hemidiaphragm is obscured and there is haziness in the left costophrenic angle. Upper lung mae are clear. Pulmonary vascularity is normal. No definite right pleural effusion. Possible left pleural effusion. No pneumothorax. HEART, MEDIASTINUM AND YAMIL: Heart is normal in size. Normal mediastinal and hilar contour. BONES AND SOFT TISSUES: No acute abnormality. IMPRESSION: New opacification in the lower half of each hemithorax, more severe on the left than the right. Findings are suspicious for lower lobe infiltrates with differential also including atelectasis and left pleural effusion. WSN: [id number] Ordering Physician: Dante Stanford Dictated By: Rafy Beauchamp MD Dictated Date/Time: 09/08/22 8:05 am Reviewed By: Rafy Beauchamp MD Signed By: Rafy Beauchamp MD Signed Date/Time: 09/08/22 8:05 am Transcribed By: MJ Transcribed Date/Time: 09/08/22 8:01 am * Exam Date Time Procedure Performing Provider Status 09/07/22 7:09 AM Chest Portable Kasandra García (Verified) Notes: (Chest Portable) Reason For Exam: Cough RESULT: Chest Portable Chest Portable Reason: Cough; Clinical Question(s): Tube Placement COMPARISON: 09/06/2022 FINDINGS: LINES AND TUBES: Nasogastric tube has been repositioned, now more optimally placed in the stomach. ET tube remains in place unchanged. LUNGS AND PLEURA: Clear lungs. Normal pulmonary vascularity. No pleural effusion. No pneumothorax. HEART, MEDIASTINUM AND YAMIL: Heart is normal in size. Normal mediastinal and hilar contour. BONES AND SOFT TISSUES: No acute abnormality. IMPRESSION: No acute abnormality. Nasogastric tube now in good position. WSN: [id number] Ordering Physician: Meng Joseph Dictated By: Coco Whitaker MD, I Dictated Date/Time: 09/07/22 7:18 am Reviewed By: Coco Whitaker MD, I Signed By: Coco Whitaker MD, I Signed Date/Time: 09/07/22 7:18 am Transcribed By: MJ Transcribed Date/Time: 09/07/22 7:17 am * Exam Date Time Procedure Performing Provider Status 09/06/22 2:26 PM Chest Portable Shanna Taylor (Verified) Notes: (Chest Portable) Reason For Exam: Line/Tube Placement;Other: RESULT: Chest Portable Chest Portable Hx of Present Illness: found unresponsive in field; Reason: Other:; Line Tube Placement; Clinical Question(s): Other:; Confirm Position, Assess for Complication COMPARISON: 06/26/2017. FINDINGS: LINES AND TUBES: There is an enteric tube which loops on itself at the mid to distal esophagus. Repositioning is recommended. There is an endotracheal tube with its tip 4 cm above the shobha. LUNGS AND PLEURA: Clear lungs. Normal pulmonary vascularity. No pleural effusion. No pneumothorax. HEART, MEDIASTINUM AND YAMIL: Heart is normal in size. Normal mediastinal and hilar contour. BONES AND SOFT TISSUES: No acute abnormality. IMPRESSION: There is an enteric tube which loops on itself at the mid to distal esophagus. Repositioning is recommended. WSN: [id number] Ordering Physician: Jeannette Kay Dictated By: Sammie Guerra MD Dictated Date/Time: 09/06/22 2:39 pm Reviewed By: Sammie Guerra MD Signed By: Sammie Guerra MD Signed Date/Time: 09/06/22 2:39 pm Transcribed By: MJ Transcribed Date/Time: 09/06/22 2:38 pm * Exam Date Time Procedure Performing Provider Status 09/06/22 2:[address] Cervical Spine W/O Contrast Esther Zhou (Verified) Notes: (CT Cervical Spine W/O Contrast) Reason For Exam: Neck trauma, dangerous injury mechanism;Other: RESULT: CT Cervical Spine W/O Contrast CT Head/Brain W/O Contrast, CT Cervical Spine W/O Contrast INDICATION: Hx of Present Illness: found unresponsive in field; Reason: Trauma; Clinical Question(s): Hematoma TECHNIQUE: Noncontrast head CT using axial technique was reconstructed in axial and coronal planes.Noncontrast spiral CT through the cervical spine was formatted in 3 planes. Automatic tube modulation was used for the cervical spine and iterative dose reconstruction was used for both the head and cervical spine to optimize scan parameters and image quality. CTDIvol Body: 11.90 mGy, DLP Body: 307 mGy*cm. CTDIvol Head: 39.20 mGy, DLP Head: 672 mGy*cm. COMPARISON: 12/21/2015. FINDINGS: Expert Witness View Findings, Lines and Tubes: None. BRAIN AND EXTRA-AXIAL SPACES: No parenchymal hemorrhage, midline shift, or mass effect. Vick-white matter differentiation is wellpreserved. No acute infarct. Ventricles, sulci, and basilar cisterns are normal. No white matter lesions. No subarachnoid hemorrhage. No subdural or epidural collection. CALVARIUM, SKULL BASE, AND SOFT TISSUES: No fractures or suspicious bony lesions. The paranasal sinuses and mastoid air cells are clear. Visualized orbits and globes are intact. The extracranial soft tissues are unremarkable. CERVICAL SPINE: No fracture. No acute osseous abnormalities. Normal alignment. No locked or perched facet. Intervertebral disc spaces and vertebral body heightsare preserved. OTHER BONES: No acute abnormality. CERVICAL SOFT TISSUES AND LUNG APICES: Normal soft tissues. Visualized lung apices are clear. There are endotracheal and enteric tubes. The enteric tube appears to loop on itself. IMPRESSION: No acute abnormality of the head or cervical spine. WSN: [id number] Ordering Physician: Jeannette Kay Dictated By: Smamie Guerra MD Dictated Date/Time: 09/06/22 3:07 pm Reviewed By: Sammie Guerra MD Signed By: Sammie Guerra MD Signed Date/Time: 09/06/22 3:07 pm Transcribed By: MJ Transcribed Date/Time: 09/06/22 2:35 pm * Exam Date Time Procedure Performing Provider Status 09/06/22 2:[address] Head/Brain W/O Contrast Adri Heredia; Modified Notes: (CT Head/Brain W/O Contrast) Reason For Exam: Trauma RESULT: CT Head/Brain W/O Contrast CT Head/Brain W/O Contrast, CT Cervical Spine W/O Contrast INDICATION: Hx of Present Illness: found unresponsive in field; Reason: Trauma; Clinical Question(s): Hematoma TECHNIQUE: Noncontrast head CT using axial technique was reconstructed in axial and coronal planes.Noncontrast spiral CT through the cervical spine was formatted in 3 planes. Automatic tube modulation was used for the cervical spine and iterative dose reconstruction was used for both the head and cervical spine to optimize scan parameters and image quality. CTDIvol Body: 11.90 mGy, DLP Body: 307 mGy*cm. CTDIvol Head: 39.20 mGy, DLP Head: 672 mGy*cm. COMPARISON: 12/21/2015. FINDINGS: Expert Witness View Findings, Lines and Tubes: None. BRAIN AND EXTRA-AXIAL SPACES: No parenchymal hemorrhage, midline shift, or mass effect. Vick-white matter differentiation is wellpreserved. No acute infarct. Ventricles, sulci, and basilar cisterns are normal. No white matter lesions. No subarachnoid hemorrhage. No subdural or epidural collection. CALVARIUM, SKULL BASE, AND SOFT TISSUES: No fractures or suspicious bony lesions. The paranasal sinuses and mastoid air cells are clear. Visualized orbits and globes are intact. The extracranial soft tissues are unremarkable. CERVICAL SPINE: No fracture. No acute osseous abnormalities. Normal alignment. No locked or perched facet. Intervertebral disc spaces and vertebral body heightsare preserved. OTHER BONES: No acute abnormality. CERVICAL SOFT TISSUES AND LUNG APICES: Normal soft tissues. Visualized lung apices are clear. There are endotracheal and enteric tubes. The enteric tube appears to loop on itself. IMPRESSION: No acute abnormality of the head or cervical spine. WSN: [id number] Ordering Physician: Jeannette Kay Dictated By: Sammie Guerra MD Dictated Date/Time: 09/06/22 3:07 pm Reviewed By: Sammie Guerra MD Signed By: Sammie Guerra MD Signed Date/Time: 09/06/22 3:07 pm Transcribed By: MJ Transcribed Date/Time: 09/06/22 2:35 pm Vital Signs Most recent to oldest [Reference Range]: 1 2 3 Height 182 cm (09/06/22 5:26 PM) 182 cm (09/06/22 1:00 PM) Weight 87.1 kg (09/08/22 8:02 AM) 83.9 kg (09/07/22 11:26 AM) 84.5 kg (09/06/22 5:00 PM) Oxygen Saturation [94-100 %] 98 % (09/10/22 7:00 AM) 98 % (09/10/22 6:00 AM) 97 % (09/10/22 5:00 AM) Pulse Rate [55-90 bpm] 118 bpm *H* (09/09/22 2:00 PM) 135 bpm *H* (09/09/22 12:04 PM) 112 bpm *H* (09/09/22 7:54 AM) Body Mass Index [18.5-24.99 kg/m2] 25.51 kg/m2 *H* (09/06/22 5:00 PM) Blood Pressure [90-138/55-84 mm Hg] 116/74mm Hg (09/10/22 8:00 AM) 111/74mm Hg (09/10/22 7:00 AM) 112/76mm Hg (09/10/22 6:00 AM) Respiratory Rate [16-30 br/min] 18 br/min (09/10/22 9:28 AM) 23 br/min (09/10/22 7:00 AM) 18 br/min (09/10/22 6:00 AM) Temperature [96.8-100.4 DegF] 98.0 DegF (09/10/22 12:00 AM) 97.6 DegF (09/09/22 8:00 PM) 98.9 DegF (09/09/22 5:00 PM) Liters per Minute 2 L/min (09/09/22 10:00 AM) 2 L/min (09/09/22 9:00 AM) 4 L/min (09/09/22 8:00 AM) Mode of Delivery (Oxygen) Room air (09/10/22 7:00 AM) Room air (09/10/22 6:00 AM) Room air (09/10/22 5:00 AM) Blood pressure sites Arm, left (09/10/22 7:00 AM) Arm, left (09/10/22 6:00 AM) Arm, left (09/10/22 5:00 AM) Temperature Route Oral (09/10/22 12:00 AM) Oral (09/09/22 8:00 PM) Oral (09/09/22 5:00 PM) Dry Weight 84.5 kg (09/06/22 5:00 PM) 84.5 kg (09/06/22 4:59 PM) 83 kg (09/06/22 1:00 PM) Weight Obtained Via Bed scale (09/08/22 8:02 AM) Bed scale (09/07/22 11:26 AM) Bed scale (09/06/22 5:00 PM) Dry Weight Obtained Via Bed scale (09/06/22 5:00 PM) Bed scale (09/06/22 4:59 PM) Social History Social History Type Response Smoking Status Never smoker entered on: 12/22/13 Sex History and physical note * Christian ROSARIO, Juan C Atwood: PERFORM Event Display: History and Physical Hospital Authored Date: Patient: ??MARY CONTRERAS ? Age:??37 Years?Sex:??Male?:??1985?? 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 He is brought to the emergency room after found unresponsive at [facility]?? Paramedics were told that he has been drinking heavily. In the emergency room, the patient remained unresponsive with a Glascow score of 3.?? He was intubated for airway protection. He underwent a CT of the head as well as chest x-ray and routine lab work.?? Imaging and lab work did not show significant normalities other than alcohol intoxication with an alcohol level 285. I have called his via telephone but unable to reassure.?? She was able to speak with the ICU nurse earlier today, and as per ICU nurse, they have been having marital problems and she has filed for divorce.?? He has been living in rental facilities and has been drinking heavily since the beginning of the pandemic.?? He drinks about 1.75 L of vodka daily.?? Apparently, he has been overusing his psychiatric medications as well. While in the intensive care unit, he became more awake and started moving his extremities and try to remove his ET tube. Currently the patient is sedated on propofol drip, fentanyl drip and Versed drip was just started.?? He remains on mechanical ventilation. Review of Systems Unable to obtain Objective Measurements?? Height: 182 cm (09/06/22) Weight: 84.5 kg (09/06/22) Dry Weight: 84.5 kg (09/06/22) ? Vital Signs?? Temperature: 96.9 DegF (09/06/22 17:01:00) Temperature Route: Axillary (09/06/22 17:01:00) Pulse Rate: 58 bpm (09/06/22 17:30:00) Heart Rate Monitored: 83 bpm (09/06/22 18:03:00) Respiratory Rate: 16 br/min (09/06/22 18:00:00) Vented: Yes (09/06/22 18:00:00) Systolic Blood Pressure: 103 mm Hg (09/06/22 18:00:00) Diastolic Blood Pressure: 79 mm Hg (09/06/22 18:00:00) Mean Arterial Pressure: 90 mm Hg (09/06/22 13:00:00) Pulse Pressure: 24 mm Hg (09/06/22 18:00:00) Oxygen Saturation: 100 % (09/06/22 18:03:00) Mode of Delivery (Oxygen): Ventilator (09/06/22 18:00:00) FiO2: 70 % (09/06/22 18:30:00) Early Warning Score: 5 (09/06/22 18:48:45) ? Physical Exam Constitutional: Sedated,??on mechanical ventilation. Mental Status: Patient sedated??but opens??eyes??to light touch??and verbal stimuli. Head: Normocephalic. Eyes: Pupils are equal, round and reactive to light. Extraocular muscles intact. Ear, Nose and Throat: Oropharynx clear, mucous membranes moist. Ears and nose without masses, lesions or deformities. Trachea midline. Neck:??Facial hair, supple, Full range of motion. Respiratory: Clear to auscultation. No wheezing, rales or rhonchi. Cardiovascular: S1 S2 regular. No murmurs, rubs or gallops. Gastrointestinal:??Obese, abdomen soft, non-tender, non-distended. Normal bowel sounds. No pulsatile mass. No hepatosplenomegaly. Genitourinary: No costovertebral angle tenderness.?? Corado catheter in place. Neurologic: Cranial nerves II-XII grossly intact. No focal neurological deficits. Flexor plantar response. Moves all extremities spontaneously. Sensation intact bilaterally. Skin: No rashes or lesions. No petechiae or purpura.?? Musculoskeletal: No cyanosis or clubbing. No gross deformities. Normal range of motion. Heme/Lymphatics/Immun: Palpation of neck reveals no swelling or tenderness of neck nodes. Palpationof groin reveals no swelling or tenderness of groin nodes. Psychiatric: sedated. Assessment/Plan Diagnoses Alcohol abuse ??(F10.10) Depression ??(F32.A) Narcolepsy ??(G47.419) Unresponsiveness ??(R41.89) ?? Assessment:??This is a 37-year-old man??who was brought??to the emergency room via EMS??after foundunresponsive intoxicated with alcohol. Patient??with Glascow score of 3??and intubated for airway protection??while in the emergency room. ?? Unresponsiveness (R41.89):??He is admitted to the intensive care unit. Patient??more awake now??but remains??on mechanical ventilation??and sedated. Episode of unresponsiveness most likely due to the combination of alcohol abuse??and??possible overdose on psychiatric medications. He will need psychiatric evaluation once extubated. Weaning protocol??as per respiratory??therapist. ?? Alcohol abuse (F10.10):??Patient??heavy alcohol use especially in the last 2 years.??Anticipate possible??severe withdrawal??signs and??symptoms. He will remain??sedated??on??fentanyl drip, Versed and propofol??drips. poultry husbandry worker consult IV fluids with??LR 125 mils per hour ?? Narcolepsy (G47.419):??Psychiatric consult to restart outpatient medication regimen ?? Depression (F32.A):??Psychiatric consult as mentioned above. ?? VTE Prophylaxis:??Bilateral compression boots. Lovenox 40 mg subcu daily ?VTE Prophylaxis Assessment:??VTE Prophylaxis Ordered ?? Code Status:??He is a full code. ?Order Code Status:??Code Status Ordered ?? [...] Gluten free. Tobacco Details:??Use: Never smoker. ? Family History Mother (): Alcoholism; Cancer of stomach; Depression Pat. Grandfather (): CAD - Coronary artery disease; FH: premature coronary heart disease Mat. Grandfather: Cancer of prostate ? Medications Home Medications Armodafinil (Nuvigil 250 mg oral tablet)?1?tab(s)?250?Milligram?By Mouth?Daily Baclofen (baclofen 10 mg oral tablet)?10?Milligram?1?tablet?By Mouth?Daily HydrOXYzine (hydrOXYzine hydrochloride 10 mg oral tablet)?1?tab(s)?10?Milligram?By Mouth?4 times a day Omeprazole (omeprazole 20 mg oral enteric coated capsule)?1?capsule?By Mouth?Daily PEG Electrolyte Solution (Golytely - oral powder for reconstitution)?240?Milliliter?By Mouth?Every 15 minutes?Start at 5pm the night before the procedure drink half Drink the other half 6 hours before procedure Prazosin (prazosin 2 mg oral capsule)?1?capsule?2?Milligram?By Mouth?Daily at bedtime Sodium Oxybate (Xyrem)?4.5?gram?By Mouth?Daily at bedtime?take twice nightly: 1999 and 2229 ? Results Recent Labs BLOOD COUNT & DIFF WBC 5.8 k/mm3 ()?? 09/06/2022 13:38 RBC 3.97 m/mm3 (Low)?? 09/06/2022 13:38 Hgb 12.7 Gm/dL (Low)?? 09/06/2022 13:38 Hct 37.8 % (Low)?? 09/06/2022 13:38 MCV 95.2 femtoliters (High)?? 09/06/2022 13:38 MCH 32.0 pg ()?? 09/06/2022 13:38 MCHC 33.6 g/dL ()?? 09/06/2022 13:38 Platelet Count 128 k/mm3 (Low)?? 09/06/2022 13:38 RDW-SD 42.9 femtoliters ()?? 09/06/2022 13:38 MPV 8.2 femtoliters (Low)?? 09/06/2022 13:38 Nucleated RBC (Automated) 0.0 #/100 WBC'S ()?? 09/06/2022 13:38 Abs. NRBC 0.0 k/mm3 ()?? 09/06/2022 13:38 Abs. Neut 3.9 k/mm3 ()?? 09/06/2022 13:38 Abs. Lymph 1.5 k/mm3 ()?? 09/06/2022 13:38 Abs. Jack 0.3 k/mm3 (Low)?? 09/06/2022 13:38 Abs. Eo 0.0 k/mm3 ()?? 09/06/2022 13:38 Abs. Baso 0.0 k/mm3 ()?? 09/06/2022 13:38 Neut % 67.5 % ()?? 09/06/2022 13:38 Lymph % 25.6 % ()?? 09/06/2022 13:38 Jack % 5.9 % ()?? 09/06/2022 13:38 Eos % 0.2 % ()?? 09/06/2022 13:38 Baso % 0.3 % ()?? 09/06/2022 13:38 Imm Gran 0.5 % ()?? 09/06/2022 13:38 Abs. Imm Gran 0.0 k/mm3 ()?? 09/06/2022 13:38 ?? BLOOD GAS pH 7.38 ()?? 09/06/2022 18:29 pCO2 41 mm Hg ()?? 09/06/2022 18:29 pO2 365 mm Hg (High)?? 09/06/2022 18:29 Bicarbonate, Estimated 25 mmol/L ()?? 09/06/2022 18:29 Specimen Type - Blood Gas ARTERIAL ()?? 09/06/2022 18:29 Percent O2 (FIO2) PRVC 16,440,70% +5 ()?? 09/06/2022 18:29 ?? CHEM GENERAL Sodium 142 mmol/L ()?? 09/06/2022 13:38 Potassium 3.9 mmol/L ()?? 09/06/2022 13:38 Chloride 104 mmol/L ()?? 09/06/2022 13:38 Bicarbonate Level 26 mmol/L ()?? 09/06/2022 13:38 Anion Gap 12 ()?? 09/06/2022 13:38 Glucose Level 121 mg/dL (High)?? 09/06/2022 13:38 BUN 12 mg/dL ()?? 09/06/2022 13:38 Creatinine-Blood 1.2 mg/dL ()?? 09/06/2022 13:38 Estimated GFR Creatinine 77 ML/MIN/1.73 M2 ()?? 09/06/2022 13:38 Calcium 8.2 mg/dL (Low)?? 09/06/2022 13:38 Protein, Total 5.8 Gm/dL (Low)?? 09/06/2022 13:38 Albumin 3.7 Gm/dL ()?? 09/06/2022 13:38 AG Ratio 1.8 ()?? 09/06/2022 13:38 Alkaline Phosphatase 78 units/L ()?? 09/06/2022 13:38 AST (SGOT) 43 units/L (High)?? 09/06/2022 13:38 ALT (SGPT) 38 units/L ()?? 09/06/2022 13:38 Bilirubin, Total 0.5 mg/dL ()?? 09/06/2022 13:38 ?? HEME OTHER Hold Blue Top SPECIMEN DISCARDED AFTER 4 HOURS. ()?? 09/06/2022 13:38 ?? MISC. CHEMISTRY Hold Gel Top SPECIMEN DISCARDED AFTER 1 WEEK ()?? 09/06/2022 13:38 ?? TOXICOLOGY/TDM Ethanol, Serum or Plasma 285 mg/dL (Abnormal)?? 09/06/2022 13:38 Salicylate Level <0.3 mg/dL (Low)?? 09/06/2022 13:38 Barbiturate Screen, Urine NONE DETECTED ()?? 09/06/2022 12:58 Cannabinoid Screen, Urine NONE DETECTED ()?? 09/06/2022 12:58 Cocaine Metabolite Screen, Urine NONE DETECTED ()?? 09/06/2022 12:58 Benzodiazepine Screen, Urine NONE DETECTED ()?? 09/06/2022 12:58 Amphetamine Screen, Urine NONE DETECTED ()?? 09/06/2022 12:58 Opiate Screen, Urine NONE DETECTED ()?? 09/06/2022 12:58 Acetaminophen Level <5 mg/L (Low)?? 09/06/2022 13:38 ?? UA/URINALYSIS Appear/Color, Urine YELLOW ()?? 09/06/2022 13:24 Clarity CLEAR (N)?? 09/06/2022 13:24 Specific [place], Urine >1.030 (High)?? 09/06/2022 13:24 pH, Urine 5.5 ()?? 09/06/2022 13:24 Albumin, Urine 1+ (Abnormal)?? 09/06/2022 13:24 Glucose, Urine NEGATIVE (N)?? 09/06/2022 13:24 Ketones, Urine TRACE (Abnormal)?? 09/06/2022 13:24 Bilirubin, Urine NEGATIVE (N)?? 09/06/2022 13:24 Hemoglobin, Urine NEGATIVE (N)?? 09/06/2022 13:24 Nitrite, Urine NEGATIVE (N)?? 09/06/2022 13:24 Leukocyte, Urine NEGATIVE (N)?? 09/06/2022 13:24 Urobilinogen NORMAL mg/dL (N)?? 09/06/2022 13:24 WBC's, Urine 1 /HPF ()?? 09/06/2022 13:24 RBC's, Urine NONE SEEN /HPF ()?? 09/06/2022 13:24 Hyaline Cast 2 LPF ()?? 09/06/2022 13:24 Mucus SLIGHT /LPF ()?? 09/06/2022 13:24 Hold Urine Culture Testing available 48 hours from time of collection. ()?? 09/06/2022 13:24 ?? VIROLOGY COVID-19 by RT-PCR NEGATIVE ()?? 09/06/2022 13:24 ? Imaging(s) ?CT Head/Brain W/O Contrast ?? 09/06/2022 14:25??by Sammie Guerra MD ?IMPRESSION: ?? No acute abnormality of the head or cervical spine. ?Chest Portable ?? 09/06/2022 14:26??by Sammie Guerra MD ?IMPRESSION: ?? There is an enteric tube which loops on itself at the mid to distal esophagus. Repositioning is recommended. ? Microbiology(s) ?COVID-19 by RT-PCR ?? 09/06/2022 13:24 ?Negative ? EKG study * Event Display: ECG 12-Lead Authored Date: Please click on pdf link to open report * Event Display: ECG 12-Lead Authored Date: Ventricular Rate: 121 BPM Atrial Rate: 121 BPM P-R Interval: 98 ms QRS Duration: 64 ms Q-T Interval: 386 ms QTC Calculation(Bazett): 548 ms P Blunt: 57 degrees R Blunt: 4 degrees T Blunt: 22 degrees Sinus tachycardia with short MO with Premature supraventricular complexes Otherwise normal ECG When compared with ECG of 09-SEP-2022 03:36, Premature supraventricular complexes are now Present MO interval has decreased Vent. rate has increased BY 59 BPM T wave amplitude has decreased in Lateral leads Confirmed by CONNER SANTOS ([id number]) on 09/09/2022 11:29:59 AM [place]: CONNER SANTOS * Event Display: ECG 12-Lead Authored Date: [id number] Please click on pdf link to open report * Event Display: ECG 12-Lead Authored Date: [id number] Ventricular Rate: 62 BPM Atrial Rate: 62 BPM P-R Interval: 162 ms QRS Duration: 86 ms Q-T Interval: 618 ms QTC Calculation(Bazett): 627 ms P Blunt: 41 degrees R Blunt: 6 degrees T Blunt: 13 degrees Normal sinus rhythm Prolonged QT Abnormal ECG When compared with ECG of 06-SEP-2022 13:57, T wave amplitude has increased in Anterior leads QT has lengthened Confirmed by CONNER SANTOS ([id number]) on 09/09/2022 8:55:49 AM [place]: CONNER SANTOS * Event Display: ECG 12-Lead Authored Date: [id number] Please click on pdf link to open report * Event Display: ECG 12-Lead Authored Date: [id number] Ventricular Rate: 55 BPM Atrial Rate: 55 BPM P-R Interval: 136 ms QRS Duration: 90 ms Q-T Interval: 484 ms QTC Calculation(Bazett): 463 ms P Blunt: 34 degrees R Blunt: 33 degrees T Blunt: 23 degrees Sinus bradycardia Otherwise normal ECG No previous ECGs available Confirmed by CONNER SANTOS ([id number]) on 09/07/2022 8:28:28 AM [place]: CONNER SANTOS [facility] Progress note * Kamlesh Cazares RN: MODIFY, SIGN, VERIFY, PERFORM Event Display: [facility] Authored Date: [id number] Patient: MARY CONTRERAS Age: 37 years Sex: Male : 1985 Associated Diagnoses: None Author: Kamlesh Cazares RN Findings Narrative/Incidental took over care for patient at 0700, received report from Daya Mcelroy RN. Patient is alert and oriented, he has been independently ambulating in his room. He has denied any pain, dizziness or nausea. Lungs are clear with no shortness of breath on room air. occasional cough producing clear liquid with minimal blood. physical assessment otherwise within normal limits for patient. Discharge completed with no further questions. . * Kimberlyn Stephenson RN: PERFORM, SIGN, VERIFY Event Display: Progress Note Hospital Authored Date: Patient: MARY CONTRERAS Age: 37 years Sex: Male : 1985 Associated Diagnoses: None Author: Kimberlyn Stephenson RN Findings Problem Related to Alteration in Fluid Electrolyte : Alteration in Fluid Electrolyte Func/new 09/09/2022 20:00 EST Alteration Fluid Electrolytes Related to Electrolyte Imbalance Goals & Outcomes, Fluid/Electrolyte Vital signs, electrolytes & glucose levels will stabilize, Pt will maintain adequate GI/ function appropriate for pt, Pt will maintain skin turgor, Pt will resume/maintain adequate cardiac output, Pt will resume/maintain adequate hemodynamic status Interventions, Fluid Electrolyte monitor cardiac status, monitor dietary intake, Monitor effects ofdiuretics, monitor effects of intravenous fluid, monitor for onset of acute bleeding, monitor for s/s of anemia: weakness, fatigue,, monitor for s/s of hyper/hypokalemia, monitor for s/s of hypo or hyperglycemia, monitor GI/ status, monitor hydration status, monitor mucous membranes, monitor perip heral pulses, monitor skin turgor, temperature & capillary refill, Encourage & assist with increased activity as pt tolerates, Encourage oral intake of meals, snacks, supplements, Encourage oral intake/fluids as ordered, Maintain strict intake & output, Monitor & document daily weight, Teach Pt/caregiver cause of imbalance & corrective therapy Goals/Interventions,Fluid Electrolyte Yes Fluid Electrolyte, Problem Start 09/09/2022 20:00 Reviewed plan with, Fluid Electrolyte Patient Patient Progression, Fluid Electrolyte Pt progressing according to plan . Alteration in Psychosocial : Alteration in Psychosocial Function/new 09/09/2022 20:00 EST Alteration in Psychosocial Related to Acute Alcohol Withdrawal, Substance abuse Goals & Outcomes, Psychosocial Psychosocial support will be provided to Pt/S.O. as needed, Pt will identify stressors leading up to event, Pt/caregiver will maintain/obtain psychological stability, Pt successfully withdraws with minimal side effects, Pt will be free from withdrawal symptoms, Ptwill detoxify from substance, Pt will show motivation for recovery, Pt will verbalize disease concept & chemical dependency, Pt will be monitored for suicidal ideation Interventions, Psychosocial Assess psychosocial needs, Assess readiness to learn needed lifestyle changes, Assess/monitor level of consciousness, Evaluate resources & support system available to pt, Provide a calm, supportive environment, Provide chances to express concerns/emotions/expectations, Provide information about illness and recovery, Provide verbal limits if pt's behavior escalates,Identify complications of chronic alcohol use, Assess for complications related to acute alcohol withdrawal, Determine pt's stage of withdrawal as per CIWA scale, Minimize stimulation, Minimize stressors, Monitor hygiene & nutritional intake Goals/Interventions, Psychosocial Yes Psychosocial, Problem Start 09/07/2022 8:00 Reviewed Plan with, Psychosocial Patient Patient Progression, Psychosocial Pt progressing according to plan . Narrative/Incidental Alert and oriented; able to appropriately carry a conversation with staff. CIWA 4-6 so far this shift. Morris remains on scheduled po clonidine for withdrawal symptom management. Home med Xyrem is not in formulary nor ordered at this time; Morris asked for a sleep agent to assist in his rest tonight. Monserrat Velazquez NP notified and 0.5 mg po ativan ordered and given. Morris has been able to sleep a few hours cecilia time since. Nocturnal CPAP ordered and he has been compliant with the therapy. HR 60s-80s while asleep, 90s-110s while awake, and 120s-130s while standing and ambulating to the bathroom. BP remains stable with SBP >95 and MAP >65. Voiding well in the bathroom or urinal. Did have 1 loose BM this shift but declined immodium at thetime of offering. Does try to get OOB independently and will not ring for assistance. Bed alarm on for safety. Once he is up and standing out of bed, he ambulates steadily. Requires help with cardiac and monitor wires. PT consult ordered. Morris anticipates DC soon. . * Bernarda Perkins RN: MODIFY, SIGN, VERIFY, PERFORM Event Display: Progress Note Hospital Authored Date: Patient: MARY CONTRERAS Age: 37 years Sex: Male : 1985 Associated Diagnoses: None Author: Bernarda Perkins RN Findings Narrative/Incidental cared for patient from 3p-7p. chronic thoracic spine pain per patient. denied need for any interventions at this time. alert, oriented, calm, cooperative, appropriate at this time. mild tremors of hands/arms when using them. CIWA 5 for tremors and mild anxiety reported. given clonidine as orderedwith seemingly good effect. occasional non productive cough and mild dyspnea/tachypnea with exertion . remains on telemetry in sinus tachycardia 100-120'sbpm at rest, and 140'sbpm with activity standing out of bed. denies any cardiac symptoms. tolerating regular diet well with a light amount of nausea after eating 100% of dinner, but no emesis and good effect from zofran. voided 300cc urine (&more later) in urinal post-catheter removal with no issues. multi episodes of diarrhea today that seem to have slowed down since administration of lomotil. K+ 3.4; given 40meq ER potassium as ordered. mild weakness and legs shaky/tremulous when standing requiring a 1-person stand by assist. No s/s of vte. Educated on risk for VTE; wearing SCD-boots as ordered. moving self around in bed frequentlywith ease. bed alarm on for extra safety as he is intermittently impulsive. full report given to next shift RN at change of shift.. Note * Kamlesh Cazares RN: PERFORM Event Display: Discharge/Transfer Note Hospital Authored Date: [id number] Nursing Discharge Note Entered On: 09/10/2022 12:50 EST Performed On: 09/10/2022 12:49 EST by Kamlesh Cazares RN Nursing Discharge Note 2 Discharge Time : 09/10/2022 12:49 EST Discharge Level of Care at Discharge : Home/Senior Care/Foster Care Patient Left Unit Via : Ambulatory Patient Accompanied Off Unit with : Responsible adult DC Instructions Provided & Signed by Pt : Yes Patient Understands D/C Instructions : Yes Patient Instructions Discharge Signed : Yes Did Pt have Specialty Bed or Wound Vac : No Kamlesh Cazares RN - 09/10/2022 12:49 EST * Rickey Horton MD: PERFORM Event Display: Discharge/Transfer Note Hospital Authored Date: [id number] Patient: ??CONTRERAS, MARY ? Age:??37 Years?Sex:??Male?:??1985?? Patient Information Discharge Location: [facility] Primary Care Physician: Galina HOSKINS, Ryanne Donovan Admit Date/Time: 09/06/22 15:34 Discharge Disposition Discharge Disposition: Home: No Services Discharge Diagnosis Acute respiratory failure with hypoxia (J96.01) Alcohol abuse (F10.10) Alcohol intoxication (F10.929) Alcohol use disorder, mild, abuse (F10.10) Alcohol withdrawal (F10.239) Alcohol withdrawal (F10.939) Depression (F32.A) Hypokalemia (E87.6) Hypomagnesemia (E83.42) Narcolepsy (G47.419) Toxic metabolic encephalopathy (G92.8) Unresponsiveness (R41.89) ?? _ Discharge Medications Armodafinil (Nuvigil 250 mg oral tablet)?1?tab(s)?250?Milligram?By Mouth?Daily Baclofen (baclofen 10 mg oral tablet)?10?Milligram?1?tablet?By Mouth?Daily HydrOXYzine (hydrOXYzine hydrochloride 10 mg oral tablet)?1?tab(s)?10?Milligram?By Mouth?4 times a day Omeprazole (omeprazole 20 mg oral enteric coated capsule)?1?capsule?By Mouth?Daily Prazosin (prazosin 2 mg oral capsule)?1?capsule?2?Milligram?By Mouth?Daily at bedtime ? Allergies Allergies ?(Active and Proposed Allergies Only) NKA? (Severity: Unknown severity, Onset: Unknown) ? Future Appointments Thursday 2:00 PM EST ?? With: Drew HOSKINS, Kaylyn Ansari Where: [address] [place] [address]- Objective Assessment and Plan Assessment:??37-year-old male past medical history of narcolepsy, CONG, MDD,??alcohol dependence??presents to the emergency room??unresponsive brought in by EMS found by a roommate.??The patient was intubated for airway protection.??He was extubated in less than 24 hours.??It was determined??that the patient had??an overdose on combination of??alcohol and??his sodium oxybate for his narcolepsy. ?? Acute respiratory failure with hypoxia (J96.01): . Unresponsiveness (R41.89): . Alcohol withdrawal (F10.239): . Alcohol intoxication (F10.929): . Toxic metabolic encephalopathy (G92.8): ?Patient absolutely denies suicidal ideation or intent. ??Patient was extubated in the afternoon of 09/07, and his course was complicated by acute hypoxemic respiratory failure requiring transient BiPAP. The patient did not require antibiotic therapy. He was loaded with phenobarbital and??Precedex for total of 12 hours. His CIWA??monitoring was discontinued due to improvement in his clinical course. ? Hypokalemia (E87.6): . Hypomagnesemia (E83.42): ?Repleted ? Alcohol use disorder, mild, abuse (F10.10): ?Patient apparently has been drinking heavily for several months and is likely to have severe alcohol withdrawal. Social work consult appreciated.??It appears patient has ongoing stressors??outside of the hospitalincluding divorce and possible custody regalado of his??child. ? Depression (F32.A): ?? Patient initially required a constant tomato grader and was on suicide precautions. After further interview??patient with no??plan??or intent at this time. His??suicide precautions and constant companionwere discontinued ? Narcolepsy (G47.419): ?Previously on armodafinil and sodium oxybate for sleep regulation Would not continue sodium oxybate??due to potential of abuse. ? Measurements?? Height: 182 cm (09/06/22) Weight: 87.1 kg (09/08/22) Dry Weight: 84.5 kg (09/06/22) Body Mass Index:??25.51 kg/m2??High (09/06/22) ? Vital Signs?? Temperature: 98 DegF (09/10/22 00:00:00) Temperature Route: Oral (09/10/22 00:00:00) Pulse Rate:??118 bpm??High (09/09/22 14:00:00) Heart Rate Monitored: 80 bpm (09/10/22 07:00:00) Respiratory Rate: 18 br/min (09/10/22 09:28:00) Vented: No (09/10/22 07:00:00) Systolic Blood Pressure: 116 mm Hg (09/10/22 08:00:00) Diastolic Blood Pressure: 74 mm Hg (09/10/22 08:00:00) Blood pressure sites: Arm, left (09/10/22 07:00:00) Pulse Pressure: 42 mm Hg (09/10/22 08:00:00) Oxygen Saturation: 98 % (09/10/22 07:00:00) Mode of Delivery (Oxygen): Room air (09/10/22 07:00:00) FiO2: 21 % (09/10/22 08:10:00) Early Warning Score: 6 (09/10/22 09:28:58) ? . Physical Exam Constitutional: Alert, in no distress. Mental Status: Oriented to person, place and time. Head: Normocephalic. Eyes: Pupils are equal, round and reactive to light. Extraocular muscles intact. Ear, Nose and Throat: Oropharynx clear, mucous membranes moist. Ears and nose without masses, lesions or deformities. Trachea midline. Neck: Supple, Full range of motion. Respiratory: Clear to auscultation. No wheezing, rales or rhonchi. Cardiovascular: S1 S2 regular. No murmurs, rubs or gallops. Gastrointestinal: Abdomen soft, non-tender, non-distended. Normal bowel sounds. No pulsatile mass. No hepatosplenomegaly. Genitourinary: No costovertebral angle tenderness. Neurologic: Cranial nerves II-XII grossly intact. No focal neurological deficits. Flexor plantar response. Moves all extremities spontaneously. Sensation intact bilaterally. Skin: No rashes or lesions. No petechiae or purpura.?? Musculoskeletal: No cyanosis or clubbing. No gross deformities. Normal range of motion. Heme/Lymphatics/Immun: Palpation of neck reveals no swelling or tenderness of neck nodes. Palpationof groin reveals no swelling or tenderness of groin nodes. Psychiatric: Normal mood and affect Pending Results Blood Culture ordered on 09/08/2022 Blood Culture #2 ordered on 09/08/2022 Follow-Up Appointments Added Follow Up ?Time Frame ?Comments Galina HOSKINS, Ryanne Donovan Post Discharge Care Diet: Regular Diet Discharge ?09/10/22 8:39:00 EST Home Health Face to Face ^HomeHealthFTF Results Discharge Labs BLOOD COUNT & DIFF WBC 5.4 k/mm3 ()?? 09/10/2022 04:27 RBC 3.70 m/mm3 (Low)?? 09/10/2022 04:27 Hgb 11.9 Gm/dL (Low)?? 09/10/2022 04:27 Hct 34.6 % (Low)?? 09/10/2022 04:27 MCV 93.5 femtoliters ()?? 09/10/2022 04:27 MCH 32.2 pg ()?? 09/10/2022 04:27 MCHC 34.4 g/dL ()?? 09/10/2022 04:27 Platelet Count 129 k/mm3 (Low)?? 09/10/2022 04:27 RDW-SD 41.1 femtoliters ()?? 09/10/2022 04:27 MPV 9.2 femtoliters (Low)?? 09/10/2022 04:27 Nucleated RBC (Automated) 0.0 #/100 WBC'S ()?? 09/10/2022 04:27 Abs. NRBC 0.0 k/mm3 ()?? 09/10/2022 04:27 Abs. Neut 5.0 k/mm3 ()?? 09/09/2022 03:42 Abs. Lymph 1.1 k/mm3 ()?? 09/09/2022 03:42 Abs. Jack 0.5 k/mm3 ()?? 09/09/2022 03:42 Abs. Eo 0.1 k/mm3 ()?? 09/09/2022 03:42 Abs. Baso 0.0 k/mm3 ()?? 09/09/2022 03:42 Neut % 74.5 % ()?? 09/09/2022 03:42 Lymph % 15.8 % ()?? 09/09/2022 03:42 Jack % 8.0 % ()?? 09/09/2022 03:42 Eos % 1.2 % ()?? 09/09/2022 03:42 Baso % 0.1 % ()?? 09/09/2022 03:42 Imm Gran 0.4 % ()?? 09/09/2022 03:42 Abs. Imm Gran 0.0 k/mm3 ()?? 09/09/2022 03:42 ?? BLOOD GAS pH 7.43 ()?? 09/08/2022 05:47 pCO2 40 mm Hg ()?? 09/08/2022 05:47 pO2 67 mm Hg (Low)?? 09/08/2022 05:47 Bicarbonate, Estimated 26 mmol/L ()?? 09/08/2022 05:47 Specimen Type - Blood Gas ARTERIAL ()?? 09/08/2022 05:47 Percent O2 (FIO2) 100% ()?? 09/08/2022 05:47 % O2 Saturation (% Oxy Hgb) 92 % (Low)?? 09/08/2022 05:47 Methemoglobin % 1.1 % ()?? 09/08/2022 05:47 CO% (Carboxyhemoglobin Arterial) 1 ()?? 09/08/2022 05:47 ? CHEM GENERAL Sodium 135 mmol/L ()?? 09/10/2022 04:27 Potassium 3.3 mmol/L (Low)?? 09/10/2022 04:27 Chloride 99 mmol/L ()?? 09/10/2022 04:27 Bicarbonate Level 27 mmol/L ()?? 09/10/2022 04:27 Anion Gap 9 ()?? 09/10/2022 04:27 Glucose Level 110 mg/dL (High)?? 09/10/2022 04:27 BUN 5 mg/dL (Low)?? 09/10/2022 04:27 Creatinine-Blood 0.9 mg/dL ()?? 09/10/2022 04:27 Estimated GFR Creatinine 109 ML/MIN/1.73 M2 ()?? 09/10/2022 04:27 Calcium 8.3 mg/dL (Low)?? 09/10/2022 04:27 Phosphorus 1.8 mg/dL (Low)?? 09/10/2022 04:27 Magnesium 1.8 mg/dL ()?? 09/10/2022 04:27 Protein, Total 5.8 Gm/dL (Low)?? 09/06/2022 13:38 Albumin 3.7 Gm/dL ()?? 09/06/2022 13:38 AG Ratio 1.8 ()?? 09/06/2022 13:38 Alkaline Phosphatase 78 units/L ()?? 09/06/2022 13:38 AST (SGOT) 43 units/L (High)?? 09/06/2022 13:38 ALT (SGPT) 38 units/L ()?? 09/06/2022 13:38 Bilirubin, Total 0.5 mg/dL ()?? 09/06/2022 13:38 ? FLUID STUDIES Hold Other SPECIMEN DISCARDED AFTER 1 WEEK ()?? 09/08/2022 13:53 ? HEME OTHER Hold Blue Top SPECIMEN DISCARDED AFTER 4 HOURS. ()?? 09/06/2022 13:38 ? MISC. CHEMISTRY Procalcitonin 0.11 ng/mL ()?? 09/07/2022 17:49 Hold Gel Top SPECIMEN DISCARDED AFTER 1 WEEK ()?? 09/07/2022 17:49 ?? TOXICOLOGY/TDM Ethanol, Serum or Plasma 285 mg/dL (Abnormal)?? 09/06/2022 13:38 Salicylate Level <0.3 mg/dL (Low)?? 09/06/2022 13:38 Barbiturate Screen, Urine NONE DETECTED ()?? 09/06/2022 12:58 Cannabinoid Screen, Urine NONE DETECTED ()?? 09/06/2022 12:58 Cocaine Metabolite Screen, Urine NONE DETECTED ()?? 09/06/2022 12:58 Benzodiazepine Screen, Urine NONE DETECTED ()?? 09/06/2022 12:58 Amphetamine Screen, Urine NONE DETECTED ()?? 09/06/2022 12:58 Opiate Screen, Urine NONE DETECTED ()?? 09/06/2022 12:58 Acetaminophen Level <5 mg/L (Low)?? 09/06/2022 13:38 Phenobarb Level 17.5 mg/L ()?? 09/07/2022 17:49 ?? UA/URINALYSIS Appear/Color, Urine YELLOW ()?? 09/06/2022 13:24 Clarity CLEAR (N)?? 09/06/2022 13:24 Specific [place], Urine >1.030 (High)?? 09/06/2022 13:24 pH, Urine 5.5 ()?? 09/06/2022 13:24 Albumin, Urine 1+ (Abnormal)?? 09/06/2022 13:24 Glucose, Urine NEGATIVE (N)?? 09/06/2022 13:24 Ketones, Urine TRACE (Abnormal)?? 09/06/2022 13:24 Bilirubin, Urine NEGATIVE (N)?? 09/06/2022 13:24 Hemoglobin, Urine NEGATIVE (N)?? 09/06/2022 13:24 Nitrite, Urine NEGATIVE (N)?? 09/06/2022 13:24 Leukocyte, Urine NEGATIVE (N)?? 09/06/2022 13:24 Urobilinogen NORMAL mg/dL (N)?? 09/06/2022 13:24 WBC's, Urine 1 /HPF ()?? 09/06/2022 13:24 RBC's, Urine NONE SEEN /HPF ()?? 09/06/2022 13:24 Hyaline Cast 2 LPF ()?? 09/06/2022 13:24 Mucus SLIGHT /LPF ()?? 09/06/2022 13:24 Hold Urine Culture Testing available 48 hours from time of collection. ()?? 09/06/2022 13:24 ? VIROLOGY COVID-19 by RT-PCR NEGATIVE ()?? 09/06/2022 13:24 COVID-19 PCR Specimen Source NASAL ()?? 09/08/2022 05:46 COVID-19 PCR Result NEGATIVE ()?? 09/08/2022 05:46 ? Blood Glucose Trend Glucose Level:??110 mg/dL??High (09/10/22 04:27:00) ? Microbiology ?? COVID-19 (Novel Coronavirus), Rapid PCR?? Completed?? Source: Nasal Body Site: Nose Collected Dt/Tm: 09/06/2022 13:24 Last Updated Dt/Tm: 09/06/2022 14:17 COVID-19 (2019 Novel Coronavirus) PCR?? Completed?? Source: Nasal Body Site: Nose Collected Dt/Tm: 09/08/2022 05:46 Last Updated Dt/Tm: 09/09/2022 12:13 ? 35??minutes spent on discharge * Sage VERGARA, Kamlesh Atwood: PERFORM Event Display: Patient Education/Instruction Authored Date: Inpatient [place] [address] Name: MARY CONTRERAS : 1985 Visit: 09/06/2022 15:34:00 Current Date: 09/10/2022 12:11 Account: [id number] Inpatient Adult Discharge Instructions We would like [...] and their families. Surveys are administered by [employer] ?? If further treatment with your primary care physician or another doctor is recommended, it is important for you to keep the appointment. Call your primary care physician or return to the Emergency Department immediately if your condition worsens, fails to improve, or new symptoms develop. If you need to find a doctor, you can call [facility] for a referral at [phone] or toll free at [phone] [email or web address] ([phone]) or log in to [email or web address].. ?? You can view and manage your care through the patient portal or by using a health care gasper of your choosing. [employer] is a website that allows you to securely view your medical information including your hospital discharge summary, office visit summaries, medications and follow-up visits. You can also request appointments, renew medications, and request access to your medical information using a health care gasper of your choosing, or just ask a question. You can enroll at [email or web address] or register during your next office visit. You have been discharged from [facility], Patient Care Unit: [facility]. If you have any questions regarding these instructions after you leave, please call us and we will be happy to assist you. [facility] Your Care Team Attending Physician Rickey Horton MD Discharging Providers Rickey Horton MD Reason for Admission unconcious, beligerent when wakes Your Diagnosis Unresponsiveness Alcohol abuse Narcolepsy Depression Toxic metabolic encephalopathy Acute respiratory failure with hypoxia Alcohol withdrawal Alcohol intoxication Alcohol use disorder, mild, abuse Alcohol withdrawal Hypokalemia Hypomagnesemia Tests Performed Below is a partial list of the tests performed during your hospitalization. You may have had other tests and procedures not included in this list. Please discuss all test results with your provider. ABG ACETAMINOPHEN Alcohol Level Amphetamine Urine Screen Barbiturate Urine Screen Basic Metabolic Panel Benzodiazepine Urine Screen BUN Calcium Level Cannabinoid Urine Screen Carboxyhemoglobin Arterial CBC CBC w/ Differential Cocaine Urine Screen Comprehensive Metabolic Panel COVID-19 (2019 Novel Coronavirus) PCR COVID-19 (Novel Coronavirus), Rapid PCR Creatinine Electrolytes Glucose Level HOLD BLUE TUBE HOLD GEL TUBE HOLD OTHER TUBE Magnesium Level Methemoglobin Quant Opiate Screen Urine Oxygen Saturation Phenobarbital Level Phosphorus Level PROCALCITONIN, SERUM SALICYLATE Urinalysis w/hold for Urine Culture URINE MICROSCOPIC CT Cervical Spine W/O Contrast CT Head/Brain W/O Contrast XR Chest Portable Primary Care Provider Galina HOSKINS, Ryanne Donovan Advance Directive Health Care Proxy on File Yes - Health Care Proxy No qualifying data available. Discharge Vitals Temperature: 98 DegF Height: 182 cm Pulse Rate:??118 bpm??High Weight: 87.1 kg Respiratory Rate: 18 br/min Body Mass Index:??25.51 kg/m2??High Systolic Blood Pressure: 116 mm Hg Body surface area: 2.07 Diastolic Blood Pressure: 74 mm Hg ?? Oxygen Saturation: 98 % ?? Studies Pending All tests and labs ordered during this hospital stay have been completed unless listed below. Please discuss all pending results with your provider listed above in these instructions. ?? Blood Culture Blood Culture #2 What to do next Instructions From Your Doctor Discharge Orders Diet:??Regular Diet Scheduled Follow-Up Appointments Thursday 2:00 PM EST ?? With: Drew HOSKINS, Kaylyn Graylotte Where: [facility] [address] [place] [address] Drive [address] [place] [address]- You Need to Schedule the Following Appointments Follow Up with??Galina HOSKINS, Ryanne Donovan When?? Where: [address] [place] [id number]- Discharge Medications MARY CONTRERAS :1985 Visit Date:09/06/2022 Medications: Please continue your medications until treatment is completed or stopped by your provider. Medications not listed below should be discontinued. Discuss any questions related to medications with your provider. What How Much When Instructions Next Dose Unchanged Armodafinil (Nuvigil 250 mg oral tablet) 1 tab(s) Oral Daily resume as at home Unchanged Baclofen (baclofen 10 mg oral tablet) 1 tab(s) Oral Daily resume as at home Unchanged HydrOXYzine (hydrOXYzine hydrochloride 10 mg oral tablet) 1 tab(s) Oral 4 times a day resume as at home Unchanged Omeprazole (omeprazole 20 mg oral enteric coated capsule) 1 capsule Oral Daily resume as at home Unchanged Prazosin (prazosin 2 mg oral capsule) 1 capsule Oral Daily at Bedtime resume as at home ?? What How Much When Comments Stop Taking Sodium Oxybate (Xyrem) 4.5 gram Oral Daily at Bedtime take twice nightly: 1999 and 2229 ?? Test Results Below is a partial list of the most recent Laboratory test results done prior to this discharge. You may have had other tests and procedures not included in this list. Please discuss all test resultswith your provider. ABG (09/08/2022) ???pH - 7.43???pCO2 - 40 mm Hg???pO2 - 67 mm Hg???Bicarbonate, Estimated - 26 mmol/L???Specimen Type - Blood Gas - ARTERIAL???Percent O2 (FIO2) - 100% ACETAMINOPHEN (09/06/2022) ? ?Acetaminophen Level - <5 mg/L Alcohol Level (09/06/2022) ???Ethanol, Serum or Plasma - 285 mg/dL Amphetamine Urine Screen (09/06/2022) ???Amphetamine Screen, Urine - NONE DETECTED Barbiturate Urine Screen (09/06/2022) ???Barbiturate Screen, Urine - NONE DETECTED Basic Metabolic Panel (09/10/2022) ???Sodium - 135 mmol/L???Potassium - 3.3 mmol/L???Chloride - 99 mmol/L???Bicarbonate Level - 27 mmol/L???Anion Gap - 9???Glucose Level - 110 mg/dL???BUN - 5 mg/dL???Creatinine-Blood - 0.9 mg/dL???Estimated GFR Creatinine - 109 ML/MIN/1.73 M2???Calcium - 8.3 mg/dL Benzodiazepine Urine Screen (09/06/2022) ???Benzodiazepine Screen, Urine - NONE DETECTED BUN (09/07/2022) ???BUN - 11 mg/dL Calcium Level (09/07/2022) ???Calcium - 8.1 mg/dL Cannabinoid Urine Screen (09/06/2022) ???Cannabinoid Screen, Urine - NONE DETECTED Carboxyhemoglobin Arterial (09/08/2022) ???CO% (Carboxyhemoglobin Arterial) - 1 CBC (09/10/2022) ???WBC - 5.4 k/mm3???RBC - 3.70 m/mm3???Hgb - 11.9 Gm/dL???Hct - 34.6 %???MCV - 93.5 femtoliters???MCH - 32.2 pg???MCHC - 34.4 g/dL???Platelet Count - 129 k/mm3???RDW-SD - 41.1 femtoliters???MPV - 9.2 femtoliters???Nucleated RBC (Automated) - 0.0 #/100 WBC'S???Abs. NRBC - 0.0 k/mm3 CBC w/ Differential (09/09/2022) ???WBC - 6.8 k/mm3???RBC - 4.17 m/mm3???Hgb - 13.3 Gm/dL???Hct - 38.0 %???MCV - 91.1 femtoliters???MCH - 31.9 pg???MCHC - 35.0 g/dL???Platelet Count - 118 k/mm3???RDW-SD - 38.6 femtoliters???MPV - 9.8 femtoliters???Nucleated RBC (Automated) - 0.0 #/100 WBC'S???Abs. NRBC - 0.0 k/mm3???Abs. Neut - 5.0 k/mm3???Abs. Lymph - 1.1 k/mm3???Abs. Jack - 0.5 k/mm3???Abs. Eo - 0.1 k/mm3???Abs. Baso - 0.0 k/mm3???Neut % - 74.5 %???Lymph % - 15.8 %???Jack % - 8.0 %???Eos % - 1.2 %???Baso % - 0.1 %???Imm Gran- 0.4 %???Abs. Imm Gran - 0.0 k/mm3 Cocaine Urine Screen (09/06/2022) ???Cocaine Metabolite Screen, Urine - NONE DETECTED Comprehensive Metabolic Panel (09/06/2022) ???Sodium - 142 mmol/L???Potassium - 3.9 mmol/L???Chloride - 104 mmol/L???Bicarbonate Level - 26 mmol/L???Anion Gap - 12???Glucose Level - 121 mg/dL???BUN - 12 mg/dL???Creatinine-Blood - 1.2 mg/dL???Estimated GFR Creatinine - 77 ML/MIN/1.73 M2???Calcium - 8.2 mg/dL???Protein, Total - 5.8 Gm/dL???Albumin - 3.7 Gm/dL???AG Ratio - 1.8???Alkaline Phosphatase - 78 units/L???AST (SGOT) - 43 units/L???ALT (SGPT) - 38 units/L???Bilirubin, Total - 0.5 mg/dL COVID-19 (2019 Novel Coronavirus) PCR (09/08/2022) ???COVID-19 PCR Specimen Source - NASAL???COVID-19 PCR Result - NEGATIVE COVID-19 (Novel Coronavirus), Rapid PCR (09/06/2022) ???COVID-19 by RT-PCR - NEGATIVE Creatinine (09/07/2022) ???Creatinine-Blood - 1.0 mg/dL???Estimated GFR Creatinine - 96 ML/MIN/1.73 M2 Electrolytes (09/09/2022) ???Sodium - 131 mmol/L???Potassium - 3.4 mmol/L???Chloride - 95 mmol/L???Bicarbonate Level - 28 mmol/L???Anion Gap - 8 Glucose Level (09/07/2022) ???Glucose Level - 88 mg/dL HOLD BLUE TUBE (09/06/2022) ???Hold Blue Top - SPECIMEN DISCARDED AFTER 4 HOURS. HOLD GEL TUBE (09/07/2022) ???Hold Gel Top - SPECIMEN DISCARDED AFTER 1 WEEK HOLD OTHER TUBE (09/08/2022) ???Hold Other - SPECIMEN DISCARDED AFTER 1 WEEK Magnesium Level (09/10/2022) ???Magnesium - 1.8 mg/dL Methemoglobin Quant (09/08/2022) ???Methemoglobin % - 1.1 % Opiate Screen Urine (09/06/2022) ???Opiate Screen, Urine - NONE DETECTED Oxygen Saturation (09/08/2022) ???% O2 Saturation (% Oxy Hgb) - 92 % Phenobarbital Level (09/07/2022) ???Phenobarb Level - 17.5 mg/L Phosphorus Level (09/10/2022) ???Phosphorus - 1.8 mg/dL PROCALCITONIN, SERUM (09/07/2022) ???Procalcitonin - 0.11 ng/mL SALICYLATE (09/06/2022) ? ?Salicylate Level - <0.3 mg/dL Urinalysis w/hold for Urine Culture (09/06/2022) ? ?Appear/Color, Urine - YELLOW? ?Clarity - CLEAR? ?Specific [place], Urine - >1.030? ?pH, Urine- 5.5???Albumin, Urine - 1+???Glucose, Urine - NEGATIVE???Ketones, Urine - TRACE???Bilirubin, Urine- NEGATIVE???Hemoglobin, Urine - NEGATIVE???Nitrite, Urine - NEGATIVE???Leukocyte, Urine - NEGATIVE? ??Urobilinogen - NORMAL???Hold Urine Culture - Testing available 48 hours from time of collection. URINE MICROSCOPIC (09/06/2022) ???WBC's, Urine - 1 /HPF???RBC's, Urine - NONE SEEN???Hyaline Cast - 2 LPF???Mucus - SLIGHT Allergies (NKA means No Known [...] Belongings I fully understand and agree that [facility] accepts no responsibility for all my personal [...] to send valuables and belongings home. ?? No Valuables/Belongings: No valuables/belongings present Review of Valuable and Belonging List: With patient, With witness Disposition of Belongings: Sent home with patient/family Possessions released to: given to pt. ??Security zara in room with pt. locked belongings, cards, keys Date for Pt to Sign Valuables/Belongings: 09/08/22 17:49:00 ?? Other Discharge Information ? Pulmonary Rehab Status?? Pulmonary Rehab Discharge Status?? CPAP/BiPAP Mask Type: Full CPAP/BiPAP Mask Size: Large Respiratory Rate: 18 br/min PEEP: 5 ? Common Emergency Awareness Tips IS IT [...] are strongly encouraged to quit. Please call [facility] at [phone] or [phone] ([phone]) or log in to [email or web address] for referrals to smoking cessation programs. ?? The National Suicide Prevention Hotline is available 18/05 if you or someone you know needs to find a reason to keep living. By calling 9-624-962-[employer] (0925) you'll be connected to a skilled, trained counselor at a crisis center in your area. INPATIENT DISCHARGE INSTRUCTIONS SIGNATURE MARY VALENTINE Location:[facility] Registration Date and Time:09/06/2022 15:34 EST Primary Care Physician: Ryanne Mojica NP, Fiorella MARY CONTRERAS, have received the above patient education materials/instructions and have verbalized understanding. If ambulance or transport services are being used I further acknowledge being given a choice of service. ?? If you need to contact me, please call me at this number: . Patient/Architecture Consultant Name: Patient/Architecture Consultant Signature: Relationship to Patient: Witness Name/Signature: Date: Portable XR Chest Views * [facility] , CIS S: TRANSCRIBE Rafy Beauchamp MD: VERIFY Event Display: Result: Authored Date: [id number] Chest Portable AP sitting at 4:31 AM Reason: CHF; Clinical Question(s): CHF COMPARISON: Multiple priors, the most recent 09/07/2022 FINDINGS: LINES AND TUBES: None. LUNGS AND PLEURA: There is no somewhat diffuse haziness in the lower half of the left hemithorax and moderate new haziness in the lower portion of the right hemithorax. The left hemidiaphragm is obscured and there is haziness in the left costophrenic angle. Upper lung mae are clear. Pulmonary vascularity is normal. No definite right pleural effusion. Possible left pleural effusion. No pneumothorax. HEART, MEDIASTINUM AND YAMIL: Heart is normal in size. Normal mediastinal and hilar contour. BONES AND SOFT TISSUES: No acute abnormality. IMPRESSION: New opacification in the lower half of each hemithorax, more severe on the left than the right. Findings are suspicious for lower lobe infiltrates with differential also including atelectasis and left pleural effusion. WSN: [id number] Ordering Physician: Dante Stanford Dictated By: Rafy Beauchamp MD Dictated Date/Time: 09/08/22 8:05 am Reviewed By: Rafy Beauchamp MD Signed By: Rafy Beauchamp MD Signed Date/Time: 09/08/22 8:05 am Transcribed By: MJ Transcribed Date/Time: 09/08/22 8:01 am * [facility] , CIS S: TRANSCRIBE Coco Whitaker MD, I: VERIFY Event Display: Result: Authored Date: [id number] Chest Portable Reason: Cough; Clinical Question(s): Tube Placement COMPARISON: 09/06/2022 FINDINGS: LINES AND TUBES: Nasogastric tube has been repositioned, now more optimally placed in the stomach. ET tube remains in place unchanged. LUNGS AND PLEURA: Clear lungs. Normal pulmonary vascularity. No pleural effusion. No pneumothorax. HEART, MEDIASTINUM AND YAMIL: Heart is normal in size. Normal mediastinal and hilar contour. BONES AND SOFT TISSUES: No acute abnormality. IMPRESSION: No acute abnormality. Nasogastric tube now in good position. WSN: [id number] Ordering Physician: Meng Joseph Dictated By: Coco Whitaker MD, I Dictated Date/Time: 09/07/22 7:18 am Reviewed By: Coco Whitaker MD, I Signed By: Coco Whitaker MD, I Signed Date/Time: 09/07/22 7:18 am Transcribed By: MJ Transcribed Date/Time: 09/07/22 7:17 am * [facility] , CIS S: TRANSCRIBE Sammie Guerra MD O: VERIFY Event Display: Result: Authored Date: [id number] Chest Portable Hx of Present Illness: found unresponsive in field; Reason: Other:; Line Tube Placement; Clinical Question(s): Other:; Confirm Position, Assess for Complication COMPARISON: 06/26/2017. FINDINGS: LINES AND TUBES: There is an enteric tube which loops on itself at the mid to distal esophagus. Repositioning is recommended. There is an endotracheal tube with its tip 4 cm above the shobha. LUNGS AND PLEURA: Clear lungs. Normal pulmonary vascularity. No pleural effusion. No pneumothorax. HEART, MEDIASTINUM AND YAMIL: Heart is normal in size. Normal mediastinal and hilar contour. BONES AND SOFT TISSUES: No acute abnormality. IMPRESSION: There is an enteric tube which loops on itself at the mid to distal esophagus. Repositioning is recommended. WSN: [id number] Ordering Physician: Jeannette Kay Dictated By: Sammie Guerra MD Dictated Date/Time: 09/06/22 2:39 pm Reviewed By: Sammie Guerra MD Signed By: Sammie Guerra MD Signed Date/Time: 09/06/22 2:39 pm Transcribed By: MJ Transcribed Date/Time: 09/06/22 2:[address] Cervical spine WO contrast * [facility] , CIS S: TRANSCRIBE Sammie Guerra MD O: VERIFY Event Display: Result: Authored Date: [id number] CT Head/Brain W/O Contrast, CT Cervical Spine W/O Contrast INDICATION: Hx of Present Illness: found unresponsive in field; Reason: Trauma; Clinical Question(s): Hematoma TECHNIQUE: Noncontrast head CT using axial technique was reconstructed in axial and coronal planes.Noncontrast spiral CT through the cervical spine was formatted in 3 planes. Automatic tube modulation was used for the cervical spine and iterative dose reconstruction was used for both the head and cervical spine to optimize scan parameters and image quality. CTDIvol Body: 11.90 mGy, DLP Body: 307 mGy*cm. CTDIvol Head: 39.20 mGy, DLP Head: 672 mGy*cm. COMPARISON: 12/21/2015. FINDINGS: Expert Witness View Findings, Lines and Tubes: None. BRAIN AND EXTRA-AXIAL SPACES: No parenchymal hemorrhage, midline shift, or mass effect. Vick-white matter differentiation is wellpreserved. No acute infarct. Ventricles, sulci, and basilar cisterns are normal. No white matter lesions. No subarachnoid hemorrhage. No subdural or epidural collection. CALVARIUM, SKULL BASE, AND SOFT TISSUES: No fractures or suspicious bony lesions. The paranasal sinuses and mastoid air cells are clear. Visualized orbits and globes are intact. The extracranial soft tissues are unremarkable. CERVICAL SPINE: No fracture. No acute osseous abnormalities. Normal alignment. No locked or perched facet. Intervertebral disc spaces and vertebral body heightsare preserved. OTHER BONES: No acute abnormality. CERVICAL SOFT TISSUES AND LUNG APICES: Normal soft tissues. Visualized lung apices are clear. There are endotracheal and enteric tubes. The enteric tube appears to loop on itself. IMPRESSION: No acute abnormality of the head or cervical spine. WSN: [id number] Ordering Physician: Jeannette Kay Dictated By: Sammie Guerra MD Dictated Date/Time: 09/06/22 3:07 pm Reviewed By: Sammie Guerra MD Signed By: Sammie Guerra MD Signed Date/Time: 09/06/22 3:07 pm Transcribed By: MJ Transcribed Date/Time: 09/06/22 2:[address] Head WO contrast * [facility] , CIS S: TRANSCRIBE Sammie Guerra MD: VERIFY Event Display: Result: Authored Date: [id number] CT Head/Brain W/O Contrast, CT Cervical Spine W/O Contrast INDICATION: Hx of Present Illness: found unresponsive in field; Reason: Trauma; Clinical Question(s): Hematoma TECHNIQUE: Noncontrast head CT using axial technique was reconstructed in axial and coronal planes.Noncontrast spiral CT through the cervical spine was formatted in 3 planes. Automatic tube modulation was used for the cervical spine and iterative dose reconstruction was used for both the head and cervical spine to optimize scan parameters and image quality. CTDIvol Body: 11.90 mGy, DLP Body: 307 mGy*cm. CTDIvol Head: 39.20 mGy, DLP Head: 672 mGy*cm. COMPARISON: 12/21/2015. FINDINGS: Expert Witness View Findings, Lines and Tubes: None. BRAIN AND EXTRA-AXIAL SPACES: No parenchymal hemorrhage, midline shift, or mass effect. Vick-white matter differentiation is wellpreserved. No acute infarct. Ventricles, sulci, and basilar cisterns are normal. No white matter lesions. No subarachnoid hemorrhage. No subdural or epidural collection. CALVARIUM, SKULL BASE, AND SOFT TISSUES: No fractures or suspicious bony lesions. The paranasal sinuses and mastoid air cells are clear. Visualized orbits and globes are intact. The extracranial soft tissues are unremarkable. CERVICAL SPINE: No fracture. No acute osseous abnormalities. Normal alignment. No locked or perched facet. Intervertebral disc spaces and vertebral body heightsare preserved. OTHER BONES: No acute abnormality. CERVICAL SOFT TISSUES AND LUNG APICES: Normal soft tissues. Visualized lung apices are clear. There are endotracheal and enteric tubes. The enteric tube appears to loop on itself. IMPRESSION: No acute abnormality of the head or cervical spine. WSN: [id number] Ordering Physician: Jeannette Kay Dictated By: Sammie Guerra MD Dictated Date/Time: 09/06/22 3:07 pm Reviewed By: Sammie Guerra MD Signed By: Sammie Guerra MD Signed Date/Time: 09/06/22 3:07 pm Transcribed By: MJ Transcribed Date/Time: 09/06/22 2:35 pm Patient Care team information Care Team Personnel Name: Galina HOSKINS, Ryanne Donovan Position: Reference Physician Member Role: PCP Address: Address: [address] [place] [address] Name: Jeannette Perez Position: [facility] ED OA Charge Member Role: ED Associate Name: Jeannette Kay MD Position: [facility] ED Medicine MD Member Role: ED Attending Physician Address: Address: [address] [place] [id number]- Name: Maria Elena Padgett RN Position: [facility] ED RN W/OE and Tasks Member Role: Patient Care Provider Name: Jerry Curtis RN Position: [facility] ED RN W/OE and Tasks Member Role: Patient Care Provider Care Team Related Persons Name: HENRY CONTRERASRICK Address: [address] [place] [address] Name: KATIE KITCHEN Address: home [address] [place] [address] Name: CLARITA MCCORMACK Address: home [address] [place] [address]
--- OUTSIDE RECORDS SUMMARY | 2024-04-01 10:18 | XMS_ITS | Continuity of Care Document ---
Author Organization [facility] Address [address] [place] [address]- Care Team Providers Care Appellate Law Clerk Name Role Phone Ryanne Mojica NP Primary Care Physician Encounter [facility] Date(s): 07/08/22 - 08/07/22 [facility] [address] [place] [id number]- Attending Physician: AdmJesus rivera Admitting Physician: AdmtrJesus Referring Physician: Admtr, ArEstephanie Allergies, Adverse Reactions, Alerts No Known Allergies [...] Name: Galina HOSKINS, Ryanne Donovan Address: Address: [address] [place] [address]
== END 2024-03-30 13:20 | disposition home or self-care (01) ==
PROVIDERS: Physician Assistant Surgical; PCP Family Medicine; Visit Provider Psychiatry & Neurology Neurology
PROC: 009U3ZZ Drainage of Spinal Canal, Percutaneous Approach (ICD-10-PCS; CPT 62270; principal; 2024-03-30 11:00)
DX: G47.411 Narcolepsy with cataplexy (principal)
CPT/HCPCS: 62328; 83519

== ENCOUNTER → 2024-03-30 10:49 | Outpatient (BNV) | payer OTHER, SELFPAY | PROVIDERS: PCP Family Medicine; Visit Provider Physician Assistant Surgical | DX: G47.411 Narcolepsy with cataplexy (principal) | CPT/HCPCS: 62328 ==